=== PATIENT | female | born 1995 | race Caucasian/White ===

== ENCOUNTER 2024-05-08 16:05 | Outpatient (CLI) | payer BC, SELFPAY ==
--- NOTE | ~2024-05-08 | US_ITS ---
CORRECTED REPORT corrected examination description, added w TV [facility] [place] 05/09/24 This report was recreated on 05/09/24. Original report was signed by EXAMINATION: US OB <= 14 weeks fetus w TV INDICATION: threatened miscarriage TECHNIQUE: Sonography of the pelvis was performed by transabdominal and transvaginal techniques. COMPARISON: None. RESULT: Uterus: 8.9 x 4.7 x 4.2 cm. Anteverted. Homogenous myometrium. Intrauterine gestational sac: Single present. Mean Sac Diameter: 1.46 cm, corresponding gestational age 6 week 2 days. Yolk sac: 0.24 cm . Embryo: Single present. [place] rump length: 0.61 cm, corresponding gestational age 6 weeks, 3 days. Gestational heart rate: present 112 bpm. Subgestational hematoma: Absent . Right ovary: 3.7 x 3.1 x 2.4 cm. Vascular flow is present. Corpus luteal cyst. Left ovary: 3.7 x 1.5 x 1.7 cm. Vascular flow is not well demonstrated. No adnexal mass. Pelvis free fluid: Small volume free fluid, within physiologic range. IMPRESSION: Single, live intrauterine gestation. bradycardia. Estimated Gestational Age: 6 weeks, 3 days by crown rump length. BIANCA by ultrasound 12/29/2024. Vascular flow not well demonstrated in the left ovary. This is probably related to technical artifact unless there are accompanying clinical findings of ovarian torsion. Reviewed, dictated and finalized at location [facility]. MTDD IMPRESSION: Single, live intrauterine gestation. bradycardia. Estimated Gestational Age: 6 weeks, 3 days by crown rump length. BIANCA by ultras ound 12/29/2024. Vascular flow not well demonstrated in the left ovary. This is probably related to technical artifact unless there are accompanying clinical findings of ovari an torsion.
== END 2024-05-08 16:06 | disposition home or self-care (01) ==
LOC: ANHIMG 16:11
PROVIDERS: Visit Provider Advanced Practice Midwife
DX: O20.0 Threatened abortion (principal); O36.8390 Maternal care for abnormalities of the fetal heart rate or rhythm, unspecified trimester, not applicable or unspecified; Z3A.00 Weeks of gestation of pregnancy not specified
CPT/HCPCS: 76801; 76817

== ENCOUNTER 2024-08-25 13:20 | Observation (INO) | payer BC, SELFPAY ==
[2024-08-25 12:52] VITALS: BP 144/76; PULSE 87
[2024-08-25 13:00] VITALS: BP 151/71; PULSE 81
[2024-08-25 13:53] VITALS: BMI 35.7
--- NOTE | 2024-08-30 16:10 | PM.OBTRLD ---
OB - Triage/Final Diagnosis Visit Information Date of evaluation: 08/28/24 Reason for evaluation: other (vaginal bleeding) Comments/Additional reasons for admission: I have assessed the risk for this patient, Briseida Stout, and determined that she would benefit from observation care.
--- OUTSIDE RECORDS SUMMARY | 2024-08-31 06:46 | XMS_ITS | Data Portability ---
Author Organization [facility] [place] Address [address] [place] [address] [place] [address] Assessment Encounter Date Assessment Date Assessment LastModified by Organization Details LastModified Time 07/19/2024 07/19/2024 Patient is ___weeks . Discussed plan. Not available 07/19/2024 17:23:17 08/16/2024 08/16/2024 Patient is __21_weeks . Discussed plan. [email or web address] Not available 08/16/2024 16:17:22 Plan of Treatment Reminders Order Date Submit Date Provider Last Modified By Organization Details Last Modified Time Details Appointments OB ROUTINE 2024 03:45P M Mirna Traylor CNM Not available Not available Not available Lab None recorded. Referral None recorded. Procedures None recorded. Surgeries None recorded. Imaging US, obstetric , nuchal transluce ncy 2023 024 [email or web address] [place] [facility] [address], [place], [address], 06/21/2024 22:05:47 US, obstetric , limited 2024 025 [email or web address] [place] [facility] [address], [place], [address], 08/15/2024 21:20:04 Medication Orders None recorded. Patient TargetsNo targets recorded. Patient InstructionsNo instructions recorded. Reason for Referral None Reported. Results Created Date Observation Date Name Description Value Unit Range Abnormal Flag Note LastModifiedBy Organization Detail LastModifiedTime 06/16/20 24 06/16/2024 [UNIT Y] ANEUP LOIDY NIPT fraction 5.3% normal Not Available [facility] [address] , [place], [address], 06/16/2024 02:02:48 06/16/20 24 06/16/2024 [UNIT Y] ANEUP LOIDY NIPT 22Q11.2 microdeletio n LOW RISK <1 in 10,000 normal Not Available [facility] [address], [place], [address], 06/16/2024 02:02:48 06/16/20 24 06/16/2024 [UNIT Y] ANEUP LOIDY NIPT sex chromosome aneuploidy NOT DETECT ED normal Not Available [facility] [address], [place], [address], 06/16/2024 02:02:48 06/16/20 24 06/16/2024 [UNIT Y] ANEUP LOIDY NIPT monosomy X LOW RISK <1 in 10,000 normal Not Available [facility] [address], [place], [address], 06/16/2024 02:02:48 06/16/20 24 06/16/2024 [UNIT Y] ANEUP LOIDY NIPT trisomy 13 LOW RISK <1 in 10,000 normal Not Available [facility] [address] , [place], [address], 06/16/2024 02:02:48 06/16/20 24 06/16/2024 [UNIT Y] ANEUP LOIDY NIPT trisomy 18 LOW RISK <1 in 10,000 normal Not Available [facility] [address], [place], [address], 06/16/2024 02:02:48 06/16/20 24 06/16/2024 [UNIT Y] ANEUP LOIDY NIPT trisomy 21 LOW RISK <1 in 10,000 normal Not Available [facility] [address] , [place], [address], 06/16/2024 02:02:48 06/16/20 24 06/16/2024 [UNIT Y] ANEUP LOIDY NIPT sex MALE normal Not Available [facility] [address], [place], [address], 06/16/2024 02:02:48 06/16/20 24 06/16/2024 [UNIT Y] ANEUP LOIDY NIPT gestation SINGLE TON normal Not Available [facility] [address], [place], [address], 06/16/2024 02:02:48 06/16/20 24 06/16/2024 [UNIT Y] ANEUP LOIDY NIPT for detailed report, see pdf See PDF normal Not Available [facility] [address], [place], [address], 06/16/2024 02:02:48 06/23/20 24 06/23/2024 [UNIT Y] EZEKIEL Ordoñez sickle cell disease/beta -thalassemia /hemoglobino pathies carrier screen NEGATI VE normal Not Available [facility] [address], [place], [address], 06/23/2024 02:36:24 06/23/20 24 06/23/2024 [UNIT Y] EZEKIEL Ordoñez alpha-thalas semia carrier screen NEGATI VE normal Not Available [facility] [address], [place], [address], 06/23/2024 02:36:24 06/23/20 24 06/23/2024 [UNIT Y] EZEKIEL Ordoñez cystic fibrosis carrier screen NEGATI VE normal Not Available [facility] [address], [place], [address], 06/23/2024 02:36:24 06/23/20 24 06/23/2024 [UNIT Y] EZEKIEL Ordoñez spinal muscular atrophy carrier screen NEGATI VE 2 SMN1 copies , SNP not presen t normal Not Available [facility] [address] [facility], [place], [address], 06/23/2024 02:36:24 06/23/20 24 06/23/2024 [UNIT Y] EZEKIEL RADHA ULLOA Smita for detailed report, see pdf See PDF normal Not Available [facility] [address] [facility], [place], [address], 06/23/2024 02:36:24 05/24/20 24 05/24/2024 CT/GC AND TRICH OMONA S VAGIN SUHAIL (RRNA ), URINE chlamydia trachomatis, PCR Negati ve negati ve Not Available [facility] (Lab) [address], [place], [address], 05/25/2024 14:53:59 05/24/20 24 05/24/2024 CT/GC AND TRICH OMONA S VAGIN SUHAIL (RRNA ), URINE neisseria gonorrhoeae, PCR Negati ve negati ve Not Available [facility] (Lab) [address], [place], [address], 05/25/2024 14:53:59 05/24/20 24 05/24/2024 CT/GC AND TRICH OMONA S VAGIN SUHAIL (RRNA ), URINE trichomonas vaginalis ribosomal RNA (rrna) Negati ve negati ve Not Available [facility] (Lab) [address], [place], [address], 05/25/2024 14:53:59 05/24/20 24 05/24/2024 pregn michael test, urine HCG positi ve Not Available [place] [address], [place], [address], 05/24/2024 18:21:26 06/21/2006/21/2024 CULTU RE: URINE result report SEE RESULT S BELOW Test: Cultu re: Urine Speci men Sourc e: Urine - Clean Catch Speci men Type: Urine Speci men Date: 06/21 1747 Resul t Date: 06/227 Resul t Statu s: Final resul t Abnor mal: No Resul ting Lab: [facility] [address] [facility] [facility] [address] Tel: CULTU RE ----- ----- ----- --- No growt h in 1 day (dete ction level of 10,00 0 colon ies / ml.) Not Available [facility] (Lab) [address], [place], [address], 06/22/2024 23:52:26 06/21/20 24 06/21/2024 HIV 1/2 ANTIG EN/AN TIBOD Y, REFLE X CONFI RMATI ON HIV antigen/anti body Nonrea ctive nonrea ctive HIV-1 antig en and HIV-1 /HIV- 2 antib odies were not detec sharif. No labor atory evide nce of HIV infec tion. Not Available [facility] (Lab) [address], [place], [address], 06/23/2024 12:24:16 06/21/20 24 06/21/2024 CBC W/DIF F WBC 12.2 10'3/ uL 3.5-10 .5 high Not Available [facility] (Lab) [address], [place], [address], 06/23/2024 12:24:17 06/21/20 24 06/21/2024 CBC W/DIF F RBC 4.04 10'6/ uL (based on docume nted legal sex) 3.80-5 .20 Not Available [facility] (Lab) [address], [place], [address], 06/23/2024 12:24:17 06/21/20 24 06/21/2024 CBC W/DIF F HGB 12.0 g/dL (based on docume nted legal sex) 11.6-1 5.4 Not Available [facility] (Lab) [address], [place], [address], 06/23/2024 12:24:17 06/21/20 24 06/21/2024 CBC W/DIF F HCT 36.5 % (based on docume nted legal sex) 34.0-4 5.0 Not Available [facility] (Lab) [address], [place], [address], 06/23/2024 12:24:17 06/21/20 24 06/21/2024 CBC W/DIF F MCV 90.3 fL 80.0-9 9.0 Not Available [facility] (Lab) [address], [place], [address], 06/23/2024 12:24:17 06/21/20 24 06/21/2024 CBC W/DIF F MCH 29.7 pg 27.0-3 4.0 Not Available [facility] (Lab) [address], [place], [address], 06/23/2024 12:24:17 06/21/20 24 06/21/2024 CBC W/DIF F MCHC 32.9 g/dL 32.0-3 5.5 Not Available [facility] (Lab) [address], [place], [address], 06/23/2024 12:24:17 06/21/20 24 06/21/2024 CBC W/DIF F RDW 12.7 % 11.0-1 5.0 Not Available [facility] (Lab) [address], [place], [address], 06/23/2024 12:24:17 06/21/20 24 06/21/2024 CBC W/DIF F plt 376 10'3/ uL 150-40 0 Not Available [facility] (Lab) [address], [place], [address], 06/23/2024 12:24:17 06/21/20 24 06/21/2024 CBC W/DIF F MPV 10.2 fL 8.8-12 .1 Not Available [facility] (Lab) [address], [place], [address], 06/23/2024 12:24:17 06/21/20 24 06/21/2024 CBC W/DIF F NRBC's 0.0 % 0.0 Not Available [facility] (Lab) [address], [place], [address], 06/23/2024 12:24:17 06/21/20 24 06/21/2024 CBC W/DIF F absolute NRBCs 0.0 10'3/ uL no refere nce range establ ished Not Available [facility] (Lab) [address], [place], [address], 06/23/2024 12:24:17 06/21/20 24 06/21/2024 CBC W/DIF F neutrophils 67.3 % 34.0-7 3.0 Not Available [facility] (Lab) [address], [place], [address], 06/23/2024 12:24:17 06/21/20 24 06/21/2024 CBC W/DIF F lymphocytes 24.1 % 15.0-5 0.0 Not Available [facility] (Lab) [address], [place], [address], 06/23/2024 12:24:17 06/21/20 24 06/21/2024 CBC W/DIF F monocytes 7.3 % 1.0-15 .0 Not Available [facility] (Lab) [address], [place], [address], 06/23/2024 12:24:17 06/21/20 24 06/21/2024 CBC W/DIF F eosinophils 0.5 % 0.0-8. 0 Not Available [facility] (Lab) [address], [place], [address], 06/23/2024 12:24:17 06/21/20 24 06/21/2024 CBC W/DIF F basophils 0.4 % 0.0-2. 0 Not Available [facility] (Lab) [address], [place], [address], 06/23/2024 12:24:17 06/21/20 24 06/21/2024 CBC W/DIF F immature granulocytes 0.4 % no define d refere nce range Not Available [facility] (Lab) [address], [place], [address], 06/23/2024 12:24:17 06/21/20 24 06/21/2024 CBC W/DIF F absolute neutrophils 8.2 10'3/ uL 1.5-8. 0 high Not Available [facility] (Lab) [address], [place], [address], 06/23/2024 12:24:17 06/21/20 24 06/21/2024 CBC W/DIF F absolute lymphocytes 3.0 10'3/ uL 1.0-4. 0 Not Available [facility] (Lab) [address], [place], [address], 06/23/2024 12:24:17 06/21/20 24 06/21/2024 CBC W/DIF F absolute monocytes 0.9 10'3/ uL 0.2-1. 0 Not Available [facility] (Lab) [address], [place], [address], 06/23/2024 12:24:17 06/21/20 24 06/21/2024 CBC W/DIF F absolute eosinophils 0.1 10'3/ uL 0.0-0. 6 Not Available [facility] (Lab) [address], [place], [address], 06/23/2024 12:24:17 06/21/20 24 06/21/2024 CBC W/DIF F absolute basophils 0.1 10'3/ uL 0.0-0. 3 Not Available [facility] (Lab) [address] [place], [address], 06/23/2024 12:24:17 06/21/20 24 06/21/2024 CBC W/DIF F absolute immature granulocytes 0.1 10'3/ uL 0.00-0 .10 06/22 3:26 AM: P indic ates parti al resul ts on a panel have been relea sed. Addit ional resul ts will follo w. 06/22 3:26 AM: This resul t has been final verif ied. No addit ional or smith ed resul ts are expec sharif. Not Available [facility] (Lab) [address], [place], [address], 06/23/2024 12:24:17 06/21/20 24 06/21/2024 drug scree n, urine Amphetamines : negati ve Not Available [place] [address], [place], [address], 06/21/2024 18:33:18 06/21/20 24 06/21/2024 drug scree n, urine Cannabinoids : negati ve Not Available [place] [address], [place], [address], 06/21/2024 18:33:18 06/21/20 24 06/21/2024 drug scree n, urine Cocaine: negati ve Not Available [place] [address], [place], [address], 06/21/2024 18:33:18 06/21/20 24 06/21/2024 drug scree n, urine Opiates: negati ve Not Available [place] [address], [place], [address], 06/21/2024 18:33:18 06/21/20 24 06/21/2024 drug scree n, urine Phenocyclidi ne: negati ve Not Available [place] [address], [place], [address], 06/21/2024 18:33:18 11/13/06/21/2024 drug scree n, urine Barbiturates : negati ve Not Available [place] [address], [place], [address], 06/21/2024 18:33:18 06/21/20 24 06/21/2024 drug scree n, urine Benzodiazepi mckayla: negati ve Not Available [place] [address], [place], [address], 06/21/2024 18:33:18 06/21/20 24 06/21/2024 drug scree n, urine Ethanol: negati ve Not Available [place] [address], [place], [address], 06/21/2024 18:33:18 06/21/20 24 06/21/2024 drug scree n, urine Hallucinogen s: negati ve Not Available [place] [address], [place], [address], 06/21/2024 18:33:18 06/21/20 24 06/21/2024 drug scree n, urine Inhalants: negati ve Not Available [place] [address], [place], [address], 06/21/2024 18:33:18 06/21/20 24 06/21/2024 drug scree n, urine Anabolic Steroids: negati ve Not Available [place] [address], [place], [address], 06/21/2024 18:33:18 06/21/20 24 06/21/2024 drug scree n, urine Other: negati ve Not Available [place] [address], [place], [address], 06/21/2024 18:33:18 05/24/20 24 05/24/2024 US, obste tric, follo w-up No observ ation record ed. KENIA [address], [place], [address], 05/26/2024 11:26:49 06/21/20 24 06/21/2024 US, obste tric, nucha l trans lucen cy No observ ation record ed. [email or web address] [place] [address], [place], [address], 06/21/2024 18:22:27 06/21/20 24 06/21/2024 US, obste tric, follo w-up No observ ation record ed. [address], [place], [address], 06/22/2024 17:30:11 07/24/20 24 07/24/2024 US, obste tric, trans abdom inal + trans vagin al No observ ation record ed. [email or web address] [facility] [place] [address], [place], [address], 08/18/2024 17:50:21 07/24/20 24 07/24/2024 US, obste tric, trans abdom inal + trans vagin al No observ ation record ed. [email or web address] [facility] [place] [address], [place], [address], 07/25/2024 07:35:37 08/15/19 25 08/15/2024 US, obste tric, limit ed No observ [facility]ion [facility]. [email or web address] [address], [place], [address], 08/15/2024 16:34:43 08/15/19 25 08/15/2024 US, obste tric, limit ed No observ ation record ed. [email or web address] [address], [place], [address], 08/15/2024 21:49:01 08/21/19 25 08/21/2024 US, obste tric, trans abdom inal + trans vagin al No observ ation record ed. [address] [facility] [address], [place], [address], 08/23/2024 13:00:24 08/25/19 25 08/25/2024 US, obste tric, trans abdom inal + trans vagin al No observ ation record ed. [address] [facility] [address], [place], [address], 08/29/2024 07:26:46 08/28/19 25 08/28/2024 US, obste tric, trans abdom inal + trans vagin al No observ ation record ed. [address] [facility] [address], [place], [address], 08/29/2024 07:26:16 08/28/19 25 08/28/2024 US, obste tric, trans abdom inal + trans vagin al No observ ation record ed. [address], [place], [address], 08/29/2024 07:26:40 Result Notes None recorded. Problems Name Problem SNOMED Code Status Onset Date Resolution Date Notes Provider Name and Address Organization Details Recorded Time Anxiety 16742196 Active sees mfm at [facility] Scheduled 08/21 & 08/28 Level II US and consult Yaa zamora [facility] 5 13:00:04 Asthma 467079632 Active 2023 Roya zamora [facility] 4 20:15:22 24822169 Active 2023 Roya zamora [facility] 4 19:30:51 Bicornuat e uterus 84204413 Active Yaa zamora [facility] 4 15:42:51 Bicornuat e uterus 86160466 Active Yaa Almazan sera, [facility] 4 15:42:51 Anxiety 57342731 Active sees mfm at [facility] Scheduled 08/21 & 08/28 Level II US and consult Yaa Almazan sera, [facility] 5 13:00:04 Problem Notes None recorded. Procedures Surgical History Date Name Laterality Status Provider Name and Address Organization Details Recorded Time 4 Date of Last Pap Smear completed Roya Albrecht [facility] 05/24/2024 18:21:00 8 [facility] 20:17:58 Imaging Results Imaging Date Name Status LastModified by Organization Details LastModified Time 05/24/2024 US, obstetric, follow-up completed KENIAJOANIE [address], [place], [address], 05/26/2024 11:26:49 06/21/2024 US, obstetric, nuchal translucency completed [email or web address] [place] [address], [place], [address], 06/21/2024 18:22:27 06/21/2024 US, obstetric, follow-up completed [email or web address] [address], [place], [address], 06/22/2024 17:30:11 07/24/2024 US, obstetric, transabdominal + transvaginal completed [email or web address] [facility] [place] [address], [place], [address], 08/18/2024 17:50:21 07/24/2024 US, obstetric, transabdominal + transvaginal completed [email or web address] [facility] [place] [address], [place], [address], 07/25/2024 07:35:37 08/15/2024 US, obstetric, limited completed [facility] [address], [place], [address], 08/15/2024 16:34:43 08/15/2024 US, obstetric, limited completed [email or web address] [address], [place], [address], 08/15/2024 21:49:01 08/21/2024 US, obstetric, transabdominal + transvaginal completed [address] [facility] [address], [place], [address], 08/23/2024 13:00:24 08/25/2024 US, obstetric, transabdominal + transvaginal active [address] [place], [address], 08/29/2024 07:26:46 08/28/2024 US, obstetric, transabdominal + transvaginal completed [address] [place], [address], 08/29/2024 07:26:16 08/28/2024 US, obstetric, transabdominal + transvaginal completed [address], [address], 08/29/2024 07:26:40 Procedure Notes None recorded. Medical Equipment None Reported. Allergies Allergen ID Allergen Name Allergen Category Reaction Reaction Severity Criticality Documentation Date Start Date Code Code System Note Provider Name and Address Organization Details Recorded Time 21757 ethinyl estradiol / levonorge strel medicatio n headache moderate Not available 05/24/2024 02188 8 RxNorm Roya Albrecht [facility] [place] - [facility] 20:10:59 Medications Name Sig Start Date Stop Date Status Note LastModified by Organization Details LastModified Time azithromyci n 250 mg tablet TAKE 2 TABLETS BY MOUTH FOR 1 DAY THEN TAKE 1 TABLET BY MOUTH DAILY FOR 4 DAYS 06/15 completed Not Available Not Available Not Available fluconazole 150 mg tablet TAKE 1 TABLET BY MOUTH 1 TIME 07/19 completed Not Available Not Available Not Available benzonatate 200 mg capsule 05/24 completed Not Available Not Available Not Available ondansetron HCl 4 mg tablet Take 1 tablet every 4-6 hours by oral route as needed. active Not Available Not Available No t Available prednisone 20 mg tablet 05/24 completed Not Available Not Available Not Available clonazepam 0.5 mg tablet TAKE 1 TABLET BY MOUTH TWICE DAILY NEEDED FOR ANXIETY 05/24 completed Not Available Not Available Not Available spironolact one 100 mg tablet TAKE 1 TABLET BY MOUTH DAILY 05/24 completed Not Available Not Available Not Available amoxicillin 875 mg tablet 06/15 completed Not Available Not Available Not Available albuterol sulfate HFA 90 mcg/actuati on aerosol inhaler INHALE 2 PUFFS BY MOUTH EVERY 6 HOURS NEEDED FOR WHEEZING active Not Available Not Available No t Available metformin ER 500 mg tablet,exte nded release 24 hr TAKE 1 TABLET BY MOUTH TWICE DAILY 05/24 completed Not Available Not Available Not Available amoxicillin 875 mg-potassiu m clavulanate 125 mg tablet TAKE 1 TABLET BY MOUTH TWICE DAILY FOR 7 DAYS 05/24 completed Not Available Not Available Not Available Lessina 0.1 mg-20 mcg tablet TAKE 1 TABLET BY MOUTH EVERY DAY 05/24 completed Not Available Not Available Not Available clonazepam 0.5 mg disintegrat ing tablet 05/24 completed Not Available Not Available Not Available canaglifloz in 150 mg-metformi n 500 mg tablet 05/24 completed Not Available Not Available Not Available albuterol 90 mcg-budeson carolina 80 mcg/actuati on HFA aerosol inhaler 05/24 completed Not Available Not Available Not Available Vitals Date Recorded Body height Body mass index (BMI) Body weight Systolic blood pressure Diastolic blood pressure Provider Name and Address Organization Details Last Updated DateTime 06/21/2024 162.56 cm 34.3 kg/m2 57477.47 g 137 mm[Hg] 66 mm[Hg] Roya Albrecht [facility] 4 18:30:59 Date Recorded Body weight Body mass index (BMI) Body height Systolic blood pressure Diastolic blood pressure Provider Name and Address Organization Details Last Updated DateTime 07/19/2024 11002.25 111 g 34.8 kg/m2 162.56 cm 124 mm[Hg] 81 mm[Hg] Roya Albrecht [facility] 4 17:23:54 Date Recorded Body height Body mass index (BMI) Body weight Systolic blood pressure Diastolic blood pressure Provider Name and Address Organization Details Last Updated DateTime 08/16/2024 162.56 cm 35.7 kg/m2 38709.21 296 g 139 mm[Hg] 83 mm[Hg] Roya Albrecht [facility] 5 15:12:23 Date Recorded Body height Body mass index (BMI) Body weight Systolic blood pressure Diastolic blood pressure Provider Name and Address Organization Details Last Updated DateTime 08/24/2024 162.56 cm 35.9 kg/m2 86582.80 533 g 134 mm[Hg] 66 mm[Hg] Roya Albrecht [facility] 5 09:04:53 Social History Question Answer Notes LastModified by Organizat ion Details LastModified Time Tobacco Smoking Status Never Smoker Roya Albrecht [facility] 05/24/2024 20:17:42 What Is Your Level Of Alcohol Consumption? None [email or web address] Information not available 05/24/2024 If You Are , What Was Your Level Of Alcohol Consumption Prior To ? Occasional [email or web address] Information not available 05/24/2024 How Many Years Have You Consumed Alcohol? 8 [email or web address] Information not available 05/24/2024 Are You Blind Or Do You Have Difficulty Seeing? No [email or web address] Information n ot available 05/24/2024 What Is Your Level Of Caffeine Consumption? Moderate [email or web address] Information not available 05/24/2024 In The 14 Days Before Symptom Onset, Have You Had Close Contact With A Laboratory-confirm ed COVID-19 While That Case Was Ill? No [email or web address] Information n ot available 05/24/2024 In The 14 Days Before Symptom Onset, Have You Had Close Contact With A Person Who Is Under Investigation For COVID-19 While That Person Was Ill? No [email or web address] Information not available 05/24/2024 Have You Been To An Area Known To Be High Risk For COVID-19? No [email or web address] Information not available 05/24/2024 Are You Deaf Or Do You Have Serious Difficulty Hearing? No [email or web address] Information not available 05/24/2024 What Type Of Diet Are You Following? REGULAR [email or web address] Information n ot available 05/24/2024 What Is The Highest Grade Or Level Of School You Have Completed Or The Highest Degree You Have Received? 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 Yes [email or web address] Information not available 05/24/2024 Do You Use Protection During Sex? No [email or web address] Information not available 05/24/2024 Do You Use Your Seat Belt Or Car Seat Routinely? Yes [email or web address] Information not available 05/24/2024 Do You Have Smoke And Carbon Monoxide Detectors In Your Home? Yes [email or web address] Information not available 05/24/2024 How Much Tobacco Do You Smoke? No [email or web address] Information not available 05/24/2024 Do You Feel Stressed (tense, Restless, Nervous, Or Anxious, Or Unable To Sleep At Night)? [id number] [email or web address] Information not available 05/24/2024 Do You Use Any Illicit Or Recreational Drugs? Yes Information not available 05/24/2024 Do You Use Sunscreen Routinely? No [email or web address] Information not available 05/24/2024 Has Tobacco Cessation Counseling Been Provided? Yes [email or web address] Information not available 05/24/2024 On What Date Was Tobacco Cessation Counseling Provided? 08/16/2024 [email or web address] Information not available 08/16/2024 Have You Used IV Drugs? No [email or web address] Information not available 05/24/2024 Do You Or Have You Ever Used Any Other Forms Of Tobacco Or Nicotine? No [email or web address] Information not available 05/24/2024 Sex: Unknown Functional Status Question Answer Note LastModified by Organizat ion Details LastModified Time Do you have difficulty walking or climbing stairs? No [email or web address] Information not available 05/24/2024 Are you able to walk? YESWOREST [email or web address] Information not available 05/24/2024 Are you able to care for yourself? Yes [email or web address] Information not available 05/24/2024 Do you have difficulty dressing or bathing? No [email or web address] Information not available 05/24/2024 What is your exercise level? Occasional [email or web address] Information not available 05/24/2024 Mental Status None recorded. Family History Relationship Description Onset Age of this Age Resolved Age Notes LastModified by Organization Details LastModified Time Father Diabetes mellitus [email or web address] Not available 05/24 18:21:00 Maternal Grandmother Malignant tumor of breast 60 Not available 05/24 20:17:04 Paternal Uncle Malignant tumor of lung [email or web address] Not available 05/24 20:17:14 Medical History Condition Response Allergies (Food, seasonal, environmental ) Y Other N Drug/Latex Allergies/Reactions N Blood Transfusion N Breast Cancer N Dermatologic Disorders N Lung Disease N Defects or Inherited Disease N Breast Problem Y Gestational Diabetes N Hematologic disorders N Anesthesia Complications N History of STI Y Deep Vein Thrombosis N Polycystic ovary syndrome N Anxiety Disorder Y Autoimmune disease N Arthritis N Polyps N Infertility N Acid Reflux (GERD) N History of abnormal pap Y Cancer N Varicosities N Stroke N Neurologic/Epilepsy N Endometriosis N High Cholesterol N Fibromyalgia N Headaches Y Kidney Disease N Heart Problems N Thyroid Problems N Kidney or Bladder Problems N GI Problems N Eating Disorder N Anemia N Art (IVF or FET) N Psychiatric Illness N Ovarian Cancer N Diabetes N Pulmonary (TB, Asthma) N Hepatitis/Liver Disease N No Past Medical History N Eczema N Urinary Tract Infection N Abuse/Domestic Violence N Asthma Y Trauma/Violence N Depression/ depression Y Heart Disease N Pre-Eclampsia N Hypertension N Osteoporosis N Thrombophilias N Gynecological History Statement/Question Response Abnormal Pap Y Date of Last Mammogram Date of LMP 03/18/2024 On BCP's at Conception? N Was last menstrual period normal Y STIs/STDs Y HPV Vaccine Y Duration of Flow (days) 6 Current Control Method Date of Last Colonoscopy Frequency of Cycle (Q days) 28 Sexually Active? Y Date of DEXA bone scan Age of first menstrual cycle 12 Date of Last Pap Smear 02/03/2024 Sexual Problems? N LMP Definite 03/02/2020 Obstetrics History GPAL:G 1 P 0 0 0 0 Type Value Living 0 Total 1 Past Encounters Encounter ID Performer Location Encounter Start Date Encounter Closed Date Diagnosis/Indication Diagnosis SNOMED-CT Code Diagnosis ICD10 Code Diagnosis Note [id number] Lenore Hernandez [place] [address],[place] [address] 05/24/2024 16:32:42 05/24/2024 17:47:12 [id number] Mirna Traylor [place] [address],[place] [address] 05/24/2024 16:33:03 05/25/2024 09:42:07 Amenorrhea 25866847 N91.2 pap not collected, records release signedasth ma-inhaler as neededPNV dailywill talk to dr. herrera about clonazepam , will await her answer, only use as necessary prn usereviewe d office, precaution s and education plan 12 week new ob and first look with nipt Venereal d isease screening 129448903 Z11.3 Anxiety 25041423 F41.9 [id number] [facility] [address],[place] [address] 06/21/2024 17:33:21 06/22/2024 02:59:39 screening 578976793 Z36.82 Z3A.12 [id number] Mirna Traylor [facility] [address] [place] [address] 06/21/2024 17:34:12 06/23/2024 12:41:54 Gestation period, 13 weeks 70369972 Z3A.13 Routine an tenatal care 032021701 Z34.90 [id number] Mirna Traylor [facility] [address] [place] [address] 07/19/2024 17:12:06 07/19/2024 17:48:43 [id number] Lenore Hernandez [place] [address],[place] [address] 08/15/2024 14:26:05 08/15/2024 15:13:27 Abdominal pain in 381488843 O99.891 Z3A.21 [id number] [facility] [address],[place] [address] 08/16/2024 14:58:53 08/16/2024 16:21:44 Gestation period, 21 weeks 70240735 Z3A.21 [id number] [facility] [address],[place] [address] 08/24/2024 08:55:14 08/24/2024 10:27:52 Short cervical length in 982443530 O26.879 discussed and reviewed us, cerclage, progestero ne, f/u mfm and await rec Health Concerns Section Related Observation LastModified by Organization Detai ls LastModified Time None Recorded Concern Status LastModified by Organization Details LastModified Time None Recorded Advance Directives Directive None Recorded Payers Encounter Date Sequence Insurance Name Policy Number Policy Barry Covered Member ID Barry Member ID Guarantor Name 06/21/2024 1 [place] [id number] Radeana Gentzyel [id number] 27 Radeana Gentzyel 07/19/2024 1 [place] [id number] Radeana Gentzyel [id number] 27 Radeana Gentzyel 08/15/2024 1 [place] [id number] Radeana Gentzyel [id number] 27 Radeana Gentzyel 08/16/2024 1 [place] [id number] Radeana Gentzyel [id number] 27 Radeana Gentzyel 08/24/2024 1 [place] [id number] Radeana Gentzyel [id number] 27 Radeana Gentzyel Notes Date Note Type Note Provider Name and Address Organization Details Recorded Time 08/24/2024 text/html had an us at [facility] and wants to review, short cervical length started on vaginal progesterone Mirna Traylor, [facility] [address], [place], [address], [place] [facility] 08/24/2024 09:52:34 OBGyn Episode Ob Episode Information Episode Created Date Number of Fetuses Patient Bloodtype Patient rh Status Prepregnancy Weight lbs Domestic Partner Domestic Partner Phone Father Name Microbial Specialist Status 06/21/20 24 1 O Positive 202 Amarilis Murry l OPEN Fetus Data First Name Last Name Admitted to NICU Weight (g) Sex Living Outcome Pediatric Complications Fetus ID Race Codes Race Delivery Type [id number] Problems Problem Notes Problem Name Start Date End Date Resolution Snomed Code Not e Bicornuate uterus 80190577 Anxiety 26119785 [facility] & 08/28 Level II US and consult Esteban Calculation Initial Esteban Date Initial Exam Date Initial Exam Provider Initial Ultrasound Date Last Menstrual Period Date Ultra Sound Weeks Gestation 12/23/2024 05/24/2024 Mirna Traylor 05/24/2024 03/18/2024 8 Eighteen To Twenty Week Esteban Update Ultra Sound Date Fundal Height At Umbil Quickening Date Ultra Sound Latest Weeks Gestation Final Etseban Confirmed By Final Esteban Confirmed Date Final Esteban Date Ultra Sound Latest Days Gestation 0 [email or web address] 08/22/2024 12/29/19 25 0 Pre- Flowsheet Flowsheet Date 06/21/2024 Fields Score Blood Edema Fundus Height Fundus Units Glucose Ketones Leukocytes Nitrite Labor Signs Protein Cervic Dilation Cervic Effacement Cervic Station neg none none trace Type Weight in lbs Pre/Post Dialysis Refused Weight 200.442757459307 BP Diastolic BP Location Tested BP Systolic BP Type 66 137 Fetus Heart Rate Present Fetus Movement A No Comments Patient is having some pain and discharge. reviewed precaution, education, reviewed us bicornuate uterus, to [facility] to for consult, risk of depression/anxiety in and pp. begin routine care Flowsheet Date 07/19/2024 Fields Score Blood Edema Fundus Height Fundus Units Glucose Ketones Leukocytes Nitrite Labor Signs Protein Cervic Dilation Cervic Effacement Cervic Station none Type Weight in lbs Pre/Post Dialysis Refused 203.93775778203 BP Diastolic BP Location Tested BP Systolic BP Type 81 124 Fetus Heart Rate Present Fetus Movement A Yes Comments Patient is having headache, discharge, nausea and vomiting. ok for excedrin tension if does not resolve call for imitrex rx, ok for otc meds as well, stuffiness and cold sxs, reviewed education and precautions f/u anatomy at 20 weeks Flowsheet Date 08/15/2024 Fields Score Blood Edema Fundus Height Fundus Units Glucose Ketones Leukocytes Nitrite Labor Signs Protein Cervic Dilation Cervic Effacement Cervic Station Type Weight in lbs Pre/Post Dialysis Refused BP Diastolic BP Location Tested BP Systolic BP Type Fetus Heart Rate Present Fetus Movement Comments Flowsheet Date 08/16/2024 Fields Score Blood Edema Fundus Height Fundus Units Glucose Ketones Leukocytes Nitrite Labor Signs Protein Cervic Dilation Cervic Effacement Cervic Station none Type Weight in lbs Pre/Post Dialysis Refused 208.100232308378 BP Diastolic BP Location Tested BP Systolic BP Type 83 139 Fetus Heart Rate Present A 147 Present Fetus Movement A Yes Comments Patient step son bounce off stomach. Patient states that is having pain and cramping. Patient was seen yesterday and was told everything was okay. US wnl, discussed precautions and education, no FM yet, anterior placenta, has visit with [facility] for level 2 next week. discussed plan questions answered Flowsheet Date 08/24/2024 Fields Score Blood Edema Fundus Height Fundus Units Glucose Ketones Leukocytes Nitrite Labor Signs Protein Cervic Dilation Cervic Effacement Cervic Station neg none Type Weight in lbs Pre/Post Dialysis Refused 209.586903243316 BP Diastolic BP Location Tested BP Systolic BP Type 66 134 Fetus Heart Rate Present Fetus Movement A Yes Comments 21wk shortened cervix MFM us per SP 8Am to discuss. Patient states that having some pain. Menstrual History Last Menstrual Date Menses Monthly On Bcp Conception Prior Menses Frequency Hcg Plus Date Menarche Onset Age 0803/18/2024 Delivery Information Delivery Date Delivery Type Labor Anesthesia Weeks Gestation Incision Type Labor Labor Length Hrs Delivered By Post Complications Tubal Sterilization Discharge Date Comments Discharge Information Feeding Method Contraceptive Method Maternal HG B and HCT Levels
--- OUTSIDE RECORDS SUMMARY | 2024-08-31 06:46 | XMS_ITS | Continuity of Care Document ---
Author Organization [facility] [place] Address [address] [place] [address] Assessment No assessment recorded. Plan of Treatment Reminders Order Date Submit Date Provider Last Modified By Organization Details Last Modified Time Details Appointments OB ROUTINE 2024 03:45P M Mirna Traylor CNM Not available Not available Not available Lab None recorded . Referral None recorded . Procedures None recorded . Surgeries None recorded . Imaging None recorded . Medication Orders None recorded . Patient TargetsNo targets recorded. Patient InstructionsNo instructions recorded. Reason for Referral None Reported. Results Created Date Observation Date Name Description Value Unit Range Abnormal Flag Note LastModifiedBy Organization Detail LastModifiedTime 06/21/20 24 06/21/2024 US, obste tric, nucha l trans lucen cy No observ ation record ed. [email or web address] [place] [address], [place], [address], 06/21/2024 18:22:27 06/21/20 24 06/21/2024 US, obste tric, follo w-up No observ ation record ed. [address], [place], [address], 06/22/2024 17:30:11 07/24/20 24 07/24/2024 US, obste tric, trans abdom inal + trans vagin al No observ ation record ed. [email or web address] [facility] [address] [facility] [facility], [place], [address], 08/18/2024 17:50:21 07/24/20 24 07/24/2024 US, obste tric, trans abdom inal + trans vagin al No observ ation record ed. [address] [facility] [place] [address], [place], [address], 07/25/2024 07:35:37 08/15/19 25 08/15/2024 US, obste tric, limit ed No observ ation record ed. [facility] [address], [place], [address], 08/15/2024 16:34:43 08/15/19 25 08/15/2024 US, obste tric, limit ed No observ ation record ed. [email or web address] [address] [facility], [place], [address], 08/15/2024 21:49:01 08/21/19 25 08/21/2024 US, obste tric, trans abdom inal + trans vagin al No observ ation record ed. [address] [facility] [place] [address], [place], [address], 08/23/2024 13:00:24 08/25/19 25 08/25/2024 US, obste tric, trans abdom inal + trans vagin al No observ ation record ed. [address] [facility] [address], [address], 08/29/2024 07:26:46 08/28/19 25 08/28/2024 US, obste tric, trans abdom inal + trans vagin al No observ ation record ed. [address], [address], 08/29/2024 07:26:16 08/28/19 25 08/28/2024 US, obste tric, trans abdom inal + trans vagin al No observ ation record ed. [address], [place], [address], 08/29/2024 07:26:40 Result Notes None recorded. Problems Name Problem SNOMED Code Status Onset Date Resolution Date Notes Provider Name and Address Organization Details Recorded Time Anxiety 52311476 Active sees mfm at [facility] Scheduled 08/21 & 08/28 Level II US and consult Yaa zamora [facility] 5 13:00:04 Asthma 098118313 [facility] 20[facility] 20:15:22 54472755 Active 2023 Roya zamora [facility] 4 19:30:51 Bicornuat e uterus 58584211 Active Yaa Almazan [facility] 4 15:42:51 Bicornuat e uterus 73804235 Active Yaa Almazan [facility] 4 15:42:51 Anxiety 67911888 Active sees mfm at [facility] Scheduled 08/21 & 08/28 Level II US and consult Yaa zamora [facility] 5 13:00:04 Problem Notes None recorded. Procedures Surgical History Date Name Laterality Status Provider Name and Address Organization Details Recorded Time 4 Date of Last Pap Smear completed Roya Albrecht [facility] 05/24/2024 18:21:00 8 Breast Surgery completed Roya Albrecht [facility] 05/24/2024 20:17:58 Imaging Results None recorded. Procedure Notes None recorded. Medical Equipment None Reported. Allergies Allergen ID Allergen Name Allergen Category Reaction Reaction Severity Criticality Documentation Date Start Date Code Code System Note Provider Name and Address Organization Details Recorded Time 18191 ethinyl estradiol / levonorge strel medicatio n headache moderate Not available 05/24/2024 78291 8 RxNorm Roya Albrecht [facility] 20:10:59 Medications Name Sig Start Date [...] Updated DateTime 08/24/2024 162.56 cm 35.9 kg/m2 04476.80 533 g 134 mm[Hg] 66 mm[Hg] Roya Albrecht [facility] 09:04:53 Social History Question Answer Notes LastModified by Organizat ion Details LastModified Time Tobacco Smoking Status Never Smoker Roya Albrecht null, [facility] 05/24/2024 20:17:42 What Is Your Level Of Alcohol Consumption? None [email or web address] Information not available 05/24/2024 If You Are , What Was Your Level Of Alcohol Consumption Prior To ? Occasional [email or web address] Information not available 05/24/2024 How Many Years Have You Consumed Alcohol? 8 [email or web address] Information not available 05/24/2024 Are You Blind Or Do You Have Difficulty Seeing? No [email or web address] Information n ot available 05/24/2024 What Is Your Level Of Caffeine Consumption? Moderate [email or web address] Information not available 05/24/2024 In The 14 Days Before Symptom Onset, Have You Had Close Contact With A Laboratory-confirm ed COVID-19 While That Case Was Ill? No Information n ot available 05/24/2024 In The 14 Days Before Symptom Onset, Have You Had Close Contact With A Person Who Is Under Investigation For COVID-19 While That Person Was Ill? No [email or web address] Information not available 05/24/2024 Have You Been To An Area Known To Be High Risk For COVID-19? No [email or web address] Information not available 05/24/2024 Are You Deaf Or Do You Have Serious Difficulty Hearing? No [email or web address] Information not available 05/24/2024 What Type Of Diet Are You Following? REGULAR [email or web address] Information n ot available 05/24/2024 What Is The Highest Grade Or Level Of School You Have Completed Or The Highest Degree You Have Received? 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 Yes [email or web address] Information not available 05/24/2024 Do You Use Protection During Sex? No [email or web address] Information not available 05/24/2024 Do You Use Your Seat Belt Or Car Seat Routinely? Yes [email or web address] Information not available 05/24/2024 Do You Have Smoke And Carbon Monoxide Detectors In Your Home? Yes Information not available 05/24/2024 How Much Tobacco Do You Smoke? No [email or web address] Information not available 05/24/2024 Do You Feel Stressed (tense, Restless, Nervous, Or Anxious, Or Unable To Sleep At Night)? NW82465-2 [email or web address] Information not available 05/24/2024 Do You Use Any Illicit Or Recreational Drugs? Yes [email or web address] Information not available 05/24/2024 Do You Use Sunscreen Routinely? No [email or web address] Information not available 05/24/2024 Has Tobacco Cessation Counseling Been Provided? Yes [email or web address] Information not available 05/24/2024 On What Date Was Tobacco Cessation Counseling Provided? 08/16/2024 [email or web address] Information not available 08/16/2024 Have You Used IV Drugs? No [email or web address] Information not available 05/24/2024 Do You Or Have You Ever Used Any Other Forms Of Tobacco Or Nicotine? No [email or web address] Information not available 05/24/2024 Sex: Unknown Functional Status Question Answer Note LastModified by Organizat ion Details LastModified Time Do you have difficulty walking or climbing stairs? No [email or web address] Information not available 05/24/2024 Are you able to walk? YESWOREST Information not available 05/24/2024 Are you able to care for yourself? Yes [email or web address] Information not available 05/24/2024 Do you have difficulty dressing or bathing? No [email or web address] Information not available 05/24/2024 What is your exercise level? Occasional [email or web address] Information not available 05/24/2024 Mental Status None recorded. Family History Relationship Description Onset Age of this Age Resolved Age Notes LastModified by Organization Details LastModified Time Father Diabetes mellitus [email or web address] Not available 05/24 18:21:00 Maternal Grandmother Malignant tumor of breast 60 [email or web address] Not available 05/24 20:17:04 Paternal Uncle Malignant tumor of lung [email or web address] Not available 05/24 20:17:14 Medical History Condition [...] SNOMED-CT Code Diagnosis ICD10 Code Diagnosis Note [id number] Lenore David [place] [address] [address] 08/15/2024 14:26:05 08/15/2024 15:13:27 Abdominal pain in 568049762 O99.891 Z3A.21 [id number] Mirna Traylor CNM [place] [address] [address] 08/16/2024 14:58:53 08/16/2024 16:21:44 Gestation period, 21 weeks 87438746 Z3A.21 [id number] Mirna Traylor CNM [place] [address] [address] 08/24/2024 08:55:14 08/24/2024 10:27:52 Short cervical length in 823347536 O26.879 discussed and reviewed us, cerclage, progestero ne, f/u [facility] and await rec Health Concerns Section Related Observation LastModified by Organization Detai ls LastModified Time None Recorded Concern Status LastModified by Organization Details LastModified Time None Recorded Payers Encounter Date Sequence Insurance Name Policy Number Policy Barry Covered Member ID Barry Member ID Guarantor Name 08/24/2024 1 [place] [id number] Radmaximo Stout [id number] Radeatricia Stout Notes Date Note Type Note Provider Name and Address Organization Details Recorded Time 08/24/2024 [email or web address] had an us at [facility] and wants to review, short cervical length started on vaginal progesterone Mirna Traylor CNM [address], [place], [address], [facility] 08/24/2024 09:52:34 OBGyn Episode Ob Episode Information Episode Created Date Number of Fetuses Patient Bloodtype Patient rh Status Prepregnancy Weight lbs Domestic Partner Domestic Partner Phone Father Name Rest Room Maid Status 06/21/20 24 1 O Positive 202 Nathana arian Murry l OPEN Fetus Data First Name Last Name Admitted to NICU Weight (g) Sex Living Outcome Pediatric Complications Fetus ID Race Codes Race Delivery Type [id number] Problems Problem Notes Problem Name Start Date End Date Resolution Snomed Code Not e Bicornuate uterus 15462058 Anxiety 54865513 sees [facility] kristi sebastianySchedstormy 08/21 & 08/28 Level II US and consult Esteban Calculation Initial Esteban Date Initial Exam Date Initial Exam Provider Initial Ultrasound Date Last Menstrual Period Date Ultra Sound Weeks Gestation 12/23/2024 05/24/2024 Mirna Traylor 05/24/2024 03/18/2024 8 Eighteen To Twenty Week Esteban Update Ultra Sound Date Fundal Height At Umbil Quickening Date Ultra Sound Latest Weeks Gestation Final Esteban Confirmed By Final Esteban Confirmed Date Final Esteban Date Ultra Sound Latest Days Gestation 0 [email or web address] 08/22/2024 12/29/19 25 0 Pre-rachid Flowsheet Flowsheet Date 06/21/2024 Fields Score Blood Edema Fundus Height Fundus Units Glucose Ketones Leukocytes Nitrite Labor Signs Protein Cervic Dilation Cervic Effacement Cervic Station neg none none trace Type Weight in lbs Pre/Post Dialysis Refused Weight 200.862300143174 BP Diastolic BP Location Tested BP Systolic BP Type 66 137 Fetus Heart Rate Present Fetus Movement A No Comments Patient is having some pain and discharge. reviewed precaution, education, reviewed us bicornuate uterus, to mfm to for consult, risk of depression/anxiety in and pp. begin routine care Flowsheet Date 07/19/2024 Fields Score Blood Edema Fundus Height Fundus Units Glucose Ketones Leukocytes Nitrite Labor Signs Protein Cervic Dilation Cervic Effacement Cervic Station none Type Weight in lbs Pre/Post Dialysis Refused 203.57993286389 BP Diastolic BP Location Tested BP Systolic [...] Type Weight in lbs Pre/Post Dialysis Refused 208.998445211780 BP Diastolic BP Location Tested BP Systolic BP Type 83 139 Fetus Heart Rate Present A 147 Present Fetus Movement A Yes Comments Patient step son bounce off stomach. Patient states that is having pain and cramping. Patient was seen yesterday and was told everything was okay. US wnl, discussed precautions and education, no FM yet, anterior placenta, has visit with m for level 2 next week. discussed plan questions answered Flowsheet Date 08/24/2024 Fields Score Blood Edema Fundus Height Fundus Units Glucose Ketones Leukocytes Nitrite Labor Signs Protein Cervic Dilation Cervic Effacement Cervic Station neg none Type Weight in lbs Pre/Post Dialysis Refused 209.568183461826 BP Diastolic BP Location Tested BP Systolic [...]
--- OUTSIDE RECORDS SUMMARY | 2024-08-31 11:34 | XMS_ITS | Clinical Summary ---
Author Organization [facility] [place] [address] Address [address] [place] [id number] Care Team Providers Care Door Opener Name Role Phone Yamel Major NP Primary Care Provider Allergies No known active allergies Medications clonazePAM (KlonoPIN) 0.5 mg tablet Take 1 tablet (0.5 mg total) by mouth 2 (two) times a day Active spironolactone (ALDACTONE) 100 mg tablet Take 1 tablet (100 mg total) by mouth daily 2 Active levonorgestreL-e thinyl estrad (LUTERA) 0.1-20 mg-mcg per tablet Take 1 tablet by mouth daily 2 Active metFORMIN XR (GLUCOPHAGE XR) 500 mg 24 hr tablet 3 Active montelukast (SINGULAIR) 10 mg tablet Take 1 tablet (10 mg total) by mouth 2 (two) times a day as needed 2 Active benzonatate (TESSALON) 200 mg capsuleIndicatio ns:Mild intermittent asthma with exacerbation Take 1 capsule (200 mg total) by mouth 3 (three) times a day as needed for cough 30 capsule 3 Active Additional Information Patient not taking.Reported on 05/29/2024 albuterol HFA (ProAir HFA) 90 mcg/actuation inhalerIndicatio ns:Acute lower respiratory infection Inhale 2 puffs every 6 (six) hours as needed for wheezing 1 each 4 Active Active Problems No known active problems Medical History Medical History Date Comments Back pain Back pain; Comme nts: [facility] 06/27/2015 - Family History Medical History Relation Name Comments Hypertension Mother Hypertension; Relation Name Status Comments Mother Social History Tobacco Use Types Packs/Day Years Used Date Smoking Tobacco: Never Smokeless Tobacco: Never Alcohol Use Standard Drinks/Week Comments No 0 (1 standard drink = 0.6 oz pur e alcohol) Personal Safety Answer Date Recorded Getting School Help Needed Not on file 10/08 Comments No Sex and Gender Information Value Date Recorded Sex Assigned at Not on file Legal Sex Female 3:49 AM [employer]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 [employer]ER Gender Identity Not on file Sexual Orientation Not on file Obstetrics History Last Filed Vital Signs Vital Sign Reading Time Taken Comments Blood Pressure 121/81 05/29/2024 9:28 AM CDT Pulse 96 05/29/2024 9:28 AM CDT Temperature 36.6 ??C (97.9 ??F) 05/29/2024 9:28 AM CD T Respiratory Rate 24 05/29/2024 9:28 AM CDT Oxygen Saturation 97% 05/29/2024 9:28 AM CDT Inhaled Oxygen Concentration - - Weight 90.3 kg (199 lb 1.6 oz) 05/29/2024 9:28 A M CDT Height 165.1 cm (5' 5 ) 05/29/2024 9:28 AM CDT Body Mass Index 33.13 05/29/2024 9:28 AM CDT Plan of Treatment Health Maintenance Due Date Last Done Comments Cervical Cancer Screening 1997 Depression Screening 1997 Hepatitis C Screening 1997 Pneumococcal vaccine <65 (1 of 2 - PCV) 2003 DTaP/Tdap/Td Vaccine (1 - Tdap) 2008 Varicella Vaccines (1 of 2 - 13+ 2-dose series) 2010 Hepatitis B Screening 2015 Regular Well Visit/Exam 18-64 2015 Influenza Vaccine (#1) 2024 1, 05/14/2019, 05/14/2019, Additional history exists HPV Vaccines Aged Out No longer eligi ble based on patient's age to complete this topic Insurance [facility] Address: [address] [address] [place] [address] Care Teams Door Opener Relationship Specialty Start Date End Date Yamel Major NP PCP - General 02/21/20
--- OUTSIDE RECORDS SUMMARY | 2024-08-31 11:34 | XMS_ITS | Clinical Summary ---
Author Organization [facility] uis Address [address] [place] [address] Phone Care Team Providers Care Middleware Architect Name Role Phone Unavailable Primary Care Provider Unavailabl e Medications progesterone 200 mg vaginal suppository compound Insert 1 Suppository vaginally daily each evening at bedtime until 36 weeks and 6 days gestation. 30 Suppository 4 08/22/2024 3:44 PM DATA DELIVERABLES MANAGER 08/22/19 25 Active Active Problems Problem Noted Date Diagnosed Date Vaginal spotting 08/25/2024 Estimated Date of Delivery Comme nts Yes 12/29/2024 Based on Other B asis Encounters Date Type Department Care Team Description 08/28/2024 8:10 AM DATA DELIVERABLES MANAGER - 08/28/2024 11:59 PM DATA DELIVERABLES MANAGER Hospital Encounter [facility] Maternal and Ground Floor S Vitaliy Delgadoas [address] [facility] [place] [address] Key Coulter MD Arrived Discharge Disposition: Home or Self Care 08/25/2024 3:15 PM DATA DELIVERABLES MANAGER - 08/25/2024 11:59 PM DATA DELIVERABLES MANAGER Hospital Encounter [facility] Maternal and Ground Floor [place] [address] [facility] [place] [address] Discharge Disposition: Home or Self Care 08/25/2024 3:00 PM DATA DELIVERABLES MANAGER - 08/25/2024 5:00 PM DATA DELIVERABLES MANAGER Hospital Encounter [facility] OB Triage [address] [facility] [place] [address] Dov Adkins MD Vaginal spotting Discharge Disposition: Home or Self Care 08/22/2024 Orders Only [facility] Maternal and Ground Floor [place] [address] [facility] [place] [address] Cosme Traylor NP Short cervix affecting (Primary Dx) 08/22/2024 Orders Only [facility] Maternal and Ground Floor [place] [address] [place] [address] Key Coulter MD 08/21/2024 3:00 PM DATA DELIVERABLES MANAGER - 08/21/2024 11:59 PM DATA DELIVERABLES MANAGER Hospital Encounter [facility] Emma Nichole [address] [place] [phone] Garrett Loja MD Discharge Disposition: Home or Self Care 07/25/2024 External Device Data STL ABSTRACTION Provider, Abstract 07/24/2024 1:56 PM DATA DELIVERABLES MANAGER - 07/24/2024 11:59 PM DATA DELIVERABLES MANAGER Hospital Encounter [facility] Emma Nichole [address] [place] [phone] Cosme Traylor NP Discharge Disposition: Home or Self Care 06/01/2024 Orders Only [facility] Maternal and Ground Floor [place] [address] [facility] [place] [address] Cosme Traylor NP drug exposure (CMS/HCC) (Primary Dx) from Last 3 Months Social History Tobacco Use Types Packs/Day Years Used Date Smoking Tobacco: Never Assessed Feeling Safe Answer Date Recorded Are you in a relationship wi th someone who hurts you emotionally and/or physically? Patient unable to answer 08/25/2024 Estimated Date of Delivery Comme nts Yes 12/29/2024 Based on Other B asis Sex and Gender Information Value Date Recorded Sex Assigned at Not on file Legal Sex Female 2:33 PM CDT Gender Identity Not on file Sexual Orientation Not on file Last Filed Vital Signs Vital Sign Reading Time Taken Comments Blood Pressure 129/62 08/25/2024 3:00 PM DATA DELIVERABLES MANAGER Pulse 81 08/25/2024 3:00 PM DATA DELIVERABLES MANAGER Temperature 36.7 ??C (98.1 ??F) 08/25/2024 3:00 PM CS T Respiratory Rate 18 08/25/2024 3:00 PM DATA DELIVERABLES MANAGER Oxygen Saturation 100% 08/25/2024 3:00 PM DATA DELIVERABLES MANAGER Inhaled Oxygen Concentration - - Weight 95.7 kg (211 lb) 08/25/2024 3:08 PM DATA DELIVERABLES MANAGER Height - - Body Mass Index - - Plan of Treatment Upcoming Encounters Date Type Department Care Team (Late st Contact Info) Description 09/18/2024 3:30 PM DATA DELIVERABLES MANAGER Appointment [facility] Maternal and Health [facility] [address] Emma Nichole 3[address] [place] [address] Key Coulter MD [address] [place] [address] 12/29/2024 Hospital Encounter [facility] OB Triage [address] [place] [address] Dov Adkins MD [address] [facility] [address] [place] [address] Health Maintenance Due Date Last Done Comments DTAP/TDAP/TD VACCINES (1 - Tdap) 2016 HEPATITIS B VACCINES (1 of 3 - 19+ 3-dose series) 2016 CERVICAL CANCER SCREENING 2018 INFLUENZA VACCINE (#1) 2024 Preventative Visit- Commercial 08/09/2024 HPV VACCINES Aged Out No longer eligi ble based on patient's age to complete this topic RSV VACCINE (60+ or ) (No Doses Required) Completed Procedures Procedure Name Priority Date/Time Associated Diagnosis Comments US OB LTD 1 OR MORE FETUS + TV Routine 08/28/2024 8:46 AM DATA DELIVERABLES MANAGER drug exposure (CMS/HCC) Obesity (BMI 30-39.9) Anxiety during Short cervix affecting US OB LTD 1 OR MORE FETUS + TV Routine 08/25/2024 4:25 PM DATA DELIVERABLES MANAGER US OB DETAIL SINGLE GEST Routine 08/21/2024 4:23 PM DATA DELIVERABLES MANAGER drug exposure (CMS/HCC) Obesity (BMI 30-39.9) Anxiety during US OB 14+ WKS SINGLE GEST Routine 07/24/2024 2:40 PM DATA DELIVERABLES MANAGER drug exposure (CMS/HCC) screening for malformation using ultrasonics from Last 3 Months Results * US OB LTD 1 OR MORE FETUS + TV (08/28/2024 8:46 AM DATA DELIVERABLES MANAGER) Only the most recent of2 resultswithin the time period is included. Anatomical Region Laterality Modality Pelvis Ultrasound 08/28/2024 8:23 AM DATA DELIVERABLES MANAGER Narrative 08/28/2024 8:55 AM DATA DELIVERABLES MANAGER STL LIMITED ----- Pat. Name: JORDI STOUT Study Date: 08/28/2024 8:23am Pat. NO: [id number] Referring ??: COSME ??FLORY TRAYLOR Site: [facility] [employer]: Sanna Rodriguez RDMS : 1995 Age: 29 ----- INDICATION ----- Cervical Shortening, Confirmed Exposure to Medications / Drugs, Suspected Damage ?clonazepam to Fetus Asthma Complicating Maternal Obesity (BMI<40) Complicating Anxiety, Maternal CODING ----- Diagnoses ? Z3A.22: Weeks of gestation ?O99.342: Other mental disorders complicating ?O99.212: Obesity complicating ?O99.512: Diseases of the respiratory system complicating ?O35.5XX0: Maternal care for (suspected) damage to fetus by drugs ?O26.872: Cervical shortening Procedures ?38654: Ultrasound, uterus, real time with image documentation, limited one or more fetuses ?54254: Ultrasound, uterus, real time with image documentation HISTORY ----- OB History ? 1. Para 0 MATERNAL ASSESSMENT ----- Physical Exam ? Weight 96 kg. Initial weight 93 kg, 204 lb. BMI 36.22 kg/m??. Initial BMI 35.02 kg/m??. Weight gain 3 kg, 7 ?lb METHOD ----- Transabdominal and transvaginal ultrasound examination ----- Chavez . Number of fetuses: 1 DATING ----- Cycle: regular cycle GA by prior assessment 22 w + 3 d BIANCA by prior assessment: 12/29/2024 Method of dating: Restore dating from previous exam Assigned: based on stated BIANCA, selected on 07/24/2024 Assigned GA 22 w + 3 d Assigned BIANCA: 12/29/2024 GENERAL EVALUATION ----- Cardiac activity present. FHR 138 bpm. movements: present. Presentation: cephalic Placenta: Placental site: anterior Umbilical cord: Cord vessels: 3 vessel cord. Insertion site: placental insertion: normal Amniotic fluid: Amount of AF: normal amount. MVP 5.2 cm ANATOMY ----- The following structures appear normal: Heart / Thorax ?Cardiac rhythm. Abdomen ? Stomach. Bladder. sex: male. MATERNAL STRUCTURES ----- Cervix ?Normal ?Approach - Transvaginal: Cervical length 19.6 mm GROWTH OVERVIEW ----- Exam date ? GA ?BPD (mm) ? HC (mm) ?AC (mm) ? FL (mm) ?HL (mm) ?EFW (g) 07/24/2024 ?17w 3d ?40.0 ?80% ?142.4 ? 45% ?127.2 ?77% ?23.1 ?26% ?24.0 ?60% ?204 ? 57% 08/21/2024 ?21w 3d ?50.1 ?38% ?191.3 ? 38% ?175.9 ?77% ?35.7 ?36% ?33.0 ?36% ?457 ? 67% COMMENT ----- Patient's name and date of were verified by the supervisor garage prior to the exam. Cha Mariscal was present for the transvaginal ultrasound and served as a paving plant operator. IMPRESSION ----- 1. Single living fetus with a gestational age of 22w 3d based on the reported clinical dates. 2. Limited anatomy appears grossly unremarkable. 3. Cervical length is 19.6mm, which is normal for gestational age. No dynamic changes or funneling noted. 4. Amniotic fluid volume is normal for gestational age. Comments: I had the pleasure of seeing your patient in follow-up for the above mentioned indications. We reviewed the overall sonographic findings and the limitations associated with ultrasound evaluations Recommendations: - Continue vaginal progesterone at this time. - No further TVU-CL. - PTL precautions reviewed. Thank you for allowing us to participate in the care of this patient. Procedure Note Keara Casillas MD - 08/28/2024 STL LIMITED ----- Pat. Name:Chantale STOUT Date:08/28/2024 8:23am Pat. NO: [id number] MD:GEETHA SMITH [facility] RDMS :1995Age:29 ----- INDICATION ----- Cervical Shortening, Confirmed Exposure to Medications / Drugs, Suspected Damage clonazepam to Fetus Asthma Complicating Maternal Obesity (BMI<40) Complicating Anxiety, Maternal CODING ----- Diagnoses Z3A.22: Weeks of gestation O99.342: Other mental disorders complicatingpregnancy O99.212: Obesity complicating O99.512: Diseases of the respiratory systemcomplicating O35.5XX0: Maternal care for (suspected) damage tofetus by drugs O26.872: Cervical shortening Procedures 40772: Ultrasound, uterus, real time withimage documentation, limited one or more fetuses 03124: Ultrasound, uterus, real time withimage documentation HISTORY ----- OB History 1. Para 0 MATERNAL ASSESSMENT ----- Physical Exam Weight 96 kg. Initial weight 93 kg, 204 lb. BMI36.22 kg/m??. Initial BMI 35.02 kg/m??. Weight gain 3 kg, 7 lb METHOD ----- Transabdominal and transvaginal ultrasound examination ----- Chavez . Number of fetuses: 1 DATING ----- Cycle:regular cycle GA by prior subpkncirp50 w + 3 d BIANCA by prior assessment:12/29/2024 Method of dating:Restore dating from previous exam Assigned:based on stated BIANCA, selected on 07/24/2024 Assigned GA22 w + 3 d Assigned BIANCA:12/29/2024 GENERAL EVALUATION ----- Cardiac activity present. FHR 138 bpm. movements: present.Presentation: cephalic Placenta: Placental site: anterior Umbilical cord: Cord vessels: 3 vessel cord. Insertion site: placentalinsertion: normal Amniotic fluid: Amount of AF: normal amount. MVP 5.2 cm ANATOMY ----- The following structures appear normal: Heart / Thorax Cardiac rhythm. Abdomen Stomach. Bladder. sex: male. MATERNAL STRUCTURES ----- Cervix Normal Approach - Transvaginal: Cervical length 19.6 mm GROWTH OVERVIEW ----- Exam date GA BPD (mm) HC (mm) AC (mm) FL(mm) HL (mm) EFW (g) 07/24/2024 17w 3d 40.0 80% 142.4 45% 127.2 77%23.1 26% 24.0 60% 204 57% 08/21/2024 21w 3d 50.1 38% 191.3 38% 175.9 77%35.7 36% 33.0 36% 457 67% COMMENT ----- Patient's name and date of were verified by the supervisor garage prior tothe exam. Cha Mariscal was present for the transvaginal ultrasound and served as a paving plant operator. IMPRESSION ----- 1. Single living fetus with a gestational age of 22w 3d based on thereported clinical dates. 2. Limited anatomy appears grossly unremarkable. 3. Cervical length is 19.6mm, which is normal for gestational age. Nodynamic changes or funneling noted. 4. Amniotic fluid volume is normal for gestational age. Comments: I had the pleasure of seeing your patient in follow-up for theabove mentioned indications. We reviewed the overall sonographic findings and the limitations associated with ultrasoundevaluations Recommendations: - Continue vaginal progesterone at this time. - No further TVU-CL. - PTL precautions reviewed. Thank you for allowing us to participate in the care of this patient. us Key Coulter MD US ORDERABLES Final Result * US OB DETAIL SINGLE GEST (08/21/2024 4:23 PM DATA DELIVERABLES MANAGER) Anatomical Region Laterality Modality Pelvis Ultrasound 08/21/2024 3:38 PM DATA DELIVERABLES MANAGER Narrative 08/21/2024 4:49 PM DATA DELIVERABLES MANAGER STL COMP ----- Pat. Name: JORDI STOUT Study Date: 08/21/2024 3:38pm Pat. NO: [id number] Referring ??: COSME ??FLORY TRAYLOR Site: [place] [employer]: Madhavi Rodriguez RDMS : 1995 Age: 29 ----- INDICATION ----- Anatomy Survey Exposure to Medications / Drugs, Suspected Damage to Fetus Maternal Obesity (BMI<40) Complicating Anxiety Disorder in Condition Classified Elsewhere Asthma Complicating CODING ----- Diagnoses ? Z3A.21: Weeks of gestation ?O99.512: Diseases of the respiratory system complicating ?O26.892: Other specified related conditions ?O99.212: Obesity complicating ?O35.5XX0: Maternal care for (suspected) damage to fetus by drugs ?Z36.3: Encounter for screening for malformations Procedures ?75026: Ultrasound, uterus, real time with image documentation, and maternal evaluation ?plus detailed anatomic examination, transabdominal approach ?65297: Ultrasound, uterus, real time with image documentation HISTORY ----- OB History ? 1. Para 0 METHOD ----- Transabdominal and transvaginal ultrasound examination ----- Chavez . Number of fetuses: 1 DATING ----- Cycle: regular cycle GA by prior assessment 21 w + 3 d BIANCA by prior assessment: 12/29/2024 Ultrasound examination on: 08/21/2024 GA by U/S based upon: AC, BPD, EFW, Femur, HC GA by U/S 21 w + 4 d BIANCA by U/S: 12/28/2024 Method of dating: Restore dating from previous exam Assigned: based on stated BIANCA, selected on 07/24/2024 Assigned GA 21 w + 3 d Assigned BIANCA: 12/29/2024 BIOMETRY ----- BPD ?50.1 ? mm ? 21w 1d ? 38% ?Hadlock OFD ?69.2 ? mm ? 23w 0d ? 94% ?Liset HC ? 191.3 ?mm ? 21w 3d ? 38% ?Hadlock Cerebellum tr ?24.3 ? mm ? 23w 2d ? 94% ?Medeiros Nuchal fold ?5.5 ?mm AC ? 175.9 ?mm ? 22w 3d ? 77% ?Hadlock Femur ?35.7 ? mm ? 21w 2d ? 36% ?Hadlock Humerus ?33.0 ? mm ? 21w 1d ? 36% ?Liset HC / AC ?1.09 ?13% ? Nicolaides Weight Calculation: EFW ?457 ? g ?21w 5d ?67% ?Hadlock EFW (lb,oz) ?1 lb 0 ?oz EFW by ?Hadlock ([id number]) Head / Face / Neck Biometry: Well Drill Operator ? 4.0 ? mm CM ? 2.6 ? mm ? <1% ?Nicolaides Extremities / Bony Struc Biometry: FL / BPD ?0.71 FL / HC ? 0.19 FL / AC ? 0.20 Tibia ? 31.8 ?mm ? 21w 5d ?64% ?Liset GENERAL EVALUATION ----- Cardiac activity present. FHR 134 bpm. movements: present. Presentation: cephalic Placenta: Placental site: anterior Umbilical cord: Cord vessels: 3 vessel cord. Insertion site: placental insertion: normal Amniotic fluid: Amount of AF: normal amount. MVP 5.1 cm ANATOMY ----- The following structures appear normal: Head / Neck ? Cranium. Lateral ventricles. Choroid plexus. Midline falx. Cavum septi pellucidi. Cerebellum. Cisterna ?magna. ?Nuchal fold. Heart / Thorax ?3-vessel view. 7-kkobqq-pjlkekt view. Situs. Aortic arch view. Ductal arch view. Superior vena cava. ?Inferior vena cava. High short axis view. Cardiac rhythm. ?Diaphragm. Abdomen ? Cord insertion. Stomach. Kidneys. Bladder. Genitals. Spine ? Cervical spine. Thoracic spine. Lumbar spine. Sacral spine. Extremities / ? Arms. Left hand. Legs. Left foot. Skeleton The following structures could not be adequately visualized: Face ?Lips. Profile. Nose. Palate. Orbits. Heart / Thorax ?4-chamber view. RVOT view. LVOT view. Extremities / ? Right hand. Right foot. Skeleton sex: male. MATERNAL STRUCTURES ----- Cervix ?Visualized ?Approach - Transvaginal: Cervical length 15.3 mm Right Ovary ? Normal ?Size 24 mm x 25 mm x 17 mm. Vol 5.2 cm?? Left Ovary ?Normal ?Size 28 mm x 29 mm x 11 mm. Vol 4.6 cm?? GROWTH OVERVIEW ----- Exam date ? GA ?BPD (mm) ? HC (mm) ?AC (mm) ? FL (mm) ?HL (mm) ?EFW (g) 07/24/2024 ?17w 3d ?40.0 ?80% ?142.4 ? 45% ?127.2 ?77% ?23.1 ?26% ?24.0 ?60% ?204 ? 57% 08/21/2024 ?21w 3d ?50.1 ?38% ?191.3 ? 38% ?175.9 ?77% ?35.7 ?36% ?33.0 ?36% ?457 ? 67% COMMENT ----- Patient's name and date of were verified by the supervisor garage before the exam. Anita was present for the transvaginal ultrasound and served as a paving plant operator. IMPRESSION ----- Chavez @ 21w 3d referred for anatomical survey. - The biometry is consistent with dates. - Amniotic fluid indices are within normal limits. - The placenta is anterior with a central cord insertion and no evidence of previa or low-lying placenta. - Visualized anatomy is unremarkable. However some views were limited due to persistent poor position. - Transvaginal ultrasound was performed to evaluate the cervical length. The cervix is short measuring 15.3mm. We discussed the implications of a shortened cervix that was noted on ultrasound, and how it can affect the management of her chavez . We noted that the shortened cervix significantly increases her risk of . We reviewed the medical, and mechanical interventions that have been shown to reduce the risk of including ultrasound-indicated cerclage. We discussed the risks of cerclage including but not limited to: pain, bleeding, infection, damage to adjacent structures such as bladder, risk of rupture of membranes, risk of AROM during the procedure as well as the increased risk of SROM following the procedure, and loss of the . The patient voiced understanding of these precautions and she wishes to proceed with vaginal progesterone at this time. A repeat ultrasound is scheduled in 1 week to evaluate the cervical length. A follow up ultrasound is scheduled in 4 weeks to check growth and to complete the anatomy. Thank you for allowing us to participate in the care of your patient. Procedure Note Key Coulter MD - 08/21/2024 STL COMP ----- Pat. Name:Chantale STOUT Date:08/21/2024 3:38pm Pat. NO: [id number] MD:COSME TRAYLOR CNM Site:[place]ographer:Madhavi Rodriguez RDMS :1995Age:29 ----- INDICATION ----- Anatomy Survey Exposure to Medications / Drugs, Suspected Damage to Fetus Maternal Obesity (BMI<40) Complicating Anxiety Disorder in Condition Classified Elsewhere Asthma Complicating CODING ----- Diagnoses Z3A.21: Weeks of gestation O99.512: Diseases of the respiratory systemcomplicating O26.892: Other specified relatedconditions O99.212: Obesity complicating O35.5XX0: Maternal care for (suspected) damage tofetus by drugs Z36.3: Encounter for screening formalformations Procedures 65138: Ultrasound, uterus, real time withimage documentation, and maternal evaluation plus detailed anatomic examination,transabdominal approach 11340: Ultrasound, uterus, real time withimage documentation HISTORY ----- OB History 1. Para 0 METHOD ----- Transabdominal and transvaginal ultrasound examination ----- Chavez . Number of fetuses: 1 DATING ----- Cycle:regular cycle GA by prior w + 3 d BIANCA by prior assessment:12/29/2024 Ultrasound examination on:08/21/2024 GA by U/S based upon:AC, BPD, EFW, Femur, HC GA by U/S21 w + 4 d BIANCA by U/S:12/28/2024 Method of dating:Restore dating from previous exam Assigned:based on stated BIANCA, selected on 07/24/2024 Assigned GA21 w + 3 d Assigned BIANCA:12/29/2024 BIOMETRY ----- BPD 50.1 mm 21w 1d38% Hadlock OFD 69.2 mm 23w 0d94% Liset HC 191.3 mm 21w 3d38% Hadlock Cerebellum tr 24.3 mm 23w 2d94% Medeiros Nuchal fold 5.5 mm AC 175.9 mm 22w 3d77% Hadlock Femur 35.7 mm 21w 2d36% Hadlock Humerus 33.0 mm 21w 1d36% Liset HC / AC 1.09 13%Nicolaides Weight Calculation: EFW 457 g 21w 5d 67%Hadlock EFW (lb,oz) 1 lb 0 oz EFW by Hadlock ([id number]) Head / Face / Neck Biometry: Well Drill Operator 4.0 mm CM 2.6 mm <1%Nicolaides Extremities / Bony Struc Biometry: FL / BPD 0.71 FL / HC 0.19 FL / AC 0.20 Tibia 31.8 mm 21w 5d 64%Liset GENERAL EVALUATION ----- Cardiac activity present. FHR 134 bpm. movements: present.Presentation: cephalic Placenta: Placental site: anterior Umbilical cord: Cord vessels: 3 vessel cord. Insertion site: placentalinsertion: normal Amniotic fluid: Amount of AF: normal amount. MVP 5.1 cm ANATOMY ----- The following structures appear normal: Head / Neck Cranium. Lateral ventricles. Choroid plexus.Midline falx. Cavum septi pellucidi. Cerebellum. Cisterna magna. Nuchal fold. Heart / Thorax 3-vessel view. 9-mfzngj-wsvawwe view. Situs.Aortic arch view. Ductal arch view. Superior vena cava. Inferior vena cava. High short axis view. Cardiacrhythm. Diaphragm. Abdomen Cord insertion. Stomach. Kidneys. Bladder.Genitals. Spine Cervical spine. Thoracic spine. Lumbar spine.Sacral spine. Extremities / Arms. Left hand. Legs. Left foot. Skeleton The following structures could not be adequately visualized: Face Lips. Profile. Nose. Palate. Orbits. Heart / Thorax 4-chamber view. RVOT view. LVOT view. Extremities / Right hand. Right foot. Skeleton sex: male. MATERNAL STRUCTURES ----- Cervix Visualized Approach - Transvaginal: Cervical length 15.3 mm Right Ovary Normal Size 24 mm x 25 mm x 17 mm. Vol 5.2 cm?? Left Ovary Normal Size 28 mm x 29 mm x 11 mm. Vol 4.6 cm?? GROWTH OVERVIEW ----- Exam date GA BPD (mm) HC (mm) AC (mm) FL(mm) HL (mm) EFW (g) 07/24/2024 17w 3d 40.0 80% 142.4 45% 127.2 77%23.1 26% 24.0 60% 204 57% 08/21/2024 21w 3d 50.1 38% 191.3 38% 175.9 77%35.7 36% 33.0 36% 457 67% COMMENT ----- Patient's name and date of were verified by the supervisor garage beforethe exam. Anita was present for the transvaginal ultrasound and served as achaperone. IMPRESSION ----- Chavez @ 21w 3d referred for anatomical survey. - The biometry is consistent with dates. - Amniotic fluid indices are within normal limits. - The placenta is anterior with a central cord insertion and no evidenceof previa or low-lying placenta. - Visualized anatomy is unremarkable. However some views werelimited due to persistent poor position. - Transvaginal ultrasound was performed to evaluate the cervical length.The cervix is short measuring 15.3mm. We discussed the implications of a shortened cervix that was noted onultrasound, and how it can affect the management of her chavez . We noted that the shortened cervix significantlyincreases her risk of . We reviewed the medical, and mechanical interventions that have been shown to reduce therisk of including ultrasound-indicated cerclage. We discussed the risks of cerclage including but not limited to:pain, bleeding, infection, damage to adjacent structures such as bladder, risk of rupture of membranes, risk of AROMduring the procedure as well as the increased risk of SROM following the procedure, and loss of the . The patient voicedunderstanding of these precautions and she wishes to proceed with vaginal progesterone at this time. A repeat ultrasound is scheduled in 1 week to evaluate the cervicallength. A follow up ultrasound is scheduled in 4 weeks to check growth andto complete the anatomy. Thank you for allowing us to participate in the care of your patient. us Garrett Loja MD US ORDERABLES Final Re sult * US OB 14+ WKS SINGLE GEST (07/24/2024 2:40 PM DATA DELIVERABLES MANAGER) Anatomical Region Laterality Modality Pelvis Ultrasound 07/24/2024 2:05 PM DATA DELIVERABLES MANAGER Narrative 07/24/2024 2:50 PM DATA DELIVERABLES MANAGER STL BASIC ----- Pat. Name: JORDI STOUT Study Date: 07/24/2024 2:05pm Pat. NO: [id number] Referring ??: COSME ??FLORY TRAYLOR Site: [place] [employer]: Beatris Sanders RDMS : 1995 Age: 29 ----- INDICATION ----- Anatomy Survey ? LR nipt Exposure to Medications / Drugs, Suspected Damage ?clonazepam to Fetus Maternal Obesity (BMI<40) Complicating Anxiety Disorder in Condition Classified Elsewhere Asthma Complicating CODING ----- Diagnoses ? Z3A.17: Weeks of gestation ?O99.512: Diseases of the respiratory system complicating ?O26.892: Other specified related conditions ?O99.212: Obesity complicating ?O35.5XX0: Maternal care for (suspected) damage to fetus by drugs ?Z36.3: Encounter for screening for malformations Procedures ?17605: Ultrasound, uterus, real time with image documentation, and maternal evaluation, ?after first trimester (> or = 14 weeks 0 days), transabdominal approach; single or first gestation HISTORY ----- OB History ? 1. Para 0 MATERNAL ASSESSMENT ----- Physical Exam ? Weight 92 kg. BMI 34.85 kg/m?? METHOD ----- Transabdominal ultrasound examination ----- Chavez . Number of fetuses: 1 DATING ----- Cycle: regular cycle Method of dating: based on stated BIANCA GA by prior assessment 17 w + 3 d BIANCA by prior assessment: 12/29/2024 Ultrasound examination on: 07/24/2024 GA by U/S based upon: AC, BPD, EFW, Femur, HC GA by U/S 17 w + 5 d BIANCA by U/S: 12/27/2024 Assigned: based on stated BIANCA, selected on 07/24/2024 Assigned GA 17 w + 3 d Assigned BIANCA: 12/29/2024 BIOMETRY ----- BPD ?40.0 ? mm ? 18w 1d ? 80% ?Hadlock OFD ?48.1 ? mm ? 18w 0d ? 71% ?Liset HC ? 142.4 ?mm ? 17w 4d ? 45% ?Hadlock Cerebellum tr ?18.4 ? mm ? 18w 5d ? 89% ?Medeiros Nuchal fold ?3.6 ?mm AC ? 127.2 ?mm ? 18w 2d ? 77% ?Hadlock Femur ?23.1 ? mm ? 17w 0d ? 26% ?Hadlock Humerus ?24.0 ? mm ? 17w 3d ? 60% ?Liset HC / AC ?1.12 ?10% ? Nicolaides Weight Calculation: EFW ?204 ? g ?17w 4d ?57% ?Hadlock EFW (lb,oz) ?0 lb 7 ?oz EFW by ?Hadlock ([id number]) Head / Face / Neck Biometry: CM ? 2.7 ?mm ? 6% ?Nicolaides Extremities / Bony Struc Biometry: FL / BPD ? 0.58 ?5% ?Hadlock FL / HC ?0.16 ?12% ?Hadlock FL / AC ?0.18 ?4% ?Hadlock GENERAL EVALUATION ----- Cardiac activity present. FHR 145 bpm. movements: visualized. Presentation: transverse Placenta: Placental site: anterior Umbilical cord: Cord vessels: 3 vessel cord. Insertion site: placental insertion: normal Amniotic fluid: Amount of AF: normal amount. MVP 4.0 cm ANATOMY ----- The following structures appear normal: Head / Neck ? Cranium. Choroid plexus. Midline falx. Cerebellum. Cisterna magna. ?Nuchal fold. Face ?Profile. Heart / Thorax ?4-chamber view. RVOT view. LVOT view. 3-vessel view. 9-lqigrx-lmdajfn view. Situs. Aortic arch view. ?Ductal arch view. Superior vena cava. Inferior vena cava. High short axis view. Cardiac rhythm. Abdomen ? Abdominal wall. Stomach. Kidneys. Bladder. Spine ? Lumbar spine. Sacral spine. Extremities / ? Arms. Right hand. Left hand. Legs. Right foot. Left foot. Skeleton The following structures could not be adequately visualized: Head / Neck ? Right lateral ventricle. Left lateral ventricle. Cavum septi pellucidi. Face ?Lips. Nose. Palate. Orbits. Heart / Thorax ?Diaphragm. Spine ? Cervical spine. Thoracic spine. MATERNAL STRUCTURES ----- Cervix ?Visualized ?Approach - Transabdominal: Cervical length 36.0 mm Right Ovary ? Normal ?Size 32 mm x 32 mm x 23 mm. Vol 12.5 cm?? Left Ovary ?Normal ?Size 27 mm x 21 mm x 11 mm. Vol 3.2 cm?? GROWTH OVERVIEW ----- Exam date ? GA ?BPD (mm) ? HC (mm) ?AC (mm) ? FL (mm) ?HL (mm) ?EFW (g) 07/24/2024 ?17w 3d ?40.0 ?80% ?142.4 ? 45% ?127.2 ?77% ?23.1 ?26% ?24.0 ?60% ?204 ? 57% COMMENT ----- Patient's name and date of were confirmed by the supervisor garage prior to the exam IMPRESSION ----- Viable at 17 weeks gestation. An early basic ultrasound was ordered due to exposure to clonazepam during . Patient had low risk NIPT The biometry is consistent with the established gestational age No major structural malformations were clearly identified Some images of the face suggest the possibility of a small cleft lip; this is not replicated in all images suggesting the possibility of technical artifact Anatomic survey could not be completed due to early gestational age Amniotic fluid volume is normal Anterior placenta with normal placental cord insertion appreciated; placenta is not low-lying Normal cervical length based upon transabdominal ultrasound assessment Ultrasound cannot identify all structural malformations A follow-up ultrasound was scheduled in 4 weeks to complete anatomic survey Procedure Note Garrett Loja MD - 07/24/2024 STL BASIC ----- Pat. Name:Chantale STOUT Date:07/24/2024 2:05pm Pat. NO: [id number] MD:COSME TRAYLOR CNM [facility]Beatris Sanders RDMS :1995Age:29 ----- INDICATION ----- Anatomy Survey LR nipt Exposure to Medications / Drugs, Suspected Damage clonazepam to Fetus Maternal Obesity (BMI<40) Complicating Anxiety Disorder in Condition Classified Elsewhere Asthma Complicating CODING ----- Diagnoses Z3A.17: Weeks of gestation O99.512: Diseases of the respiratory systemcomplicating O26.892: Other specified relatedconditions O99.212: Obesity complicating O35.5XX0: Maternal care for (suspected) damage tofetus by drugs Z36.3: Encounter for screening formalformations Procedures 62621: Ultrasound, uterus, real time withimage documentation, and maternal evaluation, after first trimester (> or = 14 weeks 0 days),transabdominal approach; single or first gestation HISTORY ----- OB History 1. Para 0 MATERNAL ASSESSMENT ----- Physical Exam Weight 92 kg. BMI 34.85 kg/m?? METHOD ----- Transabdominal ultrasound examination ----- Chavez . Number of fetuses: 1 DATING ----- Cycle:regular cycle Method of dating:based on stated BIANCA GA by prior [id number] w + 3 d BIANCA by prior assessment:12/29/2024 Ultrasound examination on:07/24/2024 GA by U/S based upon:AC, BPD, EFW, Femur, HC GA by U/S17 w + 5 d BIANCA by U/S:12/27/2024 Assigned:based on stated BIANCA, selected on 07/24/2024 Assigned GA17 w + 3 d Assigned BIANCA:12/29/2024 BIOMETRY ----- BPD 40.0 mm 18w 1d80% Hadlock OFD 48.1 mm 18w 0d71% Liset HC 142.4 mm 17w 4d45% Hadlock Cerebellum tr 18.4 mm 18w 5d89% Medeiros Nuchal fold 3.6 mm AC 127.2 mm 18w 2d77% Hadlock Femur 23.1 mm 17w 0d26% Hadlock Humerus 24.0 mm 17w 3d60% Liset HC / AC 1.12 10%Nicolaides Weight Calculation: EFW 204 g 17w 4d 57%Hadlock EFW (lb,oz) 0 lb 7 oz EFW by Hadlock ([id number]) Head / Face / Neck Biometry: CM 2.7 mm 6%Nicolaides Extremities / Bony Struc Biometry: FL / BPD 0.58 5%Hadlock FL / HC 0.16 12%Hadlock FL / AC 0.18 4%Hadlock GENERAL EVALUATION ----- Cardiac activity present. FHR 145 bpm. movements: visualized.Presentation: transverse Placenta: Placental site: anterior Umbilical cord: Cord vessels: 3 vessel cord. Insertion site: placentalinsertion: normal Amniotic fluid: Amount of AF: normal amount. MVP 4.0 cm ANATOMY ----- The following structures appear normal: Head / Neck Cranium. Choroid plexus. Midline falx. Cerebellum.Cisterna magna. Nuchal fold. Face Profile. Heart / Thorax 4-chamber view. RVOT view. LVOT view. 3-vesselview. 7-judjdk-jximhuo view. Situs. Aortic arch view. Ductal arch view. Superior vena cava. Inferiorvena cava. High short axis view. Cardiac rhythm. Abdomen Abdominal wall. Stomach. Kidneys. Bladder. Spine Lumbar spine. Sacral spine. Extremities / Arms. Right hand. Left hand. Legs. Right foot.Left foot. Skeleton The following structures could not be adequately visualized: Head / Neck Right lateral ventricle. Left lateral ventricle.Cavum septi pellucidi. Face Lips. Nose. Palate. Orbits. Heart / Thorax Diaphragm. Spine Cervical spine. Thoracic spine. MATERNAL STRUCTURES ----- Cervix Visualized Approach - Transabdominal: Cervical length 36.0mm Right Ovary Normal Size 32 mm x 32 mm x 23 mm. Vol 12.5 cm?? Left Ovary Normal Size 27 mm x 21 mm x 11 mm. Vol 3.2 cm?? GROWTH OVERVIEW ----- Exam date GA BPD (mm) HC (mm) AC (mm) FL(mm) HL (mm) EFW (g) 07/24/2024 17w 3d 40.0 80% 142.4 45% 127.2 77%23.1 26% 24.0 60% 204 57% COMMENT ----- Patient's name and date of were confirmed by the supervisor garage priorto the exam IMPRESSION ----- Viable at 17 weeks gestation. An early basic ultrasound wasordered due to exposure to clonazepam during . Patient had low risk NIPT The biometry is consistent with the established gestational age No major structural malformations were clearly identified Some images of the face suggest the possibility of a small cleft lip; thisis not replicated in all images suggesting the possibility of technical artifact Anatomic survey could not be completed due to early gestational age Amniotic fluid volume is normal Anterior placenta with normal placental cord insertion appreciated;placenta is not low-lying Normal cervical length based upon transabdominal ultrasound assessment Ultrasound cannot identify all structural malformations A follow-up ultrasound was scheduled in 4 weeks to complete anatomicsurvey us Cosme Traylor NP US ORDERABLES Final Result from Last 3 Months Insurance [facility] BLUE ACCESS/TRUE BLUE PPO RX [employer] Commercial Advance Directives For more information, please contact: [phone] * Full Code (Latest Code Status on File) Date Activated Date Inactivated Comments 08/25/2024 3:08 PM 08/25/2024 7:38 PM
--- OUTSIDE RECORDS SUMMARY | 2024-08-31 11:34 | XMS_ITS | Referral Summary ---
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 Gender Identity Not on file Sexual Orientation [...] 05/29/2024 9:28 AM CDT Plan of Treatment Not on file Insurance [facility] CHOICE PLUS Member Subscriber Plan / Payer (Ef fective 2019-Present) Name:Briseida Stout Relation to Subscriber:Child Name:ELANA SALAZAR Date of :1962 (Home) Address: [address] [place] [address], [address] [address] Payer ID:[id number] (NAIC) Type:[facility] HMO/PPO Address: [facility] [address] [place] [address] [facility] Care Teams Sales Agent Business Services Relationship Specialty Start Date End Date Yamel Major NP PCP - General 02/21/20
== END 2024-08-25 13:28 | disposition short-term general hospital (02) ==
PROVIDERS: Admitting Provider Obstetrics & Gynecology; Referring Provider Advanced Practice Midwife; Visit Provider Obstetrics & Gynecology
DX: O46.92 Antepartum hemorrhage, unspecified, second trimester (principal); Z3A.22 22 weeks gestation of pregnancy
CPT/HCPCS: 99199

== ENCOUNTER 2024-11-21 15:00 | Outpatient (RCR) | payer BC, SELFPAY | END 2025-01-29 13:53 | disposition home or self-care (01) | LOC: ANHDMC 15:00 | PROVIDERS: Visit Provider Obstetrics & Gynecology | DX: O24.410 Gestational diabetes mellitus in pregnancy, diet controlled (principal); Z71.3 Dietary counseling and surveillance; Z3A.00 Weeks of gestation of pregnancy not specified | CPT/HCPCS: 97802; 97803 ==

== ENCOUNTER 2024-11-23 07:30 | Observation (INO) | payer BC, SELFPAY ==
--- NOTE | ~2024-11-23 | US_ITS ---
EXAMINATION: US OB BPP wo non-stress DATE: 11/23/2024 9:26 CDT INDICATION: Vaginal bleeding, placental check TECHNIQUE: Real-time transabdominal obstetric ultrasound. FINDINGS: There is a single intrauterine gestation in vertex presentation. The placenta is anterior without pl acenta previa. Amniotic fluid index measures 13.6 cm. cardiac activity and movement is noted with a heart rate of 131 beats per minute. Biophysical profile: breathin of 2 movement: 2 of 2 tone: 2 of 2 Amniotic fluid pocket: 2 of 2 Total score: 8 of 8 IMPRESSION: 1. Single intrauterine gestation in vertex presentation. 2: Total biophysical profile score of 8 out of 8. Reviewed, dictated and finalized at location A.
--- NOTE | 2024-11-23 07:30 | OBADM ---
This patient, Briseida Stout, admitted to the OB room Labor/Delivery/Recovery 105 for observation. Patient/family oriented to hospital policies and general routines including ID bracelet, bed and alarms, visiting hours, pain management, procedures, bathroom and other care routines, personal items, smoking policy, room service/diet, and visiting hours. Patient/Family are encouraged to report perceived risks to care and to ask questions if they do not understand what they are told or what they should do.
--- OUTSIDE RECORDS SUMMARY | 2024-11-23 07:37 | XMS_ITS | Clinical Summary ---
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 Gender Identity Not on file Sexual Orientation Not on file Obstetrics History Last Filed Vital Signs Vital Sign Reading Time Taken Comments Blood Pressure 121/81 05/29/2024 9:28 AM CDT Pulse 96 05/29/2024 9:28 AM CDT Temperature 36.6 C (97.9 F) 05/29/2024 9:28 AM CDT Respiratory Rate 24 05/29/2024 9:28 AM CDT [...] Depression Screening 1997 Hepatitis C Screening 1997 DTaP/Tdap/Td Vaccine (1 - Tdap) 2008 Varicella Vaccines (1 of 2 - 13+ 2-dose series) 2010 Hepatitis B Screening 2015 Regular Well Visit/Exam 18-64 2015 Pneumococcal vaccine <65 (1 of 2 - PCV) 2016 Influenza Vaccine (#1) 2024 , 05/14/2019, 05/14/2019, Additional history exists HPV Vaccines Aged Out No longer eligi ble based on patient's age to complete this topic Insurance [facility] CHOICE PLUS Care Teams Toggler Relationship Specialty Start Date End Date Yamel Major NP PCP - General 02/21/20
--- OUTSIDE RECORDS SUMMARY | 2024-11-23 07:37 | XMS_ITS | Clinical Summary ---
Author Organization [facility] Address [address] [place] [address] Phone Care Team Providers Care Sonography Technologist Name Role Phone Unavailable Primary Care Provider Unavailabl e Medications progesterone 200 mg vaginal suppository compound Insert 1 Suppository vaginally daily each evening at bedtime until 36 weeks and 6 days gestation. 30 Suppository 4 11/20/2024 2:00 PM CDT 08/22/19 25 Active prescription delivery fee delivery fee 1 Units 11/20/2024 2:00 PM CDT 11/21/19 25 Active Active Problems Problem Noted Date Diagnosed Date Vaginal spotting 08/25/2024 Estimated Date of Delivery Comme nts Yes 12/29/2024 Based on Other B asis Encounters Date Type Department Care Team Description 11/07/2024 External Device Data STL ABSTRACTION Provider, Abstract 10/14/2024 External Device Data STL ABSTRACTION Provider, Abstract 10/14/2024 External Device Data STL ABSTRACTION Provider, Abstract 10/11/2024 External Device Data STL ABSTRACTION Provider, Abstract 09/27/2024 External Device Data STL ABSTRACTION Provider, Abstract 09/22/2024 Telephone [facility] Maternal and Medicine - Medical [place] [address] [place] [id number] Keanu Pyle MD Needs Appointment 09/18/2024 3:30 PM [facility] - 09/18/2024 11:59 PM [facility] Hospital Encounter [facility] [place] [address] [place] [address] Key Coulter MD Discharge Disposition: Home or Self Care 09/06/2024 External Device Data STL ABSTRACTION Provider, Abstract 08/31/2024 External Device Data STL ABSTRACTION Provider, Abstract 08/28/2024 8:10 AM [facility] - 08/28/2024 11:59 PM [facility] Hospital Encounter [facility] Maternal and Ground Floor [address] [place] [address] Key Coulter MD Discharge Disposition: Home or Self Care 08/25/2024 3:15 PM [facility] - 08/25/2024 11:59 PM [facility] Hospital Encounter [facility] Maternal and Ground Floor [address] [place] [address] Discharge Disposition: Home or Self Care 08/25/2024 3:00 PM [facility] - 08/25/2024 5:00 PM [facility] Hospital Encounter [facility] OB Triage [address] [facility] [place] [address] Dov Adkins MD Vaginal spotting Discharge Disposition: Home or Self Care from Last 3 Months Social History Tobacco [...] Comments Blood Pressure 129/62 08/25/2024 3:00 PM [facility] Pulse 81 08/25/2024 3:00 PM [facility] Temperature 36.7 C (98.1 F) 08/25/2024 3:00 PM [facility] Respiratory Rate 18 08/25/2024 3:00 PM [facility] Oxygen Saturation 100% 08/25/2024 3:00 PM [facility] Inhaled Oxygen Concentration - - Weight 95.7 kg (211 lb) 08/25/2024 3:08 PM [facility] Height - - Body Mass Index - - Plan of Treatment Upcoming Encounters Date Type Department Care Team (Late st Contact Info) Description 12/29/2024 Hospital Encounter [facility] OB Triage [address] [place] [address] Dov Adkins MD [address] [address] Health Maintenance Due Date Last Done Comments DTAP/TDAP/TD VACCINES (1 - Tdap) 2016 HEPATITIS B VACCINES (1 of 3 - 19+ 3-dose series) 2016 CERVICAL CANCER SCREENING 2018 HPV/Cotest (21-29) 2018 PAP SMEAR 2018 INFLUENZA VACCINE (#1) 2024 Preventative Visit- Commercial 08/09/2024 HPV VACCINES Aged Out No longer eligi ble based on patient's age to complete this topic RSV VACCINE (60+ or ) (No Doses Required) Completed Procedures Procedure Name Priority Date/Time Associated Diagnosis Comments US OB FOLLOW UP PER FETUS Routine 09/18/2024 4:16 PM [facility] drug exposure (CMS/HCC) Obesity (BMI 30-39.9) Anxiety during Short cervix affecting US OB LTD 1 OR MORE FETUS + TV Routine 08/28/2024 8:46 AM [facility] drug exposure (CMS/HCC) Obesity (BMI 30-39.9) Anxiety during Short cervix affecting US OB LTD 1 OR MORE FETUS + TV Routine 08/25/2024 4:25 PM [facility] from Last 3 Months Results * US OB FOLLOW UP PER FETUS (09/18/2024 4:16 PM [facility]) Anatomical Region Laterality Modality Pelvis Ultrasound 09/18/2024 3:39 PM [facility] Narrative 09/18/2024 4:15 PM [facility] STL FOLLOW UP ----- Pat. Name: JORDI STOUT Study Date: 09/18/2024 3:39pm Pat. NO: [id number] Referring MD: COSME CASTANEDA CNM Site: [facility] Lab Technician: Stacy Vargas RDMS : 1995 Age: 29 ----- INDICATION ----- Cervical Shortening, Confirmed Exposure to Medications / Drugs, Suspected Damage to Fetus Asthma Complicating Maternal Obesity (BMI<40) Complicating Anxiety, Maternal CODING ----- Diagnoses Z3A.25: Weeks of gestation O99.342: Other mental disorders complicating O99.212: Obesity complicating O99.512: Diseases of the respiratory system complicating O35.5XX0: Maternal care for (suspected) damage to fetus by drugs O26.872: Cervical shortening Procedures 79686: Ultrasound, uterus, real time with image documentation, follow up, transabdominal approach per fetus HISTORY ----- OB History 1. Para 0 MATERNAL ASSESSMENT ----- Physical Exam Initial weight 93 kg, 204 lb. Initial BMI 35.02 kg/m METHOD ----- Transabdominal ultrasound examination ----- Barboza . Number of fetuses: 1 DATING ----- Cycle: regular cycle GA by prior assessment 25 w + 3 d BIANCA by prior assessment: 12/29/2024 Ultrasound examination on: 09/18/2024 GA by U/S based upon: AC, BPD, EFW, Femur, HC GA by U/S 26 w + 0 d BIANCA by U/S: 12/25/2024 Method of dating: Restore dating from previous exam Assigned: based on stated BIANCA, selected on 07/24/2024 Assigned GA 25 w + 3 d Assigned BIANCA: 12/29/2024 BIOMETRY ----- BPD 64.0 mm 25w 6d 58% Hadlock OFD 85.2 mm 27w 4d 96% Liset HC 241.2 mm 26w 1d 55% Hadlock AC 228.7 mm 27w 2d 90% Hadlock Femur 44.7 mm 24w 5d 18% Hadlock HC / AC 1.05 12% Nicolaides Weight Calculation: EFW 904 g 26w 0d 72% Hadlock EFW (lb,oz) 2 lb 0 oz EFW by Hadlock ([id number]) Head / Face / Neck Biometry: Associate Art Director 5.2 mm Outer IOD 38.7 mm 24w 4d 9% Liset Extremities / Bony Struc Biometry: FL / BPD 0.70 FL / HC 0.19 FL / AC 0.20 GENERAL EVALUATION ----- Cardiac activity present. FHR 128 bpm. movements: present. Presentation: transverse HMR Placenta: Placental site: anterior Umbilical cord: Cord vessels: 3 vessel cord. Insertion site: placental insertion: normal Amniotic fluid: Amount of AF: normal amount. MVP 6.3 cm. TANIA 18.3 cm. Q1 4.2 cm, Q2 6.3 cm, Q3 3.6 cm, Q4 4.3 cm ANATOMY ----- The following structures appear normal: Head / Neck Cranium. Lateral ventricles. Choroid plexus. Midline falx. Cavum septi pellucidi. Cerebellum. Cisterna magna. Heart / Thorax 4-chamber view. RVOT view. LVOT view. Diaphragm. Abdomen Stomach. Kidneys. Bladder. Extremities / Hands. Skeleton The following structures could not be adequately visualized: Face Profile. sex: male. GROWTH OVERVIEW ----- Exam date GA BPD (mm) HC (mm) AC (mm) FL (mm) HL (mm) EFW (g) 07/24/2024 17w 3d 40.0 80% 142.4 45% 127.2 77% 23.1 26% 24.0 60% 204 57% 08/21/2024 21w 3d 50.1 38% 191.3 38% 175.9 77% 35.7 36% 33.0 36% 457 67% 09/18/2024 25w 3d 64.0 58% 241.2 55% 228.7 90% 44.7 18% 904 72% COMMENT ----- Patient's name and date of were verified by the casual shoe inspector prior to the exam IMPRESSION ----- 1. Single living fetus with a gestational age of 25w 3d, based on the reported clinical dates. 2. Current growth parameters are consistent with the stated EDC. The size is appropriate for gestational age at 72% percentile (904 g). 3. Unremarkable limited anatomy noted. A detailed anatomy cannot be performed secondary to advanced gestational age. However, there are no gross structural abnormalities noted. The anatomic survey was completed today. 4. The amniotic fluid is normal for gestational age (MVP:6.3 cm , TANIA:18.3 cm ). 5. anterior placenta. No previa/not low-lying. 6. transverse HMR presentation. Recommendations: 1. Interval growth and anatomy at 32-36 weeks Procedure Note Keanu Pyle MD - 09/18/2024 STL FOLLOW UP ----- Pat. Name:Chantale STOUT Date:09/18/2024 3:39pm Pat. NO: [id number] MD:COSME CASTANEDA CNM [facility]:Stacy Vargas RDMS :1995Age:29 ----- INDICATION ----- Cervical Shortening, Confirmed Exposure to Medications / Drugs, Suspected Damage to Fetus Asthma Complicating Maternal Obesity (BMI<40) Complicating Anxiety, Maternal CODING ----- Diagnoses Z3A.25: Weeks of gestation O99.342: Other mental disorders complicatingpregnancy O99.212: Obesity complicating O99.512: Diseases of the respiratory systemcomplicating O35.5XX0: Maternal care for (suspected) damage tofetus by drugs O26.872: Cervical shortening Procedures 13863: Ultrasound, uterus, real time withimage documentation, follow up, transabdominal approach per fetus HISTORY ----- OB History 1. Para 0 MATERNAL ASSESSMENT ----- Physical Exam Initial weight 93 kg, 204 lb. Initial BMI 35.02kg/m METHOD ----- Transabdominal ultrasound examination ----- Barboza . Number of fetuses: 1 DATING ----- Cycle:regular cycle GA by prior [id number] w + 3 d BIANCA by prior assessment:12/29/2024 Ultrasound examination on:09/18/2024 GA by U/S based upon:AC, BPD, EFW, Femur, HC GA by U/S26 w + 0 d BIANCA by U/S:12/25/2024 Method of dating:Restore dating from previous exam Assigned:based on stated BIANCA, selected on 07/24/2024 Assigned GA25 w + 3 d Assigned BIANCA:12/29/2024 BIOMETRY ----- BPD 64.0 mm 25w 6d 58%Hadlock OFD 85.2 mm 27w 4d 96%Liset HC 241.2 mm 26w 1d 55%Hadlock AC 228.7 mm 27w 2d 90%Hadlock Femur 44.7 mm 24w 5d 18%Hadlock HC / AC 1.05 12%Nicolaides Weight Calculation: EFW 904 g 26w 0d 72%Hadlock EFW (lb,oz) 2 lb 0 oz EFW by Hadlock ([id number]) Head / Face / Neck Biometry: Associate Art Director 5.2mm Outer IOD 38.7 mm 24w 4d 9%Liset Extremities / Bony Struc Biometry: FL / BPD 0.70 FL / HC 0.19 FL / AC 0.20 GENERAL EVALUATION ----- Cardiac activity present. FHR 128 bpm. movements: present.Presentation: transverse HMR Placenta: Placental site: anterior Umbilical cord: Cord vessels: 3 vessel cord. Insertion site: placentalinsertion: normal Amniotic fluid: Amount of AF: normal amount. MVP 6.3 cm. TANIA 18.3 cm. Q14.2 cm, Q2 6.3 cm, Q3 3.6 cm, Q4 4.3 cm ANATOMY ----- The following structures appear normal: Head / Neck Cranium. Lateral ventricles. Choroid plexus.Midline falx. Cavum septi pellucidi. Cerebellum. Cisterna magna. Heart / Thorax 4-chamber view. RVOT view. LVOT view. Diaphragm. Abdomen Stomach. Kidneys. Bladder. Extremities / Hands. Skeleton The following structures could not be adequately visualized: Face Profile. sex: male. GROWTH OVERVIEW ----- Exam date GA BPD (mm) HC (mm) AC (mm) FL(mm) HL (mm) EFW (g) 07/24/2024 17w 3d 40.0 80% 142.4 45% 127.2 77%23.1 26% 24.0 60% 204 57% 08/21/2024 21w 3d 50.1 38% 191.3 38% 175.9 77%35.7 36% 33.0 36% 457 67% 09/18/2024 25w 3d 64.0 58% 241.2 55% 228.7 90%44.7 18% 904 72% COMMENT ----- Patient's name and date of were verified by the casual shoe inspector prior tothe exam IMPRESSION ----- 1. Single living fetus with a gestational age of 25w 3d, based on thereported clinical dates. 2. Current growth parameters are consistent with the stated EDC. The fetalsize is appropriate for gestational age at 72% percentile (904 g). 3. Unremarkable limited anatomy noted. A detailed anatomycannot be performed secondary to advanced gestational age. However, there are no gross structural abnormalities noted. Theanatomic survey was completed today. 4. The amniotic fluid is normal for gestational age (MVP:6.3 cm , TANIA:18.3cm ). 5. anterior placenta. No previa/not low-lying. 6. transverse HMR presentation. Recommendations: 1. Interval growth and anatomy at 32-36 weeks us Key Coulter MD US ORDERABLES Final Result * US OB LTD 1 OR MORE FETUS + TV (08/28/2024 8:46 AM [facility]) Only the most recent of2 resultswithin the time period is included. Anatomical Region Laterality Modality Pelvis Ultrasound 08/28/2024 8:23 AM [facility] Narrative 08/28/2024 8:55 AM [facility] CLAM DRED[facility] STL LIMITED ----- Pat. Name: JORDI STOUT Study Date: 08/28/2024 8:23am Pat. NO: [id number] Referring MD: COSME CASTANEDA CNM Site: [facility] Lab Technician: Sanna Rodriguez RDMS : 1995 Age: 29 ----- INDICATION ----- Cervical Shortening, Confirmed Exposure to Medications / Drugs, Suspected Damage clonazepam to Fetus Asthma Complicating Maternal Obesity (BMI<40) Complicating Anxiety, Maternal CODING ----- Diagnoses Z3A.22: Weeks of gestation O99.342: Other mental disorders complicating O99.212: Obesity complicating O99.512: Diseases of the respiratory system complicating O35.5XX0: Maternal care for (suspected) damage to fetus by drugs O26.872: Cervical shortening Procedures 50896: Ultrasound, uterus, real time with image documentation, limited one or more fetuses 74532: Ultrasound, uterus, real time with image documentation HISTORY ----- OB History 1. Para 0 MATERNAL ASSESSMENT ----- Physical Exam Weight 96 kg. Initial weight 93 kg, 204 lb. BMI 36.22 kg/m . Initial BMI 35.02 kg/m . Weight gain 3 kg, 7 lb METHOD ----- Transabdominal and transvaginal ultrasound examination ----- Barboza . Number of fetuses: 1 DATING ----- [...] GA BPD (mm) HC (mm) AC (mm) FL (mm) HL (mm) EFW (g) 07/24/2024 17w 3d 40.0 80% 142.4 45% 127.2 77% 23.1 26% 24.0 60% 204 57% 08/21/2024 21w 3d 50.1 38% 191.3 38% 175.9 77% 35.7 36% 33.0 36% 457 67% COMMENT ----- Patient's name and date of were verified by the casual shoe inspector prior to the exam. Cha Mariscal was present for the transvaginal ultrasound and served as a waitangi tribunal member. IMPRESSION ----- 1. Single living fetus with [...] Pat. Name:Chantale STOUT Date:08/28/2024 8:23am Pat. NO: [id number] MD:COSME CASTANEDA [facility]M [facility] RDMS :1995Age:29 ----- INDICATION ----- Cervical Shortening, Confirmed Exposure to Medications / Drugs, Suspected Damage clonazepam to Fetus Asthma Complicating Maternal Obesity (BMI<40) Complicating Anxiety, Maternal CODING ----- Diagnoses Z3A.22: Weeks of gestation O99.342: Other mental disorders complicatingpregnancy O99.212: Obesity complicating O99.512: Diseases of the respiratory systemcomplicating O35.5XX0: Maternal care for (suspected) damage tofetus by drugs O26.872: Cervical shortening Procedures 89204: Ultrasound, uterus, real time withimage documentation, limited one or more fetuses 82914: Ultrasound, uterus, real time withimage documentation HISTORY ----- OB History 1. Para 0 MATERNAL ASSESSMENT ----- Physical Exam Weight 96 kg. Initial weight 93 kg, 204 lb. BMI36.22 kg/m . Initial BMI 35.02 kg/m . Weight gain 3 kg, 7 lb METHOD ----- Transabdominal and transvaginal ultrasound examination ----- Barboza . Number of fetuses: 1 DATING ----- Cycle:regular cycle GA by prior [id number] w + 3 d BIANCA by prior [...] and date of were verified by the casual shoe inspector prior tothe exam. Cha Mariscal was present for the transvaginal ultrasound and served as a wait[place] tribunal member. IMPRESSION ----- 1. Single living fetus with [...] Key Coulter MD US ORDERABLES Final Result from Last 3 Months Insurance [place] BLUE ACCESS/TRUE BLUE PPO RX [employer] Commercial Advance Directives For more information, please contact: [phone] * Full Code (Latest Code Status on File) Date Activated Date Inactivated Comments 08/25/2024 3:08 PM 08/25/2024 7:38 PM
--- OUTSIDE RECORDS SUMMARY | 2024-11-23 07:37 | XMS_ITS | Referral Summary ---
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
--- OUTSIDE RECORDS SUMMARY | 2024-11-23 07:37 | XMS_ITS | Continuity of Care Document ---
Author Organization [facility] Address [address] [place] [address] Assessment Encounter Date Assessment Date Assessment LastModified by Organization Details LastModified Time 11/22/2024 11/22/2024 Patient is ___weeks . Discussed plan. [email or web address] Not available 11/22/2024 17:10:52 Plan of Treatment Reminders Order Date Submit Date Provider Last Modified By Organization Details Last Modified Time Details Appointments OB ROUTINE 2024 04:15P Coleman Bradley GEETHA TraylorM Not available Not available Not available OB ROUTINE 2024 09:00A Coleman Lopezsandra CNM Not available Not available Not available OB ROUTINE 2024 09:00A Coleman Bradley FLORY Traylor Not available Not available Not available OB ROUTINE 2024 09:00A Coleman Lopezsandra CNColeman Not available Not available Not available Lab [...] cy No observ ation record ed. [email or web address] [place] [address], [place], [address], 06/21/2024 18:22:27 06/21/20 24 06/21/2024 US, obste tric, follo w-up No observ ation record ed. [email or web address] [address], [place], [address], 06/22/2024 17:30:11 07/24/20 24 07/24/2024 US, obste tric, trans abdom inal + trans vagin al No observ ation record ed. [email or web address] [facility] [address] , [place], [address], 08/18/2024 17:50:21 07/24/20 24 07/24/2024 US, obste tric, trans abdom inal + trans vagin al No observ ation record ed. [email or web address] [facility] [address], [place], [address], 07/25/2024 07:35:37 08/15/19 25 08/15/2024 US, obste tric, limit ed No observ ation record ed. [email or web address] [facility] [address], [place], [address], 08/15/2024 16:34:43 08/15/19 25 08/15/2024 US, obste tric, limit ed No observ ation record ed. [email or web address] [address] [address], [place], [address], 08/15/2024 21:49:01 08/21/19 25 08/21/2024 US, obste tric, trans abdom inal + trans vagin al No observ ation record ed. [email or web address] [facility] [address], [place], [address], 08/23/2024 13:00:24 08/25/19 25 08/25/2024 US, obste tric, trans abdom inal + trans vagin al No observ ation record ed. [email or web address] [facility] [address] , [place], [address], 09/13/2024 09:46:05 08/28/19 25 08/28/2024 US, obste tric, trans abdom inal + trans vagin al No observ ation record ed. [email or web address] [facility] [address] [facility] [address], [place], [address], 08/29/2024 07:26:16 08/28/19 25 08/28/2024 US, obste tric, trans abdom inal + trans vagin al No observ ation record ed. [email or web address], [place], [address], 08/29/2024 07:26:40 09/18/19 25 09/18/2024 US, obste tric, trans abdom inal + trans vagin al No observ ation record ed. [email or web address] [facility] [address], [place], [address], 09/20/2024 17:02:42 09/18/19 25 09/18/2024 US, obste tric, trans abdom inal + trans vagin al No observ ation record ed. [email or web address] [address] [facility] [address], [place], [address], 09/19/2024 22:42:50 10/26/19 25 10/25/2024 US, obste tric, follo w-up No observ ation record ed. [email or web address] [place] [address], [place], [address], 10/25/2024 12:55:16 10/26/19 25 10/25/2024 US, obste tric, follo w-up No observ ation record ed. [email or web address] [address], [place], [address], 10/27/2024 13:40:59 11/10/19 25 11/08/2024 non-s tress test No observ ation record ed. [email or web address] [place] [address], [place], [address], 11/09/2024 09:30:19 11/10/19 25 11/08/2024 non-s tress test No observ ation record ed. [email or web address] [place] [address], [place], [address], 11/09/2024 10:15:59 11/23/19 25 11/22/2024 US, obste tric, follo w-up No observ ation record ed. [email or web address] [place] [address], [place], [address], 11/22/2024 17:08:53 11/23/19 25 11/22/2024 US, obste tric, bioph ysica l profi le + non-s tress test No observ ation record ed. [email or web address] [place] [address], [place], [address], 11/22/2024 17:09:03 11/23/19 25 11/22/2024 US, obste tric, follo w-up No observ ation record ed. [email or web address] [address], [place], [address], 11/22/2024 16:38:00 Result Notes None recorded. Problems Name Problem SNOMED Code Status Onset Date Resolution Date Notes Provider Name and Address Organization Details Recorded Time Anxiety 04008850 Active sees mfm at [facility] Scheduled 08/21 & 08/28 Level II [facility] and consult 09[facility] 5 09:46:38 Asthma 555636934 Active 2023 Roay zamora [facility] 4 20:15:22 30490099 Active 2023 Roya zamora [facility] 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 4 15:42:51 Bicornuat e uterus 74363593 Active Yaa Almazan [facility] 4 15:42:51 Anxiety 58587826 Active sees mfm at [facility] Scheduled 08/21 & 08/28 Level II US and consult 09/18 [facility] 5 09:46:38 Gestation al diabetes mellitus 39003049 Active Checking bs QID and serial growth Insulin 10u @ bedtime on 11/22 antental testing Yaa Almazan [facility] 5 22:23:57 Gestation al diabetes mellitus 53818415 Active Checking bs QID and serial growth Insulin 10u @ bedtime on 11/22 antental testing Yaa Almazan [facility] 5 22:23:57 Problem Notes None recorded. Procedures Surgical History Date Name Laterality Status Provider Name and Address Organization Details Recorded Time 4 Date of Last Pap Smear completed Roya Albrecht [facility] 05/24/2024 18:21:00 8 Breast Surgery completed Roya Albrecht [facility] 05/24/2024 20:17:58 Imaging Results None recorded. Procedure Notes None recorded. Medical Equipment None Reported. Allergies Allergen ID Allergen Name Allergen Category Reaction Reaction Severity Criticality Documentation Date Start Date Code Code System Note Provider Name and Address Organization Details Recorded Time 04187 ethinyl estradiol / levonorge strel medicatio n headache moderate Not available 05/24/2024 27645 8 [facility] 20:[facility]59 Medications Name Sig Start Date Stop [...] completed Not Available Not Available Not Available EatWithToEquiendo Ultra Test strips USE TO TEST BLOOD SUGAR FOUR TIMES DAILY FASTING AND 1 HOUR AFTER MEALS 11/22 completed Not Available Not Available Not Available Crinone 8 % vaginal gel Insert 1 applicato rful every day by vaginal route. 11/22 completed Not Available Not Available Not Available [...] completed Not Available Not Available Not Available Lantus Solostar U-100 Insulin 100 unit/mL (3 mL) subcutaneou s pen INJECT 5 UNITS UNDER THE SKIN EVERY NIGHT AT BEDTIME active Not Available Not Available No t Available canaglifloz in 150 mg-metformi n 500 mg tablet 05/24 completed Not Available Not Available Not Available OneTouch Ultra2 Meter USE TO TEST BLOOD SUGAR FOUR TIMES DAILY active Not Available Not Available No t Available OneTouch Delica Plus Lancet 33 gauge USE TO TEST BLOOD SUGAR FOUR TIMES DAILY FASTING AND 1 HOUR AFTER MEALS 11/22 completed Not Available Not Available Not Available albuterol 90 mcg-budeson carolina 80 mcg/actuati on HFA aerosol inhaler 05/24 completed Not Available Not Available Not Available Vitals Date Recorded Body weight Systolic blood pressure Diastolic blood pressure Provider Name and Address Organization Details Last Updated DateTime 11/22/2024 88010.7290 3 g 140 mm[Hg] 80 mm[Hg] Zoë Abebe [facility] 11/22/2024 17:12:11 Social History Question Answer Notes LastModified by Organizat ion Details LastModified Time Tobacco Smoking Status Never Smoker Roya zamora, [facility] 05/24/2024 20:17:42 What Is Your Level Of Alcohol Consumption? None [email or web address] Information not available 05/24/2024 If You Are , What Was Your Level Of Alcohol Consumption Prior To ? Occasional Information not available 05/24/2024 How Many Years Have You Consumed Alcohol? 8 [email or web address] Information not available 05/24/2024 Are You Blind Or Do You Have Difficulty Seeing? No [email or web address] Information n ot available 05/24/2024 What Is Your Level Of Caffeine Consumption? Moderate [email or web address] Information not available 05/24/2024 In The 14 Days Before Symptom Onset, Have You Had Close Contact With A Laboratory-confirm ed COVID-19 While That Case Was Ill? No [email or web address] Information n ot available 05/24/2024 In The 14 Days Before Symptom Onset, Have You Had Close Contact With A Person Who Is Under Investigation For COVID-19 While That Person Was Ill? No [email or web address] Information not available 05/24/2024 Have You Been To An Area Known To Be High Risk For COVID-19? No [email or web address] Information not available 05/24/2024 Are You Currently Employed? Yes [email or web address] Information not available 10/25/2024 Are You Deaf Or Do You Have Serious Difficulty Hearing? No Information not available 05/24/2024 What Type Of Diet Are You Following? REGULAR [email or web address] Information n ot available 05/24/2024 What Is The Highest Grade Or Level Of School You Have Completed Or The Highest Degree You Have Received? 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 Yes [email or web address] Information not available 05/24/2024 Do You Use Protection During Sex? No [email or web address] Information not available 05/24/2024 Do You Use Your Seat Belt Or Car Seat Routinely? Yes [email or web address] Information not available 05/24/2024 Are You Sexually Active? Yes [email or web address] Information not available 10/25/2024 Do You Have Smoke And Carbon Monoxide Detectors In Your Home? Yes [email or web address] Information not available 05/24/2024 How Much Tobacco Do You Smoke? No [email or web address] Information not available 05/24/2024 Do You Feel Stressed (tense, Restless, Nervous, Or Anxious, Or Unable To Sleep At Night)? [id number] [email or web address] Information not available 05/24/2024 Do You Use Any Illicit Or Recreational Drugs? Yes [email or web address] Information not available 05/24/2024 Do You Use Sunscreen Routinely? No [email or web address] Information not available 05/24/2024 Has Tobacco Cessation Counseling Been Provided? Yes [email or web address] Information not available 05/24/2024 On What Date Was Tobacco Cessation Counseling Provided? 09/13/2024 [email or web address] Information not available 09/13/2024 Have You Used IV Drugs? No [email or web address] Information not available 05/24/2024 Do You Or Have You Ever Used Any Other Forms Of Tobacco Or Nicotine? No [email or web address] Information not available 05/24/2024 Sex: Unknown Functional Status Question Answer Note LastModified by Organizat ion Details LastModified Time Do you have difficulty walking or climbing stairs? No [email or web address] Information not available 05/24/2024 Are you able to walk? YESWOREST [email or web address] Information not available 05/24/2024 Are you able to care for yourself? Yes [email or web address] Information not available 05/24/2024 Do you have difficulty dressing or bathing? No [email or web address] Information not available 05/24/2024 What is your exercise level? Occasional [email or web address] Information not available 05/24/2024 Mental Status None recorded. Family History Relationship Description Onset Age of this Age Resolved Age Notes LastModified by Organization Details LastModified Time Father Diabetes mellitus [email or web address] Not available 05/24 18:21:00 Maternal Grandmother Malignant tumor of breast 60 [email or web address] Not available 05/24 20:17:04 Paternal Uncle Malignant tumor of lung [email or web address] Not available 05/24 20:17:14 Medical History Condition Response Allergies (Food, seasonal, environmental ) Y Other N Breast Cancer N Drug/Latex Allergies/Reactions N Blood Transfusion N Dermatologic Disorders N Lung Disease N Defects or Inherited Disease N Breast Problem Y Gestational Diabetes Y Hematologic disorders N Anesthesia Complications N History of STI Y Deep Vein Thrombosis N Polycystic ovary syndrome N Anxiety Disorder Y Autoimmune disease N Arthritis N Infertility N Polyps N Acid Reflux (GERD) N History of abnormal pap Y Cancer N Stroke N Varicosities N Neurologic/Epilepsy N Endometriosis N High Cholesterol N Headaches Y Fibromyalgia N Kidney Disease N Heart Problems N Kidney or Bladder Problems N Thyroid Problems N GI Problems N Eating Disorder N Anemia N Art (IVF or FET) N Psychiatric Illness N Ovarian Cancer N Diabetes Y Pulmonary (TB, Asthma) N Hepatitis/Liver Disease N No Past Medical History N Eczema N Urinary Tract Infection N Abuse/Domestic Violence N Asthma Y Trauma/Violence N Depression/ depression Y Heart Disease N Pre-Eclampsia N Hypertension N Osteoporosis N Thrombophilias N Gynecological History Statement/Question Response Abnormal Pap Y Flow Moderate Date of Last Mammogram Date of LMP [...] SNOMED-CT Code Diagnosis ICD10 Code Diagnosis Note [id number] Bree Staton [place] [address],[place] [address] 10/25/2024 09:05:30 10/25/2024 10:51:00 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.03 Z3A.30 [id number] JAIR TURNER MD [place] [address],[place] [address] 10/25/2024 09:05:58 10/25/2024 12:13:25 Routine care 533760088 Z34.03 [id number] Mirna Traylor CNM [place] [address],[place] [address] 11/08/2024 17:13:06 11/08/2024 18:10:37 Gestation period, 32 weeks 5927591 Z3A.32 [id number] Roya Albrecht [place] [address],[place] [address] 11/09/2024 09:01:13 11/09/2024 10:00:50 Gestational diabetes mellitus 31328554 O24.419 [id number] Lenore Hernandez [place] [address],[place] [address] 11/22/2024 15:56:03 11/22/2024 16:36:44 Gestational diabetes mellitus 68133209 O24.414 Z3A.34 [id number] Geoffrey Nguyen MD [place] [address],[place] [address] 11/22/2024 16:24:33 11/23/2024 08:12:21 Routine care 887832990 Z34.83 Health Concerns Section Related Observation LastModified by Organization Detai ls LastModified Time None Recorded Concern Status LastModified by Organization Details LastModified Time None Recorded Payers Encounter Date Sequence Insurance Name Policy Number Policy Barry Covered Member ID Barry Member ID Guarantor Name 11/22/2024 1 [place] [id number] Radmaximo Stout [id number] Briseida Stout OBGyn Episode Ob Episode Information Episode Created Date Number of Fetuses Patient Bloodtype Patient rh Status Prepregnancy Weight lbs Domestic Partner Domestic Partner Phone Father Name Waiter/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 Economy Class Status 06/21/20 24 1 O Positive 202 Amarilis price OPEN Fetus Data First Name Last Name Admitted to NICU Weight (g) Sex Living Outcome Pediatric Complications Fetus ID Race Codes Race Delivery Type [id number] Problems Problem Notes Problem Name Start Date End Date Resolution Snomed Code Not e Bicornuate uterus 03199003 Anxiety 38626551 [facility] 08[facility]28 Level II US and consult 09/18 Level II US [facility] Gestational diabetes mellitus 72348466 Checking bs QID and serial growthInsulin 10u @ bedtime on 11/22 antental testing Esteban Calculation Initial Esteban Date Initial Exam [...] Weight in lbs Pre/Post Dialysis Refused Weight 200.453383982590 BP Diastolic BP Location Tested BP Systolic [...] Type Weight in lbs Pre/Post Dialysis Refused 203.66317991653 BP Diastolic BP Location Tested BP Systolic [...] Type Weight in lbs Pre/Post Dialysis Refused 208.011140430734 BP Diastolic BP Location Tested BP Systolic BP Type 83 139 Fetus Heart Rate Present A 147 Present Fetus Movement A Yes Comments Patient step son bounce off stomach. Patient states that is having pain and cramping. Patient was seen yesterday and was told everything was okay. US wnl, discussed precautions and education, no FM yet, anterior placenta, has visit with [facility] for level 2 next week. discussed plan questions answered Flowsheet Date 08/24/2024 Fields Score Blood Edema Fundus Height Fundus Units Glucose Ketones Leukocytes Nitrite Labor Signs Protein Cervic Dilation Cervic Effacement Cervic Station neg none Type Weight in lbs Pre/Post Dialysis Refused 209.314215525347 BP Diastolic BP Location Tested BP Systolic BP Type 66 134 Fetus Heart Rate Present Fetus Movement A Yes Comments 21wk shortened cervix MFM us per SP 8Am to discuss. Patient states that having some pain. Flowsheet Date 09/13/2024 Fields Score Blood Edema Fundus Height Fundus Units Glucose Ketones Leukocytes Nitrite Labor Signs Protein Cervic Dilation Cervic Effacement Cervic Station neg trace Type Weight in lbs Pre/Post Dialysis Refused 216.094324558854 BP Diastolic BP Location Tested BP Systolic BP Type 77 122 Fetus Heart Rate Present A 144 Present Fetus Movement A Yes Comments Patient is having some swell ing. precautions and education, +FM, has f/u at [facility], continue pelvic rest, f/u 4 weeks with gct Flowsheet Date 10/11/2024 Fields Score Blood Edema Fundus Height Fundus Units Glucose Ketones Leukocytes Nitrite Labor Signs Protein Cervic Dilation Cervic Effacement Cervic Station neg trace Type Weight in lbs Pre/Post Dialysis Refused 221.810960556622 BP Diastolic BP Location Tested BP Systolic BP Type 82 132 Fetus Heart Rate Present Fetus Movement A Yes Comments patient had rash on thigh an d is having some swelling. reviewed precautions and education +FM, GCT today plan growth, does not have f/u at [facility] scheduled Flowsheet Date 10/25/2024 Fields Score Blood Edema Fundus Height Fundus Units Glucose Ketones Leukocytes Nitrite Labor Signs Protein Cervic Dilation Cervic Effacement Cervic Station Type Weight in lbs Pre/Post Dialysis Refused BP Diastolic BP Location Tested BP Systolic BP Type Fetus Heart Rate Present Fetus Movement Comments Flowsheet Date 10/25/2024 Fields Score Blood Edema Fundus Height Fundus Units Glucose Ketones Leukocytes Nitrite Labor Signs Protein Cervic Dilation Cervic Effacement Cervic Station neg trace Type Weight in lbs Pre/Post Dialysis Refused Weight 218.265644182924 BP Diastolic BP Location Tested BP Systolic BP Type 85 L arm 132 sitting Fetus Heart Rate Present A Present Fetus Movement A Yes Comments Patient c/o Luther Larson. C ontinues on progesterone supplementation. EFW 46%, normal fluid. 3h GTT today. Tdap discussed, declined RSV. Mood stable, anxiety improved. RTC 2 weeks. Flowsheet Date 11/08/2024 Fields Score Blood Edema Fundus Height Fundus Units Glucose Ketones Leukocytes Nitrite Labor Signs Protein Cervic Dilation Cervic Effacement Cervic Station Type Weight in lbs Pre/Post Dialysis Refused Weight 220.972722213665 BP Diastolic BP Location Tested BP Systolic BP Type 83 133 Fetus Heart Rate Present Fetus Movement Comments Flowsheet Date 11/08/2024 Fields Score Blood Edema Fundus Height Fundus Units Glucose Ketones Leukocytes Nitrite Labor Signs Protein Cervic Dilation Cervic Effacement Cervic Station neg none Type Weight in lbs Pre/Post Dialysis Refused Weight 220.103999285076 BP Diastolic BP Location Tested BP Systolic BP Type 83 133 Fetus Heart Rate Present Fetus Movement A Yes Comments Patient states that having s ome pain, cramping, discharge, nausea and vomiting. reviewed blood sugars, fastings slightly elevated, discussed insulin, try to increase protein add snack before hs, call for preadmit, +FM precautions and education f/u 2 weeks Flowsheet Date 11/22/2024 Fields Score Blood Edema Fundus Height Fundus Units Glucose Ketones Leukocytes Nitrite Labor Signs Protein Cervic Dilation Cervic Effacement Cervic Station Type Weight in lbs Pre/Post Dialysis Refused BP Diastolic BP Location Tested BP Systolic BP Type Fetus Heart Rate Present Fetus Movement Comments Flowsheet Date 11/22/2024 Fields Score Blood Edema Fundus Height Fundus Units Glucose Ketones Leukocytes Nitrite Labor Signs Protein Cervic Dilation Cervic Effacement Cervic Station Type Weight in lbs Pre/Post Dialysis Refused 219.080641144445 BP Diastolic BP Location Tested BP Systolic BP Type 80 L arm 140 sitting Fetus Heart Rate Present Fetus Movement A Yes Comments Discussed blood sugars, agre ed to increase nighttime insulin to 10 units. Discussed testing, discussed obstetric history with worrisome cervix. Flowsheet Date 11/22/2024 Fields Score Blood Edema Fundus Height Fundus Units Glucose Ketones Leukocytes Nitrite Labor Signs Protein Cervic Dilation Cervic Effacement Cervic Station Type Weight in lbs Pre/Post Dialysis Refused BP Diastolic BP Location Tested BP Systolic BP Type Fetus Heart Rate Present Fetus Movement Comments Menstrual History Last Menstrual Date Menses Monthly [...]
--- OUTSIDE RECORDS SUMMARY | 2024-11-23 07:38 | XMS_ITS | Data Portability ---
Author Organization [facility] [place] Address [address] [place] [address] [place] [address] Assessment Encounter Date Assessment Date Assessment LastModified by Organization Details LastModified Time 11/08/2024 11/08/2024 Patient is __32_weeks . Discussed plan. [email or web address] Not available 11/08/2024 18:05:24 11/22/2024 11/22/2024 Patient is ___weeks . Discussed plan. [email or web address] Not available 11/22/2024 17:10:52 Plan of Treatment Reminders Order Date Submit Date Provider Last Modified By Organization Details Last Modified Time Details Appointments OB ROUTINE 2024 04:15P Coleman Mirna Traylor CNM Not available Not available Not available OB ROUTINE 2024 09:00A Coleman Bradley Kymberly CNM Not available Not available Not available OB ROUTINE 2024 09:00A Coleman Bradley Kymberly CNM Not available Not available Not available OB ROUTINE 2024 09:00A Coleman Bradley GEETHA TraylorM Not available Not available Not available Lab None recorded. Referral None recorded. Procedures None recorded. Surgeries None recorded. Imaging US, obstetric , follow-up 2024 025 [email or web address] [address], [address], [place], [address], 11/22/2024 17:09:39 US, obstetric , biophysic al profile + non-stres s test 2024 025 [email or web address] [address], [address], [place], [address], 11/22/2024 17:09:20 non-stres s test 2024 025 [address], [address], [place], [address], 11/09/2024 10:00:50 Medication Orders None recorded. Patient TargetsNo targets recorded. Patient InstructionsNo instructions recorded. Reason for Referral None Reported. Results Created Date Observation Date Name Description Value Unit Range Abnormal Flag Note LastModifiedBy Organization Detail LastModifiedTime 10/12/1910/11/2024 HEMAT OCRIT (HCT) HCT 33.3 % (based on docume nted legal sex) 34.0-4 5.0 low Not Available [facility] (Lab) [address], [place], [address], 10/12/2024 13:43:28 10/12/19 25 10/11/2024 HEMOG LOBIN (HGB) HGB 11.1 g/dL (based on docume nted legal sex) 11.6-1 5.4 low Not Available [facility] (Lab) [address], [place], [address], 10/12/2024 13:43:28 10/12/19 25 10/11/2024 HIV 1/2 ANTIG EN/AN TIBOD Y, REFLE X CONFI RMATI ON HIV antigen/anti body Nonrea ctive nonrea ctive HIV-1 antig en and HIV-1 /HIV- 2 antib odies were not detec sharif. No labor atory evide nce of HIV infec tion. Not Available [facility] (Lab) [address], [place], [address], 10/12/2024 13:43:29 10/12/19 25 10/11/2024 GTT - GESTA JESUS L SCREE N, ACOG OB glucose, 1 hour screen 196 mg/dL 70-135 high Not Available [facility] (Lab) [address], [place], [address], 10/12/2024 13:43:29 10/12/19 25 10/11/2024 RPR SCREE N, REFLE X TITER /CONF IRMAT ION RPR qualitative Nonrea ctive nonrea ctive Not Available [facility] (Lab) [address], [place], [address], 10/12/2024 13:43:29 10/26/19 25 10/25/2024 GTT - GESTA JESUS L, 3 HOUR, ACOG glucose, fasting acog 96 mg/dL 70-94 high Not Available [facility] (Lab) [address], [place], [address], 10/26/2024 03:40:15 10/26/19 25 10/25/2024 GTT - GESTA JESUS L, 3 HOUR, ACOG glucose, 1 hour acog 181 mg/dL 70-179 high Not Available [facility] (Lab) [address], [place], [address], 10/26/2024 03:40:15 10/26/19 25 10/25/2024 GTT - GESTA JESUS L, 3 HOUR, ACOG glucose, 2 hour acog 155 mg/dL 70-154 high Not Available [facility] (Lab) [address], [place], [address], 10/26/2024 03:40:15 10/26/19 25 10/25/2024 GTT - GESTA JESUS L, 3 HOUR, ACOG glucose, 3 hour acog 138 mg/dL 70-139 Not Available [facility] (Lab) [address], [place], [address], 10/26/2024 03:40:15 10/26/19 25 10/25/2024 US, obste tric, follo w-up No observ ation record ed. [email or web address] [place] [address], [place], [address], 10/25/2024 12:55:16 10/26/19 25 10/25/2024 US, obste tric, follo w-up No observ ation record ed. [address], [place], [address], 10/27/2024 13:40:59 11/10/19 25 11/08/2024 non-s tress test No observ ation record ed. [place] [address], [place], [address], 11/09/2024 09:30:19 11/10/19 25 11/08/2024 non-s tress test No observ ation record ed. [email or web address] [place] [address], [place], [address], 11/09/2024 10:15:59 11/23/19 25 11/22/2024 US, obste tric, follo w-up No observ ation record ed. [email or web address] [place] [address], [place], [address], 11/22/2024 17:08:53 11/23/19 25 11/22/2024 US, obste tric, bioph ysica l profi le + non-s tress test No observ ation record ed. [email or web address] [place] [address], [place], [address], 11/22/2024 17:09:03 11/23/19 25 11/22/2024 US, obste tric, follo w-up No observ ation record ed. [email or web address] [address], [place], [address], 11/22/2024 16:38:00 Result Notes None recorded. Problems Name Problem SNOMED Code Status Onset Date Resolution Date Notes Provider Name and Address Organization Details Recorded Time Anxiety 25776703 Active sees mfm at [facility] Scheduled 08/21 & 08/28 Level II US and consult 09/18 Level II [facility] Yaa zamora [facility] 5 09:46:38 Asthma 680341944 Active 2023 Roya Albrecht sera [facility] 4 20:15:22 41233797 Active 2023 Roya Albrecht sera [facility] 4 19:30:51 Bicornuat e uterus 74027099 Active Yaa Almazan [facility] 4 15:42:51 Bicornuat e uterus 13188324 Active Yaa Almazan [facility] 4 15:42:51 Anxiety 39681878 Active sees mfm at [facility] Scheduled 08/21 & 08/28 Level II US and consult 09/18 Level II [facility] Yaa zamora [facility] 5 09:46:38 Gestation al diabetes mellitus 03246793 Active Checking bs QID and serial growth Insulin 10u @ bedtime on 11/22 antental testing Yaa Almazan [facility] 5 22:23:57 Gestation al diabetes mellitus 09408075 Active Checking bs QID and serial growth Insulin 10u @ bedtime on 11/22 antental testing Yaa Almazan [facility] 5 22:23:57 Problem Notes None recorded. Procedures Surgical History Date Name Laterality Status Provider Name and Address Organization Details Recorded Time 4 Date of Last Pap Smear completed Roya Albrecht [facility] 05/24/2024 18:21:00 8 Breast Surgery completed Roya Albrecht [facility] 05/24/2024 20:17:58 Imaging Results Imaging Date Name Status [facility] Details LastModified Time 10/25/2024 US, obstetric, follow-up completed [email or web address] [address], [place], [address], 10/25/2024 12:55:16 10/25/2024 US, obstetric, follow-up completed [email or web address] [address], [place], [address], 10/27/2024 13:40:59 11/08/2024 non-stress test completed [email or web address] [address], [place], [address], 11/09/2024 09:30:19 11/08/2024 non-stress test completed [email or web address] [address], [place], [address], 11/09/2024 10:15:59 11/22/2024 US, obstetric, follow-up completed [email or web address] [address], [place], [address], 11/22/2024 17:08:53 11/22/2024 US, obstetric, biophysical profile + non-stress test completed [email or web address] [address], [place], [address], 11/22/2024 17:09:03 11/22/2024 US, obstetric, follow-up active [email or web address], [place], [address], 11/22/2024 16:38:00 Procedure Notes None recorded. Medical Equipment None Reported. Allergies Allergen ID Allergen Name Allergen Category Reaction Reaction Severity Criticality Documentation Date Start Date Code Code System Note Provider Name and Address Organization Details Recorded Time 76104 ethinyl estradiol / levonorge strel medicatio n headache moderate Not available 05/24/2024 10900 8 RxNorm Roya Albrecht [facility], [place] - [facility] 20:10:59 Medications Name Sig Start Date [...] completed Not Available Not Available Not Available [employer] Ultra Test strips USE TO TEST BLOOD [...] height Body mass index (BMI) Body weight Body height Body mass index (BMI) Body weight Systolic blood pressure Diastolic blood pressure Systolic blood pressure Diastolic blood pressure Provider Name and Address Organization Details Last Updated DateTime 5 162.56 cm 37.8 kg/m2 39331.3 2 g 162.56 cm 37.8 kg/m2 31179.3 2 g 133 mm[Hg] 83 mm[Hg] 133 mm[Hg] 83 mm[Hg] Roya Albrecht [facility] 5 09:26:22 Date Recorded Body weight Systolic blood pressure Diastolic blood pressure Provider Name and Address Organization Details Last Updated DateTime 11/22/2024 43717.7290 3 g 140 mm[Hg] 80 mm[Hg] Zoë Andrae [facility] 11/22/2024 17:12:11 Social History Question Answer Notes LastModified by Organizat ion Details LastModified Time Tobacco Smoking Status Never Smoker Roya Albrecht [facility], [facility] 05/24/2024 20:17:42 What Is Your Level Of Alcohol Consumption? None Information not available 05/24/2024 If You Are , What Was Your Level Of Alcohol Consumption Prior To ? Occasional [email or web address] Information not available 05/24/2024 How Many Years Have You Consumed Alcohol? 8 [email or web address] Information not available 05/24/2024 Are You Blind Or Do You Have Difficulty Seeing? No [email or web address] Information n ot available 05/24/2024 What Is Your Level Of Caffeine Consumption? Moderate Information not available 05/24/2024 In The 14 Days Before Symptom Onset, Have You Had Close Contact With A Laboratory-confirm ed COVID-19 While That Case Was Ill? No [email or web address] Information n ot available 05/24/2024 In The 14 Days Before Symptom Onset, Have You Had Close Contact With A Person Who Is Under Investigation For COVID-19 While That Person Was Ill? No [email or web address] Information not available 05/24/2024 Have You Been To An Area Known To Be High Risk For COVID-19? No [email or web address] Information not available 05/24/2024 Are You Currently Employed? Yes Information not available 10/25/2024 Are You Deaf Or Do You Have Serious Difficulty Hearing? No [email or web address] Information not available 05/24/2024 What Type Of Diet Are You Following? REGULAR [email or web address] Information n ot available 05/24/2024 What Is The Highest Grade Or Level Of School You Have Completed Or The Highest Degree You Have Received? 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 Yes [email or web address] Information not available 05/24/2024 Do You Use Protection During Sex? No [email or web address] Information not available 05/24/2024 Do You Use Your Seat Belt Or Car Seat Routinely? Yes [email or web address] Information not available 05/24/2024 Are You Sexually Active? Yes [email or web address] Information not available 10/25/2024 Do You Have Smoke And Carbon Monoxide Detectors In Your Home? Yes [email or web address] Information not available 05/24/2024 How Much Tobacco Do You Smoke? No [email or web address] Information not available 05/24/2024 Do You Feel Stressed (tense, Restless, Nervous, Or Anxious, Or Unable To Sleep At Night)? [id number] Information not available 05/24/2024 Do You Use Any Illicit Or Recreational Drugs? Yes [email or web address] Information not available 05/24/2024 Do You Use Sunscreen Routinely? No [email or web address] Information not available 05/24/2024 Has Tobacco Cessation Counseling Been Provided? Yes [email or web address] Information not available 05/24/2024 On What Date Was Tobacco Cessation Counseling Provided? 09/13/2024 [email or web address] Information not available 09/13/2024 Have You Used IV Drugs? No Information not available 05/24/2024 Do You Or Have You Ever Used Any Other Forms Of Tobacco Or Nicotine? No [email or web address] Information not available 05/24/2024 Sex: Unknown Functional Status Question Answer Note LastModified by Organizat ion Details LastModified Time Do you have difficulty walking or climbing stairs? No [email or web address] Information not available 05/24/2024 Are you able to walk? YESWOREST [email or web address] Information not available 05/24/2024 Are you able to care for yourself? Yes [email or web address] Information not available 05/24/2024 Do you have difficulty dressing or bathing? No [email or web address] Information not available 05/24/2024 What is your exercise level? Occasional [email or web address] Information not available 05/24/2024 Mental Status None recorded. Family History Relationship Description Onset Age of this Age Resolved Age Notes LastModified by Organization Details LastModified Time Father Diabetes mellitus [email or web address] Not available 05/24 18:21:00 Maternal Grandmother Malignant tumor of breast 60 Not available 05/24 20:17:04 Paternal Uncle Malignant tumor of lung [email or web address] Not available 05/24 20:17:14 Medical History Condition [...] SNOMED-CT Code Diagnosis ICD10 Code Diagnosis Note [id number] Lenore David [place] [address] [address] 05/24/2024 16:32:42 05/24/2024 17:47:12 [id number] Mirna Traylor [place] [address],[place] [address] 05/24/2024 16:33:03 05/25/2024 09:42:07 Amenorrhea 90598779 N91.2 pap not collected, records release signedasth ma-inhaler as neededPNV dailywill talk to dr. turner about clonazepam , will await her answer, only use as necessary prn usereviewe d office, precaution s and education plan 12 week new ob and first look with nipt Venereal d isease screening 122011528 Z11.3 Anxiety 81740626 F41.9 [id number] Bree Staton [place] [address],[place] [address] 06/21/2024 17:33:21 06/22/2024 02:59:39 screening 950457678 Z36.82 Z3A.12 [id number] Mirna Traylor [facility] [address],[place] [address] 06/21/2024 17:34:12 06/23/2024 12:41:54 Gestation period, 13 weeks 44257037 Z3A.13 Routine an tenatal care 877821338 Z34.90 [id number] Mirna Traylor [facility] [address],[place] [address] 07/19/2024 17:12:06 07/19/2024 17:48:43 [id number] Lenore [facility] [address],[place] [address] 08/15/2024 14:26:05 08/15/2024 15:13:27 Abdominal pain in 838647196 O99.891 Z3A.21 [id number] Mirna Traylor [facility] [address],[place] [address] 08/16/2024 14:58:53 08/16/2024 16:21:44 Gestation period, 21 weeks 85381071 Z3A.21 [id number] Mrina Traylor [facility] [address],[place] [address] 08/24/2024 08:55:14 08/24/2024 10:27:52 Short cervical length in 742658264 O26.879 discussed and reviewed us, cerclage, progestero ne, f/u mfm and await rec [id number] Mirna Traylor [facility] [address],[place] [address] 09/13/2024 16:44:22 09/13/2024 17:26:56 Gestation period, 24 weeks 904744319 Z3A.24 [id number] Mirna Traylor [facility] [address],[place] [address] 10/11/2024 16:47:58 10/11/2024 17:43:19 Gestation period, 28 weeks 70501295 Z3A.28 [id number] Bree Staton [place] [address],[place] [address] 10/25/2024 09:05:30 10/25/2024 10:51:00 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 Z3A.30 [id number] JAIR TURNER MD [place] [address],[place] [address] 10/25/2024 09:05:58 10/25/2024 12:13:25 Routine care 776597785 Z34.03 [id number] [facility] [address],[place] [address] 11/08/2024 17:13:06 11/08/2024 18:10:37 Gestation period, 32 weeks 5485325 Z3A.32 [id number] Roya Albrecht [place] [address],[place] [address] 11/09/2024 09:01:13 11/09/2024 10:00:50 Gestational diabetes mellitus 86876589 O24.419 [id number] Lenore Hernandez [place] [address],[place] [address] 11/22/2024 15:56:03 11/22/2024 16:36:44 Gestational diabetes mellitus 23256700 O24.414 Z3A.34 [id number] Geoffrey Nguyen MD [place] [address],[place] [address] 11/22/2024 16:24:33 11/23/2024 08:12:21 Routine care 491509063 Z34.83 Health Concerns Section Related Observation LastModified by Organization Detai ls LastModified Time None Recorded Concern Status LastModified by Organization Details LastModified Time None Recorded Advance Directives Directive None Recorded Payers Encounter Date Sequence Insurance Name Policy Number Policy Barry Covered Member ID Barry Member ID Guarantor Name 11/08/2024 1 [id number] Radeana Gentzyel [id number] Radeana Gentzyel 11/08/2024 1 [place] [id number] Radeana Gentzyel [id number] Radeana Gentzyel 11/22/2024 1 [place] [id number] Radeana Gentzyel [id number] Radeana Gentzyel 11/22/2024 1 [place] [id number] Radmaximo Gentzyel [id number] 27 Radeatricia Smithyel OBGyn Episode Ob Episode Information Episode Created Date Number of Fetuses Patient Bloodtype Patient rh Status Prepregnancy Weight lbs Domestic Partner Domestic Partner Phone Father Name Net Software Engineer Status 06/21/20 24 1 O Positive 202 Amarilis Murry l OPEN Fetus Data First Name Last Name Admitted to NICU Weight (g) Sex Living Outcome Pediatric Complications Fetus ID Race Codes Race Delivery Type [id number] Problems Problem Notes Problem Name Start Date End Date Resolution Snomed Code Not e Bicornuate uterus 30543256 Anxiety 14708367 sees mfm kristi wyman mercyScheduled 08/21 & 08/28 Level II US and consult 09/18 Level II [facility] Gestational diabetes mellitus 00216992 Checking bs QID and serial growthInsulin 10u @ bedtime on 11/22 antental testing Esteban Calculation Initial Esteban Date Initial Exam Date Initial Exam Provider Initial Ultrasound Date Last Menstrual Period Date Ultra Sound Weeks Gestation 12/23/2024 05/24/2024 Mirna Kymberly 05/24/2024 03/18/2024 8 Eighteen To Twenty Week [...] Weight in lbs Pre/Post Dialysis Refused Weight 200.537469558144 BP Diastolic BP Location Tested BP Systolic [...] Type Weight in lbs Pre/Post Dialysis Refused 203.35253194423 BP Diastolic BP Location Tested BP Systolic [...] Type Weight in lbs Pre/Post Dialysis Refused 208.571388719287 BP Diastolic BP Location Tested BP Systolic BP Type 83 139 Fetus Heart Rate Present A 147 Present Fetus Movement A Yes Comments Patient step son bounce off stomach. Patient states that is having pain and cramping. Patient was seen yesterday and was told everything was okay. US wnl, discussed precautions and education, no FM yet, anterior placenta, has visit with [facility] for level 2 next week. discussed plan questions answered Flowsheet Date 08/24/2024 Fields Score Blood Edema Fundus Height Fundus Units Glucose Ketones Leukocytes Nitrite Labor Signs Protein Cervic Dilation Cervic Effacement Cervic Station neg none Type Weight in lbs Pre/Post Dialysis Refused 209.689187956457 BP Diastolic BP Location Tested BP Systolic [...] Type Weight in lbs Pre/Post Dialysis Refused 216.550616946934 BP Diastolic BP Location Tested BP Systolic BP Type 77 122 Fetus Heart Rate Present A 144 Present Fetus Movement A Yes Comments Patient is having some swell ing. precautions and education, +FM, has f/u at [facility], continue pelvic rest, f/u 4 weeks with gct Flowsheet Date 10/11/2024 Fields Score Blood Edema Fundus Height Fundus Units Glucose Ketones Leukocytes Nitrite Labor Signs Protein Cervic Dilation Cervic Effacement Cervic Station neg trace Type Weight in lbs Pre/Post Dialysis Refused 221.429823647660 BP Diastolic BP Location Tested BP Systolic BP Type 82 132 Fetus Heart Rate Present Fetus Movement A Yes Comments patient had rash on thigh an d is having some swelling. reviewed precautions and education +FM, GCT today plan growth, does not have f/u at [facility] scheduled Flowsheet Date 10/25/2024 Fields Score [...] Weight in lbs Pre/Post Dialysis Refused Weight 218.224665873030 BP Diastolic BP Location Tested BP Systolic [...] Weight in lbs Pre/Post Dialysis Refused Weight 220.493151248497 BP Diastolic BP Location Tested BP Systolic BP Type 83 133 Fetus Heart Rate Present Fetus Movement Comments Flowsheet Date 11/08/2024 Fields Score Blood Edema Fundus Height Fundus Units Glucose Ketones Leukocytes Nitrite Labor Signs Protein Cervic Dilation Cervic Effacement Cervic Station neg none Type Weight in lbs Pre/Post Dialysis Refused Weight 220.696513059684 BP Diastolic BP Location Tested BP Systolic [...] Type Weight in lbs Pre/Post Dialysis Refused 219.557922554200 BP Diastolic BP Location Tested BP Systolic [...]
[2024-11-23 07:45] VITALS: BMI 36.5
[2024-11-23 07:48] VITALS: BP 134/75; PULSE 73
[2024-11-23 07:50] VITALS: TEMP 36.1
[2024-11-23 08:00] VITALS: BP 141/84; PULSE 64
--- NOTE | 2024-11-23 08:06 | PM.IMHP ---
H&P: [facility] History of Present Illness Date/Time: 11/23/24 08:06 Chief Complaint: Vaginal bleeding Narrative: This patient is a 29-year-old multiparous female at 35 weeks gestation who presents for vaginal bleeding. She had intercourse twice after discontinuation of the pelvic rest. The bleeding following that. She recently discontinued her vaginal progesterone for her were worrisome cervix. She was examined here. There is a small amount of blood. Her cervix is 1 cm. No active bleeding. Should we will perform ultrasound to evaluate placenta. She denies any nausea, vomiting fever, chills. She denies any contractions. She denies any loss of fluid. She denies any chest pain shortness of breath. To discharge if evaluation reason normal. Review of Systems Review of Systems: All systems reviewed & are unremarkable except as noted in HPI and below Constitutional: Constitutional: Denies chills, Denies fatigue, Denies fever(s) and Denies weakness Eyes: Eyes: Denies blurry vision, Denies change in vision, Denies loss of peripheral vision, Denies loss of vision, Denies other visual disturbances and Denies eye pain ENT: Denies vertigo, Denies dizziness, Denies hearing loss, Denies mouth pain, Denies nasal obstruction, Denies neck mass and Denies neck pain Cardiovascular: Cardiovascular: Denies chest pain, Denies diaphoresis, Denies syncope, Denies leg edema and Denies dyspnea Respiratory: Respiratory: Denies chest congestion, Denies cough, Denies hemoptysis, Denies dyspnea and Denies wheezing Gastrointestinal: Gastrointestinal: Denies abdominal pain, Denies constipation, Denies diarrhea, Denies nausea and Denies vomiting Genitourinary: Genitourinary: Denies hematuria, Denies change in libido, Denies nocturia, Denies genital lesions, Denies flank pain and Denies urinary urgency Musculoskeletal: Musculoskeletal: Denies abnormal gait, Denies back pain, Denies myalgias, Denies arthralgias, Denies joint swelling, Denies muscle weakness and Denies neck pain Integumentary/Breasts: Skin/Breast: Denies swelling, Denies breast pain, Denies breast mass, Denies dry skin, Denies nipple discharge, Denies unusual bruising and Denies jaundice Neurologic: Denies Neuro-related abnormal movements, Denies Abnormal speech present, Denies abnormal gait, Denies behavioral changes, Denies confusion, Denies vertigo, Denies dizziness, Denies syncope, Denies loss of vision, Denies memory loss, Denies convulsions and Denies weakness Psychiatric: Psychiatric: Denies abnormal sleep pattern, Denies behavioral changes, Denies change in libido, Denies confusion, Denies depression, Denies anhedonia and Denies memory loss Endocrine: Endocrine: Reports no additional endocrine complaints, Denies change in libido and Denies fatigue Hematologic/Lymphatic: Hematologic/Lymphatic: Reports no additional hematologic/lymphatic complaints Allergic/Immunologic: Allergic/Immunologic: Reports no additional allergic/immunologic complaints and Denies wheezing [facility] Social History Social History Spiritual care concerns: No Meds Vital Signs Vital Signs - 24 hr 11/23/24 07:48 11/23/24 08:00 Pulse Rate 73 64 Blood Pressure 134/75 141/84 H Exam Const: General: cooperative, healthy appearing, comfortable and no acute distress Orientation/consciousness: oriented to person, oriented to place and oriented to time HENMT: Head: normal to inspection Ears: external ears normal Face/Nose/Sinus: Normal external nose present and normal facial exam Face and sinus: normal facial exam Eyes: General: appearance normal, both eyes and all related structures Neck: Neck: normal visual inspection, trachea midline and supple Resp: Auscultation: clear to auscultation bilaterally, no crackles, no rales, no rhonchi and no wheezes Cardio: Rate: regular rate Rhythm: regular rhythm Heart sounds: no click, no murmurs and no rubs GI: GI Palp: No abdominal tenderness, No Soft to palpation, No Tenderness to palpation present (GI) and No Palpable mass present Auscultation: normal bowel sounds Skin: General skin exam: normal color and no rashes or lesions noted Neuro: General: oriented to person, oriented to place and oriented to time Extrem: General: normal to inspection, no joint enlargement, no clubbing, cyanosis or edema, no pedal edema and no calf tenderness Psych: Appearance: grossly normal Mental Status: mental status grossly normal Speech and movement: Normal speech and movement present Assessment and Plan Assessment and plan (1) Third trimester bleeding: Code(s): O46.93 - Antepartum hemorrhage, unspecified, third trimester Status: Acute Plan This patient is a 29-year-old multiparous female at 35 weeks gestation who presents for vaginal bleeding. She had intercourse twice after discontinuation of the pelvic rest. The bleeding following that. She recently discontinued her vaginal progesterone for her were worrisome cervix. She was examined here. There is a small amount of blood. Her cervix is 1 cm. No active bleeding. Should we will perform ultrasound to evaluate placenta. She denies any nausea, vomiting fever, chills. She denies any contractions. She denies any loss of fluid. She denies any chest pain shortness of breath. To discharge if evaluation reason normal.
[2024-11-23 08:15] VITALS: BP 130/77; PULSE 68
[2024-11-23 08:30] VITALS: BP 124/76; PULSE 67
== END 2024-11-23 12:00 | disposition home or self-care (01) ==
PROVIDERS: Admitting Provider Obstetrics & Gynecology; Referring Provider Advanced Practice Midwife; Visit Provider Obstetrics & Gynecology
DX: O46.93 Antepartum hemorrhage, unspecified, third trimester (principal); Z3A.35 35 weeks gestation of pregnancy
CPT/HCPCS: 76819; G0378; G0379

== ENCOUNTER 2024-11-29 17:09 | Outpatient (CLI) | payer BC, SELFPAY ==
[2024-11-29 17:20] VITALS: PULSE 66; BMI 37.0
--- OUTSIDE RECORDS SUMMARY | 2024-11-29 17:48 | XMS_ITS | Clinical Summary ---
Author Organization [facility] [address] [place] Address [address] [place] [id number] Care Team Providers Care Java Front End Web Developer Name Role Phone Yamel Major NP Primary Care Provider [phone] Allergies No known active allergies Medications clonazePAM [...] Comments Back pain Back pain; Comme nts: [facility] 06/27/2015 - Family History Medical History [...] on file Legal Sex Female 3:49 AM [employer] Gender Identity Not on file Sexual Orientation [...] patient's age to complete this topic Insurance [facility] CHOICE [employer]US [facility] HMO/PPO Address: [address] [address] [place] [address] Care Teams Java Front End Web Developer Relationship Specialty Start Date End Date Yamel Major NP PCP - General 02/21/20
--- OUTSIDE RECORDS SUMMARY | 2024-11-29 17:48 | XMS_ITS | Continuity of Care Document ---
Author Organization [facility] [place] [place] Address [address] [place] [address] Assessment Encounter Date Assessment Date Assessment LastModified by Organization Details LastModified Time 11/29/2024 11/29/2024 Patient is _35__weeks . Discussed plan. Not available 11/29/2024 18:24:11 Plan of Treatment Reminders Order Date Submit Date Provider Last Modified By Organization Details Last Modified Time Details Appointments U/S OB BPP 2024 03:30P M ULTRASOUND Not available Not available Not available NST 2024 04:00P M NST SCHEDULE Not available Not available Not available POST 2024 04:15P M Mirna Traylor CNM Not available Not available Not available NST 2024 04:00P M NST SCHEDULE Not available Not available Not available U/S OB BPP 2024 04:30P M ULTRASOUND Not available Not available Not available OB ROUTINE 2024 05:00P M Mirna Traylor CNM Not available Not available Not available NST 2024 10:30A M NST SCHEDULE Not available Not available Not available U/S OB BPP 2024 11:00A M ULTRASOUND Not available Not available Not available OB ROUTINE 2024 11:30A M Mirna Traylor CNM Not available Not available Not available U/S OB BPP 2024 08:30A M ULTRASOUND Not available Not available Not available NST 2024 09:00A M NST SCHEDULE Not available Not available Not available OB ROUTINE 2024 09:45A M Mirna Lopezgle, CNM Not available Not available Not available U/S OB BPP 2024 08:30A M ULTRASOUND Not available Not available Not available NST 2024 09:00A M NST SCHEDULE Not available Not available Not available OB ROUTINE 2024 09:30A M Mirna Traylor CNM Not available Not available Not available Lab None recorde d. Referral None recorde d. Procedures None recorde d. Surgeries None recorde d. Imaging None recorde d. Medication Orders None recorde d. Patient TargetsNo targets recorded. Patient InstructionsNo instructions recorded. Reason for Referral None Reported. Results Created Date Observation Date Name Description Value Unit Range Abnormal Flag Note LastModifiedBy Organization Detail LastModifiedTime 06/21/20 24 06/21/2024 US, obste tric, nucha l trans lucen cy No observ ation record ed. [email or web address] [place], [place], [address], 06/21/2024 18:22:27 06/21/20 24 06/21/2024 US, obste tric, follo w-up No observ ation record ed. [email or web address] [address], [place], [address], 06/22/2024 17:30:11 07/24/20 24 07/24/2024 US, obste tric, trans abdom inal + trans vagin al No observ ation record ed. [email or web address] [facility] [place] [address] , [place], [address], 08/18/2024 17:50:21 07/24/20 24 07/24/2024 US, obste tric, trans abdom inal + trans vagin al No observ ation record ed. [email or web address] [facility] [place] [address], [place], [address], 07/25/2024 07:35:37 08/15/19 25 08/15/2024 US, obste tric, limit ed No observ ation record ed. [facility] [address], [place], [address], 08/15/2024 16:34:43 08/15/19 25 08/15/2024 US, obste tric, limit ed No observ ation record ed. [email or web address] [address], [place], [address], 08/15/2024 21:49:01 08/21/19 25 08/21/2024 US, obste tric, trans abdom inal + trans vagin al No observ ation record ed. [address] [facility] [place] [address], [place], [address], 08/23/2024 13:00:24 08/25/19 25 08/25/2024 US, obste tric, trans abdom inal + trans vagin al No observ ation record ed. [address] [facility] [address], [address], 09/13/2024 09:46:05 08/28/19 25 08/28/2024 US, obste tric, trans abdom inal + trans vagin al No observ ation record ed. [address], [address], 08/29/2024 07:26:16 08/28/19 25 08/28/2024 US, obste tric, trans abdom inal + trans vagin al No observ ation record ed. [address], [place], [address], 08/29/2024 07:26:40 09/18/19 25 09/18/2024 US, obste tric, trans abdom inal + trans vagin al No observ ation record ed. [email or web address] [facility] [address], [address], 09/20/2024 17:02:42 09/18/19 25 09/18/2024 US, obste tric, trans abdom inal + trans vagin al No observ ation record ed. [email or web address] [facility] [address], [place], [address], 09/19/2024 22:42:50 10/26/19 25 10/25/2024 US, obste tric, follo w-up No observ ation record ed. [email or web address] [place] [address], [place], [address], 10/25/2024 12:55:16 10/26/19 25 10/25/2024 US, obste tric, follo w-up No observ ation record ed. [address], [place], [address], 10/27/2024 13:40:59 11/10/19 25 11/08/2024 non-s tress test No observ ation record ed. [email or web address] [place] [address], [place], [address], 11/09/2024 09:30:19 11/10/19 25 11/08/2024 non-s tress test No observ ation record ed. [email or web address] [place] [address], [place], [address], 11/09/2024 10:15:59 11/23/19 25 11/22/2024 US, obste tric, follo w-up No observ ation record ed. [email or web address] [place] [address], [place], [address], 11/22/2024 17:08:53 11/23/19 25 11/22/2024 US, obste tric, bioph ysica l profi le + non-s tress test No observ ation record ed. [email or web address] [place] [address], [place], [address], 11/22/2024 17:09:03 11/23/19 25 11/22/2024 US, obste tric, follo w-up No observ ation record ed. [email or web address] [address], [place], [address], 11/23/2024 09:32:24 11/24/19 25 11/23/2024 US, obste tric, trans abdom inal + trans vagin al No observ ation record ed. [email or web address], [place], [address], 11/23/2024 22:08:57 11/28/19 25 11/27/2024 non-s tress test No observ ation record ed. [email or web address] [place] [address], [place], [address], 11/27/2024 22:07:07 11/29/19 US, obste tric, bioph ysica l profi le + non-s tress test No observ ation record ed. [email or web address] [place] [address], [place], [address], 11/28/2024 09:34:08 11/29/19 25 11/28/2024 non-s tress test No observ ation record ed. [email or web address] [place] [id number] [facility] [address], [place], [address], 11/29/2024 12:04:35 11/30/19 25 11/29/2024 US, obste tric, bioph ysica l profi le + non-s tress test No observ ation record ed. [email or web address] [place] [address], [place], [address], 11/29/2024 17:53:07 11/30/19 25 11/29/2024 US, obste tric, bioph ysica l profi le + non-s tress test No observ ation record ed. [email or web address] [address], [place], [address], 11/29/2024 16:58:37 Result Notes None recorded. Problems Name Problem SNOMED Code Status Onset Date Resolution Date Notes Provider Name and Address Organization Details Recorded Time Anxiety 49618662 Active sees mf at [facility] Scheduled 08/21 & 08/28 Level II US and consult 09/18 Level II [facility] 09:46:38 Asthma 778632654 Active 2023 Roya Albrecht [facility] 4 20:15:22 10481341 Active 2023 Roya Albrecht [facility], [facility] 4 19:30:51 Bicornuat e uterus 91061849 Active Yaa Tha [facility] 4 15:42:51 Bicornuat e uterus 45445005 Active Yaa Almazan [facility] 4 15:42:51 Anxiety 85795356 Active sees mfm at [facility] Scheduled 08/21 & 08/28 Level II US and consult 09/18 Level II [facility] Yaa zamora, [facility] 5 09:46:38 Gestation al diabetes mellitus 96788746 Active Checking bs QID and serial growth Insulin 10u @ bedtime on 11/22 antental testing Yaa Almazan sera [facility] 5 22:23:57 Gestation al diabetes mellitus 04364960 Active Checking bs QID and serial growth Insulin 10u @ bedtime on 11/22 antental testing Yaakris Almazan sera [facility] 5 22:23:57 Problem Notes None recorded. Procedures Surgical History Date Name Laterality Status Provider Name and Address Organization Details Recorded Time 4 Date of Last Pap Smear completed Roya Albrecht [facility] 05/24/2024 18:21:00 8 Breast Surgery completed Roya Albrecht [facility] 05/24/2024 20:17:58 Imaging Results None recorded. Procedure Notes None recorded. Medical Equipment None Reported. Allergies Allergen ID Allergen Name Allergen Category Reaction Reaction Severity Criticality Documentation Date Start Date Code Code System Note Provider Name and Address Organization Details Recorded Time 01444 ethinyl estradiol / levonorge strel medicatio n headache moderate Not available 05/24/2024 24863 8 RxNorm Roya Albrecht [facility] 4 20:10:59 Medications Name Sig Start [...] Not Available Not Available Not Available OneTouch Ultra Test strips USE TO TEST BLOOD SUGAR FOUR TIMES DAILY FASTING AND 1 HOUR AFTER MEALS active Not Available Not Available No t Available Crinone 8 % vaginal gel Insert [...] DAILY FASTING AND 1 HOUR AFTER MEALS active Not Available Not Available No t Available albuterol 90 mcg-budeson carolina 80 mcg/actuati on HFA aerosol inhaler 05/24 completed Not Available Not Available Not Available Vitals Date Recorded Body weight Body mass index (BMI) Body height Systolic blood pressure Diastolic blood pressure Provider Name and Address Organization Details Last Updated DateTime 11/29/2024 747113.5 0614 g 38.1 kg/m2 162.56 cm 158 mm[Hg] 89 mm[Hg] Roya Albrecht [facility] 17:37:48 Social History Question Answer Notes LastModified by Organizat ion Details LastModified Time Tobacco Smoking Status Never Smoker Roya Albrecht [facility], [facility] 05/24/2024 20:17:42 What Is Your Level Of Alcohol Consumption? None [email or web address] Information not available 05/24/2024 If You Are , What Was Your Level Of Alcohol Consumption Prior To ? Occasional [email or web address] Information not available 05/24/2024 How Many Years Have You Consumed Alcohol? 8 [email or web address] Information not available 05/24/2024 Are You Blind Or Do You Have Difficulty Seeing? No [email or web address] Information n ot available 05/24/2024 What Is Your Level Of Caffeine Consumption? Moderate [email or web address] Information not available 05/24/2024 In The 14 Days Before Symptom Onset, Have You Had Close Contact With A Laboratory-confirm ed COVID-19 While That Case Was Ill? No [email or web address] Information n ot available 05/24/2024 In The 14 Days Before Symptom Onset, Have You Had Close Contact With A Person Who Is Under Investigation For COVID-19 While That Person Was Ill? No [email or web address] Information not available 05/24/2024 Have You Been To An Area Known To Be High Risk For COVID-19? No [email or web address] Information not available 05/24/2024 Are You Currently Employed? Yes [email or web address] Information not available 10/25/2024 Are You Deaf Or Do You Have Serious Difficulty Hearing? No [email or web address] Information not available 05/24/2024 What Type Of Diet Are You Following? REGULAR Information n ot available 05/24/2024 What Is The Highest Grade Or Level Of School You Have Completed Or The Highest Degree You Have Received? 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 Yes [email or web address] Information not available 05/24/2024 Do You Use Protection During Sex? No [email or web address] Information not available 05/24/2024 Do You Use Your Seat Belt Or Car Seat Routinely? Yes [email or web address] Information not available 05/24/2024 Are You Sexually Active? Yes [email or web address] Information not available 10/25/2024 Do You Have Smoke And Carbon Monoxide Detectors In Your Home? Yes [email or web address] Information not available 05/24/2024 How Much Tobacco Do You Smoke? No [email or web address] Information not available 05/24/2024 Do You Feel Stressed (tense, Restless, Nervous, Or Anxious, Or Unable To Sleep At Night)? [id number] [email or web address] Information not available 05/24/2024 Do You Use Any Illicit Or Recreational Drugs? Yes [email or web address] Information not available 05/24/2024 Do You Use Sunscreen Routinely? No Information not available 05/24/2024 Has Tobacco Cessation Counseling Been Provided? Yes [email or web address] Information not available 05/24/2024 On What Date Was Tobacco Cessation Counseling Provided? 11/29/2024 [email or web address] Information not available 11/29/2024 Have You Used IV Drugs? No [email or web address] Information not available 05/24/2024 Do You Or Have You Ever Used Any Other Forms Of Tobacco Or Nicotine? No Information not available 05/24/2024 Sex: Unknown Functional Status Question Answer Note LastModified by Organizat ion Details LastModified Time Do you have difficulty walking or climbing stairs? No [email or web address] Information not available 05/24/2024 Are you able to walk? YESWOREST [email or web address] Information not available 05/24/2024 Are you able to care for yourself? Yes [email or web address] Information not available 05/24/2024 Do you have difficulty dressing or bathing? No [email or web address] Information not available 05/24/2024 What is your exercise level? Occasional [email or web address] Information not available 05/24/2024 Mental Status None recorded. Family History Relationship Description Onset Age of this Age Resolved Age Notes LastModified by Organization Details LastModified Time Father Diabetes mellitus [email or web address] Not available 05/24 18:21:00 Maternal Grandmother Malignant tumor of breast 60 [email or web address] Not available 05/24 20:17:04 Paternal Uncle Malignant tumor of lung [email or web address] Not available 05/24 20:17:14 Medical History Condition [...] SNOMED-CT Code Diagnosis ICD10 Code Diagnosis Note [id number] Mirna Traylor CNM [place] [address] [address] 11/08/2024 17:13:06 11/08/2024 18:10:37 Gestation period, 32 weeks 5132448 Z3A.32 [id number] Roya Albrecht [place] [address],[place] [address] 11/09/2024 09:01:13 11/09/2024 10:00:50 Gestational diabetes mellitus 74107568 O24.419 [id number] Lenore Hernandez [place] [address] [place] [address] 11/22/2024 15:56:03 11/22/2024 16:36:44 Gestational diabetes mellitus 78607173 O24.414 Z3A.34 [id number] Geoffrey Nguyen MD [place] [address],[place] [address] 11/22/2024 16:24:33 11/23/2024 08:12:21 Routine care 569555678 Z34.83 [id number] Zoë Abebe [place] [address],[place] [address] 11/22/2024 17:14:32 11/28/2024 03:52:01 Gestational diabetes mellitus 80042800 O24.414 Z3A.34 [id number] Lenore Hernandez [place] [address],[place] [address] 11/29/2024 16:30:16 11/29/2024 16:58:05 Gestational diabetes mellitus 47564815 O24.410 Z3A.35 [id number] [facility] [address],[place] [address] 11/29/2024 16:31:05 11/29/2024 18:24:43 Gestation period, 35 weeks 34318828 Z3A.35 Increased blood pressure 74600931 R03.0 Health Concerns Section Related Observation LastModified by Organization Detai ls LastModified Time None Recorded Concern Status LastModified by Organization Details LastModified Time None Recorded Payers Encounter Date Sequence Insurance Name Policy Number Policy Barry Covered Member ID Barry Member ID Guarantor Name 11/29/2024 1 [place] [id number] Briseida Stout [id number] 27 Briseida Stout OBGyn Episode Ob Episode Information Episode Created Date Number of Fetuses Patient Bloodtype Patient rh Status Prepregnancy Weight lbs Domestic Partner Domestic Partner Phone Father Name Founder And Chief Executive Officer Status 06/21/20 24 1 O Positive 202 Nathana el Lovely l OPEN Fetus Data First Name Last Name Admitted to NICU Weight (g) Sex Living Outcome Pediatric Complications Fetus ID Race Codes Race Delivery Type [id number] Problems Problem Notes Problem Name Start Date End Date Resolution Snomed Code Not e Bicornuate uterus 74199882 Anxiety 27750288 sees mfm kristi wyman mercyScheduled 08/21 & 08/28 Level II US and consult 09/18 Level II US [facility] Gestational diabetes mellitus 77413035 Checking bs QID and serial growthInsulin 10u [...] Weight in lbs Pre/Post Dialysis Refused Weight 200.548826440978 BP Diastolic BP Location Tested BP Systolic BP Type 66 137 Fetus Heart Rate Present Fetus Movement A No Comments Patient is having some pain and discharge. reviewed precaution, education, reviewed us bicornuate uterus, to m to for consult, risk of depression/anxiety in and pp. begin routine care Flowsheet Date 07/19/2024 Fields Score Blood Edema Fundus Height Fundus Units Glucose Ketones Leukocytes Nitrite Labor Signs Protein Cervic Dilation Cervic Effacement Cervic Station none Type Weight in lbs Pre/Post Dialysis Refused 203.92444232573 BP Diastolic BP Location Tested BP Systolic [...] Type Weight in lbs Pre/Post Dialysis Refused 208.678904247218 BP Diastolic BP Location Tested BP Systolic BP Type 83 139 Fetus Heart Rate Present A 147 Present Fetus Movement A Yes Comments Patient step son bounce off stomach. Patient states that is having pain and cramping. Patient was seen yesterday and was told everything was okay. US wnl, discussed precautions and education, no FM yet, anterior placenta, has visit with mfm for level 2 next week. discussed plan questions answered Flowsheet Date 08/24/2024 Fields Score Blood Edema Fundus Height Fundus Units Glucose Ketones Leukocytes Nitrite Labor Signs Protein Cervic Dilation Cervic Effacement Cervic Station neg none Type Weight in lbs Pre/Post Dialysis Refused 209.703598998984 BP Diastolic BP Location Tested BP Systolic [...] Type Weight in lbs Pre/Post Dialysis Refused 216.963371407882 BP Diastolic BP Location Tested BP Systolic BP Type 77 122 Fetus Heart Rate Present A 144 Present Fetus Movement A Yes Comments Patient is having some swell ing. precautions and education, +FM, has f/u at [facility], continue pelvic rest, f/u 4 weeks with gct Flowsheet Date 10/11/2024 Fields Score Blood Edema Fundus Height Fundus Units Glucose Ketones Leukocytes Nitrite Labor Signs Protein Cervic Dilation Cervic Effacement Cervic Station neg trace Type Weight in lbs Pre/Post Dialysis Refused 221.968402800949 BP Diastolic BP Location Tested BP Systolic BP Type 82 132 Fetus Heart Rate Present Fetus Movement A Yes Comments patient had rash on thigh an d is having some swelling. reviewed precautions and education +FM, GCT today plan growth, does not have f/u at [facility] scheduled Flowsheet Date 10/25/2024 Fields Score [...] Weight in lbs Pre/Post Dialysis Refused Weight 218.645136455371 BP Diastolic BP Location Tested BP Systolic BP Type 85 L arm 132 sitting Fetus Heart Rate Present A Present Fetus Movement A Yes Comments Patient c/o [facility]. C ontinues on progesterone supplementation. EFW 46%, normal fluid. 3h GTT today. Tdap discussed, declined RSV. Mood stable, anxiety improved. RTC 2 weeks. Flowsheet Date 11/08/2024 Fields Score Blood Edema Fundus Height Fundus Units Glucose Ketones Leukocytes Nitrite Labor Signs Protein Cervic Dilation Cervic Effacement Cervic Station Type Weight in lbs Pre/Post Dialysis Refused Weight 220.392176181685 BP Diastolic BP Location Tested BP Systolic BP Type 83 133 Fetus Heart Rate Present Fetus Movement Comments Flowsheet Date 11/08/2024 Fields Score Blood Edema Fundus Height Fundus Units Glucose Ketones Leukocytes Nitrite Labor Signs Protein Cervic Dilation Cervic Effacement Cervic Station neg none Type Weight in lbs Pre/Post Dialysis Refused Weight 220.639737795520 BP Diastolic BP Location Tested BP Systolic [...] Type Weight in lbs Pre/Post Dialysis Refused 219.798489256145 BP Diastolic BP Location Tested BP Systolic [...] Type Weight in lbs Pre/Post Dialysis Refused 219.447056139810 BP Diastolic BP Location Tested BP Systolic BP Type 80 140 Fetus Heart Rate Present Fetus Movement A Yes Comments Flowsheet Date 11/29/2024 Fields Score Blood Edema Fundus Height Fundus Units Glucose Ketones Leukocytes Nitrite Labor Signs Protein Cervic Dilation Cervic Effacement Cervic Station Type Weight in lbs Pre/Post Dialysis Refused BP Diastolic BP Location Tested BP Systolic BP Type Fetus Heart Rate Present Fetus Movement Comments Flowsheet Date 11/29/2024 Fields Score Blood Edema Fundus Height Fundus Units Glucose Ketones Leukocytes Nitrite Labor Signs Protein Cervic Dilation Cervic Effacement Cervic Station Type Weight in lbs Pre/Post Dialysis Refused BP Diastolic BP Location Tested BP Systolic BP Type Fetus Heart Rate Present Fetus Movement Comments Flowsheet Date 11/29/2024 Fields Score Blood Edema Fundus Height Fundus Units Glucose Ketones Leukocytes Nitrite Labor Signs Protein Cervic Dilation Cervic Effacement Cervic Station neg none Type Weight in lbs Pre/Post Dialysis Refused 222.44152560219 BP Diastolic BP Location Tested BP Systolic BP Type 89 158 Fetus Heart Rate Present Fetus Movement A Yes Comments Patient is having some, cram ping, contractions and had some bleeding on . continue 10 u insulin at hs, bp elevated rpt similar denies headache, visual changes, epigastric pain, to ld for evaluation, +FM Menstrual History Last Menstrual Date Menses Monthly [...]
--- OUTSIDE RECORDS SUMMARY | 2024-11-29 17:49 | XMS_ITS | Clinical Summary ---
Author Organization [facility] Address [address] [place] [address] Phone Care Team Providers Care Fitter Hand Name Role Phone Unavailable Primary Care Provider [...] Data STL ABSTRACTION Provider, Abstract 09/22/2024 Telephone [facility] and [facility] - Medical [place] B [address] [place] [id number] Keanu Pyle MD Needs Appointment 09/18/2024 3:30 PM CRM DYNAMICS DEVELOPER - 09/18/2024 11:59 PM CRM DYNAMICS DEVELOPER Hospital Encounter [facility] [place] [address] [place] [address] Key Coulter MD Discharge Disposition: Home or Self Care 09/06/2024 External Device Data STL ABSTRACTION Provider, Abstract 08/31/2024 External Device Data STL ABSTRACTION Provider, Abstract from Last 3 Months Social History Tobacco [...] Comments Blood Pressure 129/62 08/25/2024 3:00 PM CRM DYNAMICS DEVELOPER Pulse 81 08/25/2024 3:00 PM CRM DYNAMICS DEVELOPER Temperature 36.7 C (98.1 F) 08/25/2024 3:00 PM CRM DYNAMICS DEVELOPER Respiratory Rate 18 08/25/2024 3:00 PM CRM DYNAMICS DEVELOPER Oxygen Saturation 100% 08/25/2024 3:00 PM CRM DYNAMICS DEVELOPER Inhaled Oxygen Concentration - - Weight 95.7 kg (211 lb) 08/25/2024 3:08 PM CRM DYNAMICS DEVELOPER Height - - Body Mass Index - - Plan of Treatment Upcoming Encounters Date Type Department Care Team (Late st Contact Info) Description 12/29/2024 Hospital Encounter [facility] OB Triage [address] [place] [address] Dov Adkins MD [address] [place] [address] Health Maintenance Due Date Last [...] UP PER FETUS Routine 09/18/2024 4:16 PM CRM DYNAMICS DEVELOPER drug exposure (CMS/HCC) Obesity (BMI 30-39.9) Anxiety during Short cervix affecting from Last 3 Months Results * US OB FOLLOW UP PER FETUS (09/18/2024 4:16 PM CRM DYNAMICS DEVELOPER) Anatomical Region Laterality Modality Pelvis Ultrasound 09/18/2024 3:39 PM CRM DYNAMICS DEVELOPER Narrative 09/18/2024 4:15 PM CRM DYNAMICS DEVELOPER STL FOLLOW UP ----- Pat. Name: JORDI STOUT Study Date: 09/18/2024 3:39pm Pat. NO: [id number] Referring MD: COSME CASTANEDA CNM Site: [place] [employer] Maker: Stacy Vargas RDMS : 1995 Age: 29 [...] fetus by drugs O26.872: Cervical shortening Procedures 70301: Ultrasound, uterus, real time with image documentation, [...] 2 lb 0 oz EFW by Hadlock ([id number]) Head / Face / Neck Biometry: Senior Water/Wastewater Engineer 5.2 mm Outer IOD 38.7 mm 24w [...] and date of were verified by the bomb loader prior to the exam IMPRESSION ----- 1. [...] Pat. Name:Chantale STOUT Date:09/18/2024 3:39pm Pat. NO: [id number] MD:COSME CASTANEDA CNM [facility] RDMS :1995Age:29 ----- INDICATION ----- Cervical Shortening, Confirmed Exposure to Medications / Drugs, Suspected Damage to Fetus Asthma Complicating Maternal Obesity (BMI<40) Complicating Anxiety, Maternal CODING ----- Diagnoses Z3A.25: Weeks of gestation O99.342: Other mental disorders complicatingpregnancy O99.212: Obesity complicating O99.512: Diseases of the respiratory systemcomplicating O35.5XX0: Maternal care for (suspected) damage tofetus by drugs O26.872: Cervical shortening Procedures 74274: Ultrasound, uterus, real time withimage documentation, follow up, transabdominal approach per fetus HISTORY ----- OB History 1. Para 0 MATERNAL ASSESSMENT ----- Physical Exam Initial weight 93 kg, 204 lb. Initial BMI 35.02kg/m METHOD ----- Transabdominal ultrasound examination ----- Barboza . Number of fetuses: 1 DATING ----- Cycle:regular cycle GA by prior [id number] w + 3 d BIANCA by prior [...] 2 lb 0 oz EFW by Hadlock ([id number]) Head / Face / Neck Biometry: Senior Water/Wastewater Engineer 5.2mm Outer IOD 38.7 mm 24w 4d [...] and date of were verified by the bomb loader prior tothe exam IMPRESSION ----- 1. Single [...] at 32-36 weeks us Key Coulter MD ORDERABLES Final Result from Last 3 Months Insurance BLUE ACCESS/TRUE BLUE PPO RX [employer] Commercial Advance Directives For more information, please contact: [phone] * Full Code (Latest Code Status on File) Date Activated Date Inactivated Comments 08/25/2024 3:08 PM 08/25/2024 7:38 PM
--- OUTSIDE RECORDS SUMMARY | 2024-11-29 17:49 | XMS_ITS | Continuity of Care Document ---
Author Organization [facility] [place] Address [address] [place] [address] Assessment No assessment recorded. Plan of Treatment Reminders Order Date Submit Date Provider Last Modified By Organization Details Last Modified Time Details Appointments U/S OB BPP 2024 03:30P M ULTRASOUND Not available Not available Not available NST 2024 04:00P M NST SCHEDULE Not available Not available Not available POST 2024 04:15P M GEETHA RomanoM Not available Not available Not available NST [...] Not available OB ROUTINE 2024 09:45A M GEETHA RomanoM Not available Not available Not available U/S OB BPP 2024 08:30A M ULTRASOUND Not available Not available Not available NST 2024 09:00A M NST SCHEDULE Not available Not available Not available OB ROUTINE 2024 09:30A M Mirna Traylor, CNM Not available Not available Not available Lab None recorde d. Referral None recorde d. Procedures None recorde d. Surgeries None recorde d. Imaging US, obstetr ic, biophys ical profile + non-str ess test 2024 025 KENIA [place], [address], [place], [address], 11/29/2024 16:58:37 Medication Orders None recorde d. Patient TargetsNo targets recorded. Patient InstructionsNo instructions recorded. Reason for Referral None Reported. Results Created Date Observation Date Name Description Value Unit Range Abnormal Flag Note LastModifiedBy Organization Detail LastModifiedTime 06/21/20 24 06/21/2024 US, obste tric, nucha l trans lucen cy No observ ation record ed. [email or web address] [place], [place], [address], 06/21/2024 18:22:27 06/21/20 24 06/21/2024 US, obste tric, follo w-up No observ ation record ed. [place] [address], [place], [address], 06/22/2024 17:30:11 07/24/20 24 07/24/2024 US, obste tric, trans abdom inal + trans vagin al No observ ation record ed. [email or web address] [facility] [place] [address], [place], [address], 08/18/2024 17:50:21 07/24/20 24 07/24/2024 US, obste tric, trans abdom inal + trans vagin al No observ ation record ed. [email or web address] [facility] [address], [place], [address], 07/25/2024 07:35:37 08/15/19 25 08/15/2024 US, obste tric, limit ed No observ ation record ed. [facility] [address], [place], [address], 08/15/2024 16:34:43 08/15/19 25 08/15/2024 US, obste tric, limit ed No observ ation record ed. [email or web address] [address] [address], [place], [address], 08/15/2024 21:49:01 08/21/19 25 08/21/2024 US, obste tric, trans abdom inal + trans vagin al No observ ation record ed. [address] [facility] [place] [address], [place], [address], 08/23/2024 13:00:24 08/25/19 25 08/25/2024 US, obste tric, trans abdom inal + trans vagin al No observ ation record ed. [address] [facility] [address], [address], 09/13/2024 09:46:05 08/28/19 25 08/28/2024 US, obste tric, trans abdom inal + trans vagin al No observ ation record ed. [address], [address], 08/29/2024 07:26:16 08/28/19 25 08/28/2024 US, obste tric, trans abdom inal + trans vagin al No observ ation record ed. [address], [address], 08/29/2024 07:26:40 09/18/19 25 09/18/2024 US, obste tric, trans abdom inal + trans vagin al No observ ation record ed. [email or web address] [facility] [address], [place], [address], 09/20/2024 17:02:42 09/18/19 25 09/18/2024 US, obste tric, trans abdom inal + trans vagin al No observ ation record ed. [email or web address] [facility] [address], [place], [address], 09/19/2024 22:42:50 10/26/19 25 10/25/2024 US, obste tric, follo w-up No observ ation record ed. [email or web address] [place] [address], [place], [address], 10/25/2024 12:55:16 10/26/19 25 10/25/2024 US, obste tric, follo w-up No observ ation record ed. [address] [address], [place], [address], 10/27/2024 13:40:59 11/10/19 25 11/08/2024 non-s tress test No observ ation record ed. [email or web address] [place] [address], [place], [address], 11/09/2024 09:30:19 11/10/19 25 11/08/2024 non-s tress test No observ ation record ed. [email or web address] [place] [address], [place], [address], 11/09/2024 10:15:59 11/23/19 25 11/22/2024 US, obste tric, follo w-up No observ ation record ed. [email or web address] [place] [address], [place], [address], 11/22/2024 17:08:53 11/23/19 25 11/22/2024 US, obste tric, bioph ysica l profi le + non-s tress test No observ ation record ed. [email or web address] [place] [address], [place], [address], 11/22/2024 17:09:03 11/23/19 25 11/22/2024 US, obste tric, follo w-up No observ ation record ed. [facility] [address], [place], [address], 11/23/2024 09:32:24 11/24/19 25 11/23/2024 US, sonya tric, trans abdom inal + trans vagin al No observ ation record ed. [address], [place], [address], 11/23/2024 22:08:57 11/28/19 25 11/27/2024 non-s tress test No observ ation record ed. [email or web address] [place] [address], [place], [address], 11/27/2024 22:07:07 11/29/19 US, sonya tric, bioph ysica l profi le + non-s tress test No observ ation record ed. [email or web address] [place] [address], [place], [address], 11/28/2024 09:34:08 11/29/19 25 11/28/2024 non-s tress test No observ ation record ed. [email or web address] [address], [place], [address], 11/29/2024 12:04:35 11/30/19 25 11/29/2024 US, obstgio tric, bioph ysica l profi le + non-s tress test No observ ation record ed. [email or web address] [place] [address], [place], [address], 11/29/2024 17:53:07 11/30/19 25 11/29/2024 US, obste tric, bioph ysica l profi le + non-s tress test No observ ation record ed. [email or web address] [address], [place], [address], 11/29/2024 16:58:37 Result Notes None recorded. Problems Name Problem SNOMED Code Status Onset Date Resolution Date Notes Provider Name and Address Organization Details Recorded Time Anxiety 89032825 Active sees mfm at [facility] Scheduled 08/21 & 08/28 Level II US and consult 09/18 Level II [facility] 09:46:38 Asthma 455155703 Active 2023 Roya Albrecht [facility] 4 20:15:22 70139887 Active 2023 Roya zamora, [facility] 4 19:30:51 Bicornuat e uterus 11656056 Active Yaa Almazan [facility] 4 15:42:51 Bicornuat e uterus 84453448 Active Yaa Almazan [facility] 4 15:42:51 Anxiety 16156034 Active sees mfm at [facility] Scheduled 08/21 & 08/28 Level II US and consult 09/18 Level II [facility] Yaakris Almazan sera [facility] 5 09:46:38 Gestation al diabetes mellitus 19063550 Active Checking bs QID and serial growth Insulin 10u @ bedtime on 11/22 antental testing Yaa Tha zamora [facility] 5 22:23:57 Gestation al diabetes mellitus 61946455 Active Checking bs QID and serial growth Insulin 10u @ bedtime on 11/22 antental testing Yaa Almazan [facility] 5 22:23:57 Problem Notes None recorded. Procedures Surgical History Date Name Laterality Status Provider Name and Address Organization Details Recorded Time 4 Date of Last Pap Smear completed Roya Maystz [facility] 05/24/2024 18:21:00 8 Breast Surgery completed Roya Albrecht [facility] 05/24/2024 20:17:58 Imaging Results Imaging Date Name Status LastModified by Organiz ation Details LastModified Time 11/29/2024 US, obstetric, biophysical profile + non-stress test completed [email or web address] [place] [address], [place], [address], 11/29/2024 17:53:07 Procedure Notes None recorded. Medical Equipment None Reported. Allergies Allergen ID Allergen Name Allergen Category Reaction Reaction Severity Criticality Documentation Date Start Date Code Code System Note Provider Name and Address Organization Details Recorded Time 36081 ethinyl estradiol / levonorge strel medicatio n headache moderate Not available 05/24/2024 32509 8 RxNorm [facility] 20:10:59 Medications Name Sig Start [...] Address Organization Details Last Updated DateTime 11/29/2024 191198.5 0614 g 38.1 kg/m2 162.56 cm 158 mm[Hg] 89 mm[Hg] Roya Albrecht [facility] 17:37:48 Social History Question Answer Notes LastModified by Organizat ion Details LastModified Time Tobacco Smoking Status Never Smoker Roya Albrecht [facility] 05/24/2024 20:17:42 What Is Your Level Of Alcohol Consumption? None [email or web address] Information not available 05/24/2024 If You Are , What Was Your Level Of Alcohol Consumption Prior To ? Occasional [email or web address] Information not available 05/24/2024 How Many Years Have You Consumed Alcohol? 8 [email or web address] Information not available 05/24/2024 Are You Blind Or Do You Have Difficulty Seeing? No [email or web address] Information n ot available 05/24/2024 What Is Your Level Of Caffeine Consumption? Moderate [email or web address] Information not available 05/24/2024 In The 14 Days Before Symptom Onset, Have You Had Close Contact With A Laboratory-confirm ed COVID-19 While That Case Was Ill? No Information n ot available 05/24/2024 In The 14 Days Before Symptom Onset, Have You Had Close Contact With A Person Who Is Under Investigation For COVID-19 While That Person Was Ill? No [email or web address] Information not available 05/24/2024 Have You Been To An Area Known To Be High Risk For COVID-19? No [email or web address] Information not available 05/24/2024 Are You Currently Employed? Yes [email or web address] Information not available 10/25/2024 Are You Deaf Or Do You Have Serious Difficulty Hearing? No [email or web address] Information not available 05/24/2024 What Type Of Diet Are You Following? REGULAR Information n ot available 05/24/2024 What Is The Highest Grade Or Level Of School You Have Completed Or The Highest Degree You Have Received? 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 Yes Information not available 05/24/2024 Do You Use Protection During Sex? No [email or web address] Information not available 05/24/2024 Do You Use Your Seat Belt Or Car Seat Routinely? Yes [email or web address] Information not available 05/24/2024 Are You Sexually Active? Yes Information not available 10/25/2024 Do You Have Smoke And Carbon Monoxide Detectors In Your Home? Yes Information not available 05/24/2024 How Much Tobacco Do You Smoke? No [email or web address] Information not available 05/24/2024 Do You Feel Stressed (tense, Restless, Nervous, Or Anxious, Or Unable To Sleep At Night)? [id number] Information not available 05/24/2024 Do You Use Any Illicit Or Recreational Drugs? Yes [email or web address] Information not available 05/24/2024 Do You Use Sunscreen Routinely? No [email or web address] Information not available 05/24/2024 Has Tobacco Cessation Counseling Been Provided? Yes [email or web address] Information not available 05/24/2024 On What Date Was Tobacco Cessation Counseling Provided? 11/29/2024 [email or web address] Information not available 11/29/2024 Have You Used IV Drugs? No [email or web address] Information not available 05/24/2024 Do You Or Have You Ever Used Any Other Forms Of Tobacco Or Nicotine? No Information not available 05/24/2024 Sex: Unknown Functional Status Question Answer Note LastModified by Organizat ion Details LastModified Time Do you have difficulty walking or climbing stairs? No [email or web address] Information not available 05/24/2024 Are you able to walk? YESWOREST [email or web address] Information not available 05/24/2024 Are you able to care for yourself? Yes [email or web address] Information not available 05/24/2024 Do you have difficulty dressing or bathing? No [email or web address] Information not available 05/24/2024 What is your exercise level? Occasional Information not available 05/24/2024 Mental Status None recorded. Family History Relationship Description Onset Age of this Age Resolved Age Notes LastModified by Organization Details LastModified Time Father Diabetes mellitus [email or web address] Not available 05/24 18:21:00 Maternal Grandmother Malignant tumor of breast 60 [email or web address] Not available 05/24 20:17:04 Paternal Uncle Malignant tumor of lung [email or web address] Not available 05/24 20:17:14 Medical History Condition Response Other N Blood Transfusion N Dermatologic Disorders N Gestational Diabetes Y Anxiety Disorder Y Autoimmune disease N Arthritis N Polyps N Infertility N Acid Reflux (GERD) N Cancer N Varicosities N Stroke N Neurologic/Epilepsy N Fibromyalgia N Headaches Y Kidney Disease N Heart Problems N Kidney or Bladder Problems N Eating Disorder N Art (IVF or FET) N Hepatitis/Liver Disease N No Past Medical History N Urinary Tract Infection N Asthma Y Trauma/Violence N Thrombophilias N Allergies (Food, seasonal, environmental ) Y Breast Cancer N Drug/Latex Allergies/Reactions N Lung Disease N Defects or Inherited Disease N Breast Problem Y Hematologic disorders N Anesthesia Complications N History of STI Y Deep Vein Thrombosis N Polycystic ovary syndrome N History of abnormal pap Y Endometriosis N High Cholesterol N Thyroid Problems N GI Problems N Anemia N Psychiatric Illness N Ovarian Cancer N Diabetes Y Pulmonary (TB, Asthma) N Eczema N Abuse/Domestic Violence N Depression/ depression Y Heart Disease N Pre-Eclampsia N Hypertension N Osteoporosis N Gynecological History Statement/Question Response Abnormal Pap [...] SNOMED-CT Code Diagnosis ICD10 Code Diagnosis Note [id number] Mirna Traylor CNM [place] [address] [address] 11/08/2024 17:13:06 11/08/2024 18:10:37 Gestation period, 32 weeks 6054177 Z3A.32 [id number] Roya Albrecht [place] [address] [address] 11/09/2024 09:01:13 11/09/2024 10:00:50 Gestational diabetes mellitus 62211297 O24.[id number] [facility] [address],[place] [address] 11/22/2024 15:56:03 11/22/2024 16:36:44 Gestational diabetes mellitus 55464231 O24.414 Z3A.34 [id number] Geoffrey Nguyen MD [place] [address] [address] 11/22/2024 16:24:33 11/23/2024 08:12:21 Routine care 928411373 Z34.83 [id number] Zoë Abebe [place] [address] [address] 11/22/2024 17:14:32 11/28/2024 03:52:01 Gestational diabetes mellitus 31887911 O24.414 Z3A.34 [id number] [facility] [address] [address] 11/29/2024 16:30:16 11/29/2024 16:58:05 Gestational diabetes mellitus 14258547 O24.410 Z3A.35 [id number] Mirna Traylor CNM [place] [address] [address] 11/29/2024 16:31:05 11/29/2024 18:24:43 Gestation period, 35 weeks 57539849 Z3A.35 Increased blood pressure 46109971 R03.0 Health Concerns Section Related Observation LastModified by Organization Detai ls LastModified Time None Recorded Concern Status LastModified by Organization Details LastModified Time None Recorded Payers Encounter Date Sequence Insurance Name Policy Number Policy Barry Covered Member ID Barry Member ID Guarantor Name 11/29/2024 1 [place] [id number] Briseida Stout [id number] Briseida Stout OBGyn Episode Ob Episode Information Episode Created Date Number of Fetuses Patient Bloodtype Patient rh Status Prepregnancy Weight lbs Domestic Partner Domestic Partner Phone Father Name Freight Broker Agent Status 06/21/20 24 1 O Positive 202 Nathana el Lovely l OPEN Fetus Data First Name Last Name Admitted to NICU Weight (g) Sex Living Outcome Pediatric Complications Fetus ID Race Codes Race Delivery Type [id number] Problems Problem Notes Problem Name Start Date End Date Resolution Snomed Code Not e Bicornuate uterus 51830725 Anxiety 37293459 sees mfm kristi Whitakercheduled 08/21 & 08/28 Level II US and consult 09/18 Level II US Louisbridgett [facility] Gestational diabetes mellitus 22657981 Checking bs QID and serial growthInsulin 10u [...] Weight in lbs Pre/Post Dialysis Refused Weight 200.181533198316 BP Diastolic BP Location Tested BP Systolic BP Type 66 137 Fetus Heart Rate Present Fetus Movement A No Comments Patient is having some pain and discharge. reviewed precaution, education, reviewed us bicornuate uterus, to [facility] to for consult, risk of depression/anxiety in and pp. begin routine care Flowsheet Date 07/19/2024 Fields Score Blood Edema Fundus Height Fundus Units Glucose Ketones Leukocytes Nitrite Labor Signs Protein Cervic Dilation Cervic Effacement Cervic Station none Type Weight in lbs Pre/Post Dialysis Refused 203.40658274079 BP Diastolic BP Location Tested BP Systolic [...] Type Weight in lbs Pre/Post Dialysis Refused 208.276684945792 BP Diastolic BP Location Tested BP Systolic BP Type 83 139 Fetus Heart Rate Present A 147 Present Fetus Movement A Yes Comments Patient step son bounce off stomach. Patient states that is having pain and cramping. Patient was seen yesterday and was told everything was okay. US wnl, discussed precautions and education, no FM yet, anterior placenta, has visit with [facility] for level 2 next week. discussed plan questions answered Flowsheet Date 08/24/2024 Fields Score Blood Edema Fundus Height Fundus Units Glucose Ketones Leukocytes Nitrite Labor Signs Protein Cervic Dilation Cervic Effacement Cervic Station neg none Type Weight in lbs Pre/Post Dialysis Refused 209.558763651905 BP Diastolic BP Location Tested BP Systolic [...] Type Weight in lbs Pre/Post Dialysis Refused 216.597671716167 BP Diastolic BP Location Tested BP Systolic BP Type 77 122 Fetus Heart Rate Present A 144 Present Fetus Movement A Yes Comments Patient is having some swell ing. precautions and education, +FM, has f/u at [facility], continue pelvic rest, f/u 4 weeks with gct Flowsheet Date 10/11/2024 Fields Score Blood Edema Fundus Height Fundus Units Glucose Ketones Leukocytes Nitrite Labor Signs Protein Cervic Dilation Cervic Effacement Cervic Station neg trace Type Weight in lbs Pre/Post Dialysis Refused 221.717887288144 BP Diastolic BP Location Tested BP Systolic BP Type 82 132 Fetus Heart Rate Present Fetus Movement A Yes Comments patient had rash on thigh an d is having some swelling. reviewed precautions and education +FM, GCT today plan growth, does not have f/u at [facility] scheduled Flowsheet Date 10/25/2024 Fields Score [...] Weight in lbs Pre/Post Dialysis Refused Weight 218.413741991738 BP Diastolic BP Location Tested BP Systolic [...] Weight in lbs Pre/Post Dialysis Refused Weight 220.216776446560 BP Diastolic BP Location Tested BP Systolic BP Type 83 133 Fetus Heart Rate Present Fetus Movement Comments Flowsheet Date 11/08/2024 Fields Score Blood Edema Fundus Height Fundus Units Glucose Ketones Leukocytes Nitrite Labor Signs Protein Cervic Dilation Cervic Effacement Cervic Station neg none Type Weight in lbs Pre/Post Dialysis Refused Weight 220.415746809553 BP Diastolic BP Location Tested BP Systolic [...] Type Weight in lbs Pre/Post Dialysis Refused 219.728660493024 BP Diastolic BP Location Tested BP Systolic [...] Type Weight in lbs Pre/Post Dialysis Refused 219.096818835819 BP Diastolic BP Location Tested BP Systolic [...] Type Weight in lbs Pre/Post Dialysis Refused 222.78748101271 BP Diastolic BP Location Tested BP Systolic [...]
--- OUTSIDE RECORDS SUMMARY | 2024-11-29 17:49 | XMS_ITS | Data Portability ---
Author Organization [facility] [place] Address [address] [place] [address] Assessment Encounter Date Assessment Date Assessment LastModified by Organization Details LastModified Time 11/22/2024 11/22/2024 Patient is ___weeks . Discussed plan. [email or web address] Not available 11/22/2024 17:10:52 11/29/2024 11/29/2024 Patient is _35__weeks . Discussed plan. [email or web address] Not available 11/29/2024 18:24:11 Plan of Treatment [...] available OB ROUTINE 2024 09:45A M Mirna Traylor, CNM Not available Not [...] + non-str ess test 2024 025 KENIA [place], [address], [place], [address], 11/29/2024 16:58:37 US, obstetr ic, follow- up 2024 025 [email or web address] [place], [address], [place], [address], 11/22/2024 17:09:39 US, obstetr ic, biophys ical profile + non-str ess test 2024 025 [email or web address] [address], [address], [place], [address], 11/22/2024 17:09:20 Medication Orders None recorde d. Patient TargetsNo targets recorded. Patient InstructionsNo instructions recorded. Reason for Referral None Reported. Results Created Date Observation Date Name Description Value Unit Range Abnormal Flag Note LastModifiedBy Organization Detail LastModifiedTime 10/26/1910/25/2024 GTT - GESTA JESUS L, 3 HOUR, ACOG glucose, fasting acog 96 mg/dL 70-94 high Not Available [facility] (Lab) [address], [place], [address], 10/26/2024 03:40:15 10/26/19 25 10/25/2024 GTT - GESTA JESUS L, 3 HOUR, ACOG glucose, 1 hour acog 181 mg/dL 70-179 high Not Available [facility] (Lab) [address] [facility], [place], [address], 10/26/2024 03:40:15 10/26/19 25 10/25/2024 GTT - GESTA JESUS L, 3 HOUR, ACOG glucose, 2 hour acog 155 mg/dL 70-154 high Not Available [facility] (Lab) [address] [facility], [place], [address], 10/26/2024 03:40:15 10/26/19 25 10/25/2024 GTT - GESTA JESUS L, 3 HOUR, ACOG glucose, 3 hour acog 138 mg/dL 70-139 Not Available [facility] (Lab) [address] [place], [address], 10/26/2024 03:40:15 10/26/19 25 10/25/2024 US, obste tric, follo w-up No observ ation record ed. [email or web address] [place] [address], [place], [address], 10/25/2024 12:55:16 10/26/19 25 10/25/2024 US, obste tric, follo w-up No observ ation record ed. [email or web address] [facility], [place], [address], 10/27/2024 13:40:59 11/10/19 25 11/08/2024 non-s tress test No observ ation record ed. [email or web address] [place] [address], [place], [address], 11/09/2024 09:30:19 11/10/19 25 11/08/2024 non-s tress test No observ ation record ed. [email or web address] [place] [address], [place], [address], 11/09/2024 10:15:59 11/23/19 25 11/22/2024 US, obste tric, follo w-up No observ ation record ed. [email or web address] [place] [address], [place], [address], 11/22/2024 17:08:53 11/23/19 25 11/22/2024 US, obstgio tric, bioph ysica l profi le + non-s tress test No observ ation record ed. [email or web address] [place] [address], [place], [address], 11/22/2024 17:09:03 11/23/19 25 11/22/2024 US, obste tric, follo w-up No observ ation record ed. [email or web address] [address], [place], [address], 11/23/2024 09:32:24 11/24/19 25 11/23/2024 US, obste tric, trans abdom inal + trans vagin al No observ ation record ed. [email or web address] [facility] [address], [place], [address], 11/23/2024 22:08:57 11/28/19 25 11/27/2024 non-s tress test No observ ation record ed. [email or web address] [place] [address], [place], [address], 11/27/2024 22:07:07 11/29/19 US, obstgio tric, bioph ysica l profi le + non-s tress test No observ ation record ed. [email or web address] [place] [address], [place], [address], 11/28/2024 09:34:08 11/29/19 25 11/28/2024 non-s tress test No observ ation record ed. [address], [place], [address], 11/29/2024 12:04:35 11/30/19 25 11/29/2024 US, obste tric, bioph ysica l profi le + non-s tress test No observ ation record ed. [email or web address] [place] [address], [place], [address], 11/29/2024 17:53:07 11/30/19 25 11/29/2024 US, obste tric, bioph ysica l profi le + non-s tress test No observ ation record ed. [email or web address], [place], [address], 11/29/2024 16:58:37 Result Notes None recorded. Problems Name Problem SNOMED Code Status Onset Date Resolution Date Notes Provider Name and Address Organization Details Recorded Time Anxiety 31106855 Active sees mfm at [facility] Scheduled 08/21 & 08/28 Level II US and consult 09/18 Level II [facility] Yaa zamora [facility] 5 09:46:38 Asthma 050923032 Active 2023 Roya zamora [facility] 4 20:15:22 47808943 Active 2023 Roya zamora [facility] 4 19:30:51 Bicornuat e uterus 75254304 Active Yaa zamora [facility] 4 15:42:51 Bicornuat e uterus 31418375 Active Yaa zamora [facility] 4 15:42:51 Anxiety 93784263 Active sees mfm at [facility] Scheduled 08/21 & 08/28 Level II US and consult 09/18 Level II [facility] Y[facility] 5 09:46:38 Gestation al diabetes mellitus 89507567 Active Checking bs QID and serial growth Insulin 10u @ bedtime on 11/22 antental testing Yaa zamora [facility] 5 22:23:57 Gestation al diabetes mellitus 16970004 Active Checking bs QID and serial growth Insulin 10u @ bedtime on 11/22 antental testing Yaa zamora [facility] 5 22:23:57 Problem Notes None recorded. Procedures Surgical History Date Name Laterality Status Provider Name and Address Organization Details Recorded Time 4 Date of Last Pap Smear completed Roya Albrecht [facility] 05/24/2024 18:21:00 8 Breast Surgery completed Roya Albrecht [facility] 05/24/2024 20:17:58 Imaging Results Imaging Date Name Status LastModified by Organization Details LastModified Time 10/25/2024 US, obstetric, follow-up completed [email or web address] [place] [address], [place], [address], 10/25/2024 12:55:16 10/25/2024 US, obstetric, follow-up completed [address], [place], [address], 10/27/2024 13:40:59 11/08/2024 non-stress test completed [place] [address], [place], [address], 11/09/2024 09:30:19 11/08/2024 non-stress test completed [email or web address] [place] [address], [place], [address], 11/09/2024 10:15:59 11/22/2024 US, obstetric, follow-up completed [email or web address] [place] [address], [place], [address], 11/22/2024 17:08:53 11/22/2024 US, obstetric, biophysical profile + non-stress test completed [email or web address] [place] [address], [place], [address], 11/22/2024 17:09:03 11/22/2024 US, obstetric, follow-up completed [email or web address] [address], [place], [address], 11/23/2024 09:32:24 11/23/2024 US, obstetric, transabdominal + transvaginal completed [email or web address] [address] [facility], [place], [address], 11/23/2024 22:08:57 11/27/2024 non-stress test completed [email or web address] [place] [address], [place], [address], 11/27/2024 22:07:07 11/28/2024 US, obstetric, biophysical profile + non-stress test completed [email or web address] [place] [address], [place], [address], 11/28/2024 09:34:08 11/28/2024 non-stress test active [email or web address] [place] [address] [address], [place], [address], 11/29/2024 12:04:35 11/29/2024 US, obstetric, biophysical profile + non-stress test completed [email or web address] [place] [address], [place], [address], 11/29/2024 17:53:07 11/29/2024 US, obstetric, biophysical profile + non-stress test active [email or web address], [place], [address], 11/29/2024 16:58:37 Procedure Notes None recorded. Medical Equipment None Reported. Allergies Allergen ID Allergen Name Allergen Category Reaction Reaction Severity Criticality Documentation Date Start Date Code Code System Note Provider Name and Address Organization Details Recorded Time 81273 ethinyl estradiol / levonorge strel medicatio n headache moderate Not available 05/24/2024 75481 8 RxNorm Roya Albrecht [facility] [...] Available Vitals Date Recorded Body weight Body weight Systolic blood pressure Diastolic blood pressure Systolic blood pressure Diastolic blood pressure Provider Name and Address Organization Details Last Updated DateTime 5 43309.7 2903 g 61243.7 2903 g 140 mm[Hg] 80 mm[Hg] 140 mm[Hg] 80 mm[Hg] Zoë Abebe [facility] 19:43:34 Date Recorded Body weight Body mass index (BMI) Body height Systolic blood pressure Diastolic blood pressure Provider Name and Address Organization Details Last Updated DateTime 11/29/2024 580812.5 0614 g 38.1 kg/m2 162.56 cm 158 mm[Hg] 89 mm[Hg] Roya Albrecht [facility] 17:37:48 Social History Question Answer Notes LastModified by Organizat ion Details LastModified Time Tobacco Smoking Status Never Smoker Roya Albrecht [facility], [facility] 05/24/2024 20:17:42 What Is Your Level Of Alcohol Consumption? None [email or web address] Information not available 05/24/2024 If You Are , What Was Your Level Of Alcohol Consumption Prior To ? Occasional [email or web address] Information not available 05/24/2024 How Many Years Have You Consumed Alcohol? 8 Information not available 05/24/2024 Are You Blind Or Do You Have Difficulty Seeing? No [email or web address] Information n ot available 05/24/2024 What Is Your Level Of Caffeine Consumption? Moderate [email or web address] Information not available 05/24/2024 In The 14 Days Before Symptom Onset, Have You Had Close Contact With A Laboratory-confirm ed COVID-19 While That Case Was Ill? No [email or web address] Information n ot available 05/24/2024 In The 14 Days Before Symptom Onset, Have You Had Close Contact With A Person Who Is Under Investigation For COVID-19 While That Person Was Ill? No [email or web address] Information not available 05/24/2024 Have You Been To An Area Known To Be High Risk For COVID-19? No [email or web address] Information not available 05/24/2024 Are You Currently Employed? Yes Information not available 10/25/2024 Are You Deaf Or Do You Have Serious Difficulty Hearing? No [email or web address] Information not available 05/24/2024 What Type Of Diet Are You Following? REGULAR [email or web address] Information n ot available 05/24/2024 What Is The Highest Grade Or Level Of School You Have Completed Or The Highest Degree You Have Received? 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 Yes [email or web address] Information not available 05/24/2024 Do You Use Protection During Sex? No [email or web address] Information not available 05/24/2024 Do You Use Your Seat Belt Or Car Seat Routinely? Yes [email or web address] Information not available 05/24/2024 Are You Sexually Active? Yes [email or web address] Information not available 10/25/2024 Do You Have Smoke And Carbon Monoxide Detectors In Your Home? Yes [email or web address] Information not available 05/24/2024 How Much Tobacco Do You Smoke? No [email or web address] Information not available 05/24/2024 Do You Feel Stressed (tense, Restless, Nervous, Or Anxious, Or Unable To Sleep At Night)? [id number] Information not available 05/24/2024 Do You Use Any Illicit Or Recreational Drugs? Yes [email or web address] Information not available 05/24/2024 Do You Use Sunscreen Routinely? No [email or web address] Information not available 05/24/2024 Has Tobacco Cessation Counseling Been Provided? Yes [email or web address] Information not available 05/24/2024 On What Date Was Tobacco Cessation Counseling Provided? 11/29/2024 [email or web address] Information not available 11/29/2024 Have You Used IV Drugs? No [email or web address] Information not available 05/24/2024 Do You Or Have You Ever Used Any Other Forms Of Tobacco Or Nicotine? No [email or web address] Information not available 05/24/2024 Sex: Unknown Functional Status Question Answer Note LastModified by Organizat ion Details LastModified Time Do you have difficulty walking or climbing stairs? No [email or web address] Information not available 05/24/2024 Are you able to walk? YESWOREST [email or web address] Information not available 05/24/2024 Are you able to care for yourself? Yes [email or web address] Information not available 05/24/2024 Do you have difficulty dressing or bathing? No [email or web address] Information not available 05/24/2024 What is your exercise level? Occasional [email or web address] Information not available 05/24/2024 Mental Status None recorded. Family History Relationship Description Onset Age of this Age Resolved Age Notes LastModified by Organization Details LastModified Time Father Diabetes mellitus [email or web address] Not available 05/24 18:21:00 Maternal Grandmother Malignant tumor of breast 60 [email or web address] Not available 05/24 20:17:04 Paternal Uncle Malignant tumor of lung [email or web address] Not available 05/24 20:17:14 Medical History Condition [...] SNOMED-CT Code Diagnosis ICD10 Code Diagnosis Note [id number] Lenore David [place] [address],[place] [address] 05/24/2024 16:32:42 05/24/2024 17:47:12 [id number] Mirna Traylor [facility] [address],[facility] [place] [address] 05/24/2024 16:33:03 05/25/2024 09:42:07 Amenorrhea 03286297 N91.2 pap not collected, records release signedasth ma-inhaler as neededPNV dailywill talk to dr. turner about clonazepam , will await her answer, only use as necessary prn usereviewe d office, precaution s and education plan 12 week new ob and first look with nipt Venereal d isease screening 731762759 Z11.3 Anxiety 47171142 F41.[address] [facility] [address],[place] [address] 06/21/2024 17:33:21 06/22/2024 02:59:39 screening 620406117 Z36.82 Z3A.12 [id number] [facility] [address],[place] [address] 06/21/2024 17:34:12 06/23/2024 12:41:54 Gestation period, 13 weeks 25631577 Z3A.13 Routine an tenatal care 043823326 Z34.90 [id number] Mirna Traylor [facility] [address],[place] [address] 07/19/2024 17:12:06 07/19/2024 17:48:43 [id number] [facility] [address],[place] [address] 08/15/2024 14:26:05 08/15/2024 15:13:27 Abdominal pain in 528965520 O99.891 Z3A.21 225115 Mirna Traylor [facility] [address],[place] [address] 08/16/2024 14:58:53 08/16/2024 16:21:44 Gestation period, 21 weeks 33085198 Z3A.21 [id number] [facility] [address],[place] [address] 08/24/2024 08:55:14 08/24/2024 10:27:52 Short cervical length in 850187270 O26.879 discussed and reviewed us, cerclage, progestero ne, f/u mfm and await rec [id number] Mirna Traylor CNM [place] [address] [address] 09/13/2024 16:44:22 09/13/2024 17:26:56 Gestation period, 24 weeks 111693652 Z3A.24 [id number] [facility] [address],[place] [address] 10/11/2024 16:47:58 10/11/2024 17:43:19 Gestation period, 28 weeks 53699466 Z3A.28 [id number] Bree Staton [place] [address],[place] [address] 10/25/2024 09:05:30 10/25/2024 10:51:00 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 Z3A.30 [id number] JAIR TURNER MD [place] [address],[place] [address] 10/25/2024 09:05:58 10/25/2024 12:13:25 Routine care 619114956 Z34.03 [id number] Mirna Traylor [facility] [address],[place] [address] 11/08/2024 17:13:06 11/08/2024 18:10:37 Gestation period, 32 weeks 1117977 Z3A.32 [id number] Roya Albrecht [place] [address],[place] [address] 11/09/2024 09:01:13 11/09/2024 10:00:50 Gestational diabetes mellitus 27701104 O24.419 [id number] Lenore Hernandez [place] [address],[place] [address] 11/22/2024 15:56:03 11/22/2024 16:36:44 Gestational diabetes mellitus 95118580 O24.414 Z3A.34 [id number] Geoffrey Nguyen MD [place] [address],[place] [address] 11/22/2024 16:24:33 11/23/2024 08:12:21 Routine care 295038030 Z34.83 [id number] Zoë Abebe [place] [address],[place] [address] 11/22/2024 17:14:32 11/28/2024 03:52:01 Gestational diabetes mellitus 39896848 O24.414 Z3A.34 [id number] Lenore Hernandez [place] [address] [address] 11/29/2024 16:30:16 11/29/2024 16:58:05 Gestational diabetes mellitus 23630453 O24.410 Z3A.35 [id number] [facility]GE[facility]HA [facility] [address] [address] 11/29/2024 16:31:05 11/29/2024 18:24:43 Gestation period, 35 weeks 34942885 Z3A.35 Increased blood pressure 97084091 R03.0 Health Concerns Section Related Observation LastModified by Organization Detai ls LastModified Time None Recorded Concern Status LastModified by Organization Details LastModified Time None Recorded Advance Directives Directive None Recorded Payers Encounter Date Sequence Insurance Name Policy Number Policy Barry Covered Member ID Barry Member ID Guarantor Name 11/22/2024 1 [id number] Radeana Gentzyel [id number] Radeana M Gentzyel 11/22/2024 1 [place] [id number] Radeana Gentzyel [id number] Radeana M Gentzyel 11/29/2024 1 [place] [id number] Radeana Gentzyel [id number] Radeana M Gentzyel 11/29/2024 1 [place] [id number] Radeana Gentzyel [id number] 27 Radeana M Gentzyel OBGyn Episode Ob Episode Information Episode Created Date Number of Fetuses Patient Bloodtype Patient rh Status Prepregnancy Weight lbs Domestic Partner Domestic Partner Phone Father Name Mop Maker Status 06/21/20 24 1 O Positive 202 Nathana el Gentzhenye l OPEN Fetus Data First Name Last Name Admitted to NICU Weight (g) Sex Living Outcome Pediatric Complications Fetus ID Race Codes Race Delivery Type [id number] Problems Problem Notes Problem Name Start Date End Date Resolution Snomed Code Not e Bicornuate uterus 14323375 Anxiety 25648527 sees mfm a t mercyScheduled 08/21 & 08/28 Level II US and consult 09/18 Level II US [facility] Gestational diabetes mellitus 09333175 Checking bs QID and serial growthInsulin 10u [...] Weight in lbs Pre/Post Dialysis Refused Weight 200.523270484057 BP Diastolic BP Location Tested BP Systolic [...] Type Weight in lbs Pre/Post Dialysis Refused 203.27775549290 BP Diastolic BP Location Tested BP Systolic [...] Type Weight in lbs Pre/Post Dialysis Refused 208.115437883978 BP Diastolic BP Location Tested BP Systolic BP Type 83 139 Fetus Heart Rate Present A 147 Present Fetus Movement A Yes Comments Patient step son bounce off stomach. Patient states that is having pain and cramping. Patient was seen yesterday and was told everything was okay. US wnl, discussed precautions and education, no FM yet, anterior placenta, has visit with [facility] for level 2 next week. discussed plan questions answered Flowsheet Date 08/24/2024 Fields Score Blood Edema Fundus Height Fundus Units Glucose Ketones Leukocytes Nitrite Labor Signs Protein Cervic Dilation Cervic Effacement Cervic Station neg none Type Weight in lbs Pre/Post Dialysis Refused 209.355550337474 BP Diastolic BP Location Tested BP Systolic [...] Type Weight in lbs Pre/Post Dialysis Refused 216.760915237324 BP Diastolic BP Location Tested BP Systolic BP Type 77 122 Fetus Heart Rate Present A 144 Present Fetus Movement A Yes Comments Patient is having some swell ing. precautions and education, +FM, has f/u at [facility], continue pelvic rest, f/u 4 weeks with gct Flowsheet Date 10/11/2024 Fields Score Blood Edema Fundus Height Fundus Units Glucose Ketones Leukocytes Nitrite Labor Signs Protein Cervic Dilation Cervic Effacement Cervic Station neg trace Type Weight in lbs Pre/Post Dialysis Refused 221.538937053717 BP Diastolic BP Location Tested BP Systolic BP Type 82 132 Fetus Heart Rate Present Fetus Movement A Yes Comments patient had rash on thigh an d is having some swelling. reviewed precautions and education +FM, GCT today plan growth, does not have f/u at [facility] scheduled Flowsheet Date 10/25/2024 Fields Score Blood [...] Weight in lbs Pre/Post Dialysis Refused Weight 218.130632640319 BP Diastolic BP Location Tested BP Systolic BP Type 85 L arm 132 sitting Fetus Heart Rate Present A Present Fetus Movement A Yes Comments Patient c/o [place]. C ontinues on progesterone supplementation. EFW 46%, normal fluid. 3h GTT today. Tdap discussed, declined RSV. Mood stable, anxiety improved. RTC 2 weeks. Flowsheet Date 11/08/2024 Fields Score Blood Edema Fundus Height Fundus Units Glucose Ketones Leukocytes Nitrite Labor Signs Protein Cervic Dilation Cervic Effacement Cervic Station Type Weight in lbs Pre/Post Dialysis Refused Weight 220.586852171298 BP Diastolic BP Location Tested BP Systolic BP Type 83 133 Fetus Heart Rate Present Fetus Movement Comments Flowsheet Date 11/08/2024 Fields Score Blood Edema Fundus Height Fundus Units Glucose Ketones Leukocytes Nitrite Labor Signs Protein Cervic Dilation Cervic Effacement Cervic Station neg none Type Weight in lbs Pre/Post Dialysis Refused Weight 220.755640673142 BP Diastolic BP Location Tested BP Systolic [...] Type Weight in lbs Pre/Post Dialysis Refused 219.639205618249 BP Diastolic BP Location Tested BP Systolic [...] Type Weight in lbs Pre/Post Dialysis Refused 219.569968234840 BP Diastolic BP Location Tested BP Systolic [...] Type Weight in lbs Pre/Post Dialysis Refused 222.77732268723 BP Diastolic BP Location Tested BP Systolic [...]
--- OUTSIDE RECORDS SUMMARY | 2024-11-29 17:49 | XMS_ITS | Referral Summary ---
Author Organization [facility] [address] Address [address] [place] [address] Care Team Providers Care Analytic Manager Name Role Phone Yamel Major NP Primary Care Provider [phone] Allergies No known active allergies Medications clonazePAM [...] on file Legal Sex Female 3:49 AM [facility] Gender Identity Not on file Sexual Orientation [...] Plan of Treatment Not on file Insurance [facility] [place] [address] [facility] Care Teams Analytic Manager Relationship Specialty Start Date End Date Yamel Major NP PCP - General 02/21/20
[2024-11-29 18:01] VITALS: BP 144/89; PULSE 80
[2024-11-29 18:01] LABS: Basophils Percent Auto 0.3 % (0.2-1.2); Eosinophils Absolute Auto 0.1 K/mm3 (0-0.3); Eosinophils Percent Auto 0.5 % (0-4.4); Hematocrit 34.9 % (37.0-47.0); Hemoglobin 11.6 g/dL (12.0-15.0); Immature Granulocyte Absolute 0.05 K/mm3 (0.00-0.031); Immature Granulocyte Percent A 0.4 % (0-0.5); Lymphocytes Absolute Auto 2.81 K/mm3 (0.9-3.2); Lymphocytes Percent Auto 22.3 % (18.3-44.2); Mean Corpuscular HGB Conc 33.2 g/dl (32-36); Mean Corpuscular Hemoglobin 29.7 pg (26-34); Mean Corpuscular Volume 89.5 fl (80-100); Mean Platelet Volume 10.5 fl (7.4-10.4); Monocytes Absolute Auto 1.1 K/mm3 (0.1-0.6); Monocytes Percent Auto 8.6 % (2.6-8.5); Neutrophils Absolute Auto 8.6 K/mm3 (1.3-6.7); Neutrophils Percent Auto 67.9 % (45.5-73.1); Platelet Count Result 252 k/mm3 (150-375); Red Cell Distribution Width 13.3 % (11.5-14.5); White Blood Count 12.6 K/mm3 (4.5-10.0)
[2024-11-29 18:02] LABS: Add Urine Microscopic? YES; Appearance Urine Clear (Clear); Bacteria Urine Rare /hpf; Bilirubin Urine Negative (Negative); Blood Urine 3+ (Negative); Color Urine Yellow (Yellow); Glucose Urine UA Negative (Negative); Ketones Urine Negative (Negative); Leukocyte Esterase Ur 1+ LEU/UL (Negative); Nitrate Urine Negative (Negative); Non Pathogenic Casts 0-2; Protein Urine Negative (Negative); RBC Urine 21-50 /hpf (0-2); Specific Grav Ur 1.012 (1.001-1.035); Squamous Epithelial Cell Urine Occasional /hpf (Few); Urobilinogen Urine 0.2 mg/dL (<2.0); WBC Urine 21-50 /hpf (0-3)
[2024-11-29 18:11] LABS: Alanine Aminotransferase 13 U/L (6-35); Alkaline Phosphatase 146 U/L (38-126); Anion Gap 13 mmol/L (4-12); Aspartate Amino Transferase 20 U/L (14-36); Bilirubin,Total 0.2 mg/dL (0.2-1.3); Blood Urea Nitrogen 9 mg/dL (7-17); Calcium 9.2 mg/dL (8.4-10.2); Carbon Dioxide 16 mmol/L (22-30); Chloride 106 mmol/L (98-107); Estimated CRCL calculation 190 ml/min; Estimated Glomerular Filt Rate > 60; Glucose 83 mg/dL (65-110); Potassium 3.9 mmol/L (3.4-5.0); Sodium 135 mmol/L (137-145); Uric Acid 4.7 mg/dL (2.5-7.5)
[2024-11-29 18:16] VITALS: BP 129/74; PULSE 69
[2024-11-29 18:19] LABS: Creatinine Urine 45.9 mg/dL; Total Protein Urine Random 19 mg/dL; Ur Ttl Prot Creatinine Ratio 0.41 mg/mg (0-0.20)
--- NOTE | 2024-11-29 18:20 | PC.NURSE ---
Stephanie Traylor CNM on unit, reviews labs, tracing, and blood pressure.
--- NOTE | 2024-11-29 18:24 | PC.NURSE ---
Addendum entered by Stella Ivey RN 11/29/24 20:03: Orders received to discharge pt with instructions for 24 hour urine collection, keep next scheduled appointment, and when to return to the unit. Original Note: Stephanie Traylor CNM at bedside, discusses plan of care with pt to collect 24 hour urine, induction scheduled for next week, 12/07 at 37 weeks.
[2024-11-29 18:36] VITALS: BP 156/75; PULSE 80
--- NOTE | 2024-11-29 18:51 | PC.NURSE ---
Pt discharged with instructions for 24 hour urine collection, keep next scheduled appointment, and when to return to the unit, pt verbalizes understanding.
== END 2024-11-29 18:51 | disposition home or self-care (01) ==
LOC: ANHOBOP 17:13 → ANHLDR 17:50
PROVIDERS: Visit Provider Advanced Practice Midwife
DX: O13.9 Gestational [pregnancy-induced] hypertension without significant proteinuria, unspecified trimester (principal); Z3A.00 Weeks of gestation of pregnancy not specified
CPT/HCPCS: 36415; 59025; 80053; 81001; 82570; 84156; 84550; 85025; 87086; 99199

== ENCOUNTER 2024-11-30 10:24 | Outpatient (NON) | payer BC, SELFPAY ==
--- OUTSIDE RECORDS SUMMARY | 2024-11-30 18:32 | XMS_ITS | Continuity of Care Document ---
Author Organization [facility] Address [address] [place] [address] Assessment No assessment recorded. Plan of Treatment Reminders Order Date Submit Date Provider Last Modified By Organization Details Last Modified Time Details Appointments NST 2024 04:00P M NST SCHEDULE Not available Not available Not available U/S OB BPP 2024 04:30P M ULTRASOUND Not available Not available Not available OB ROUTINE 2024 05:00P M GEETHA RomanoM Not available Not available [...] available OB ROUTINE 2024 09:45A M Mirna Traylor CNM Not available Not [...] + non-str ess test 2024 025 [email or web address] [facility], [address], [address], [place], [address], 11/30/2024 10:19:18 Medication Orders None recorde d. Patient TargetsNo targets recorded. Patient InstructionsNo instructions recorded. Reason for Referral None Reported. Results Created Date Observation Date Name Description Value Unit Range Abnormal Flag Note LastModifiedBy Organization Detail LastModifiedTime 06/21/20 24 06/21/2024 US, obste tric, nucha l trans lucen cy No observ ation record ed. [email or web address] [facility] [address], [place], [address], 06/21/2024 18:22:27 06/21/20 24 06/21/2024 US, obste tric, follo w-up No observ ation record ed. [email or web address] [address], [place], [address], 06/22/2024 17:30:11 07/24/20 24 07/24/2024 US, obste tric, trans abdom inal + trans vagin al No observ ation record ed. [email or web address] [facility] [address] [facility], [place], [address], 08/18/2024 17:50:21 07/24/20 24 07/24/2024 US, obste tric, trans abdom inal + trans vagin al No observ ation record ed. [email or web address] [facility] [address], [place], [address], 07/25/2024 07:35:37 08/15/19 25 08/15/2024 US, obste tric, limit ed No observ ation record ed. [email or web address] [facility] [address], [place], [address], 08/15/2024 16:34:43 08/15/19 25 08/15/2024 US, obste tric, limit ed No observ ation record ed. [email or web address] [address], [place], [address], 08/15/2024 21:49:01 08/21/19 25 08/21/2024 US, obste tric, trans abdom inal + trans vagin al No observ ation record ed. [address] [facility] [address], [place], [address], 08/23/2024 13:00:24 08/25/19 25 08/25/2024 US, obste tric, trans abdom inal + trans vagin al No observ ation record ed. [address] [facility] [place] [id number] [facility], [place], [address], 09/13/2024 09:46:05 08/28/19 25 08/28/2024 US, obste tric, trans abdom inal + trans vagin al No observ ation record ed. [address] [facility] [place] [address] [place], [address], 08/29/2024 07:26:16 08/28/19 25 08/28/2024 US, obste tric, trans abdom inal + trans vagin al No observ ation record ed. [address], [place], [address], 08/29/2024 07:26:40 09/18/19 25 09/18/2024 US, obste tric, trans abdom inal + trans vagin al No observ ation record ed. [email or web address] [facility] [place] [address] [place], [address], 09/20/2024 17:02:42 09/18/19 25 09/18/2024 US, obste tric, trans abdom inal + trans vagin al No observ ation record ed. [email or web address] [facility] [address], [place], [address], 09/19/2024 22:42:50 10/26/19 25 10/25/2024 US, obste tric, follo w-up No observ ation record ed. [email or web address] [facility] [address], [place], [address], 10/25/2024 12:55:16 10/26/19 25 10/25/2024 US, obste tric, follo w-up No observ ation record ed. [email or web address] [address], [place], [address], 10/27/2024 13:40:59 11/10/19 25 11/08/2024 non-s tress test No observ ation record ed. [email or web address] [facility] [address], [place], [address], 11/09/2024 09:30:19 11/10/1911/08/2024 non-s tress test No observ ation record ed. [email or web address] [facility] [address], [place], [address], 11/09/2024 10:15:59 11/23/19 25 11/22/2024 US, obste tric, follo w-up No observ ation record ed. [email or web address] [facility] [address], [place], [address], 11/22/2024 17:08:53 11/23/19 25 11/22/2024 US, obste tric, bioph ysica l profi le + non-s tress test No observ ation record ed. [email or web address] [facility] [address], [place], [address], 11/22/2024 17:09:03 11/23/19 25 11/22/2024 US, obste tric, follo w-up No observ ation record ed. [email or web address] [address], [place], [address], 11/23/2024 09:32:24 11/24/19 25 11/23/2024 US, obste tric, trans abdom inal + trans vagin al No observ ation record ed. [email or web address] [address], [place], [address], 11/23/2024 22:08:57 11/28/19 25 11/27/2024 non-s tress test No observ ation record ed. [email or web address] [facility] [address], [place], [address], 11/27/2024 22:07:07 11/29/19 US, obste tric, bioph ysica l profi le + non-s tress test No observ ation record ed. [email or web address] [facility] [address], [place], [address], 11/28/2024 09:34:08 11/29/19 25 11/28/2024 non-s tress test No observ ation record ed. [email or web address] [facility] [address], [place], [address], 11/30/2024 09:16:00 11/30/19 25 11/29/2024 US, obste tric, bioph ysica l profi le + non-s tress test No observ ation record ed. [email or web address] [facility] [address], [place], [address], 11/29/2024 17:53:07 11/30/19 25 11/29/2024 US, obste tric, bioph ysica l profi le + non-s tress test No observ ation record ed. [email or web address] [address], [place], [address], 11/30/2024 08:57:43 11/30/19 25 11/29/2024 non-s tress test No observ ation record ed. [email or web address] [facility] [address], [place], [address], 11/29/2024 20:30:32 11/30/19 25 US, obste tric, bioph ysica l profi le + non-s tress test No observ ation record ed. [facility] [address], [place], [address], 11/29/2024 20:38:26 12/01/19 25 11/30/2024 imagi ng/di agnos tic resul t No observ ation record ed. [facility] [address], [place], [address], 11/30/2024 17:25:17 Result Notes None recorded. Problems Name Problem SNOMED Code Status Onset Date Resolution Date Notes Provider Name and Address Organization Details Recorded Time Anxiety 80892807 Active sees mfm at [facility] Scheduled 08/21 & 08/28 Level II and consult 09/18 Level II [facility] Yaa zamora [facility] 5 09:46:38 Asthma 662128592 Active 2023 Roya zamora [facility] 4 20:15:22 88243390 Active 2023 Roya zamora [facility] 4 19:30:51 Bicornuat e uterus 82316734 Active Yaa zamora [facility] 4 15:42:51 Bicornuat e uterus 09127762 Active Yaa zamora [facility] 4 15:42:51 Anxiety 88828989 Active sees mfm at [facility] Scheduled 08/21 & 08/28 Level II US and consult 09/18 Level II US [facility] MFM Yaa zamora [facility] 5 09:46:38 Gestation al diabetes mellitus 22111066 Active Checking bs QID and serial growth Insulin 10u @ bedtime on 11/22 antental testing Yaa zamora [facility] 5 22:23:57 Gestation al diabetes mellitus 95744429 Active Checking bs QID and serial growth Insulin 10u @ bedtime on 11/22 antental testing [facility] 22:23:57 Problem Notes None recorded. Procedures Surgical History Date Name Laterality Status Provider Name and Address Organization Details Recorded Time 4 Date of Last Pap Smear completed Roya Albrecht [facility] 05/24/2024 18:21:00 8 Breast Surgery completed Roya Albrecht [facility] 05/24/2024 20:17:58 Imaging Results Imaging Date Name Status LastModified by Organiz ation Details LastModified Time 11/29/2024 US, obstetric, biophysical profile + non-stress test [email or web address] [address], [place], [address], 11/29/2024 17:53:07 Procedure Notes None recorded. Medical Equipment None Reported. Allergies Allergen ID Allergen Name Allergen Category Reaction Reaction Severity Criticality Documentation Date Start Date Code Code System Note Provider Name and Address Organization Details Recorded Time 26302 ethinyl estradiol / levonorge strel medicatio n headache moderate Not available 05/24/2024 47601 8 RxNorm Roya Albrecht [facility] 4 20:10:59 Medications Name Sig Start [...] weight Body mass index (BMI) Body height Body height Body mass index (BMI) Body weight Systolic blood pressure Diastolic blood pressure Systolic blood pressure Diastolic blood pressure Provider Name and Address Organization Details Last Updated DateTime 5 722691. 51135 g 38.1 kg/m2 162.56 cm 162.56 cm 38.1 kg/m2 907035. 51 g 158 mm[Hg] 89 mm[Hg] 158 mm[Hg] 89 mm[Hg] Roya Albrecht [facility] 20:27:33 Social History Question Answer Notes LastModified by Organizat ion Details LastModified Time Tobacco Smoking Status Never Smoker Roya Albrecht [facility], [facility] 05/24/2024 20:17:42 What Is Your Level Of Alcohol Consumption? None [email or web address] Information not available 05/24/2024 If You Are , What Was Your Level Of Alcohol Consumption Prior To ? Occasional [email or web address] Information not available 05/24/2024 How Many Years Have You Consumed Alcohol? 8 [email or web address] Information not available 05/24/2024 Are You Blind Or Do You Have Difficulty Seeing? No Information n ot available 05/24/2024 What Is Your Level Of Caffeine Consumption? Moderate [email or web address] Information not available 05/24/2024 In The 14 Days Before Symptom Onset, Have You Had Close Contact With A Laboratory-confirm ed COVID-19 While That Case Was Ill? No [email or web address] Information n ot available 05/24/2024 In The 14 Days Before Symptom Onset, Have You Had Close Contact With A Person Who Is Under Investigation For COVID-19 While That Person Was Ill? No [email or web address] Information not available 05/24/2024 Have You Been To An Area Known To Be High Risk For COVID-19? No [email or web address] Information not available 05/24/2024 Are You Currently Employed? Yes [email or web address] Information not available 10/25/2024 Are You Deaf Or Do You Have Serious Difficulty Hearing? No [email or web address] Information not available 05/24/2024 What Type Of Diet Are You Following? REGULAR [email or web address] Information n ot available 05/24/2024 What Is The Highest Grade Or Level Of School You Have Completed Or The Highest Degree You Have Received? 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 Yes [email or web address] Information not available 05/24/2024 Do You Use Protection During Sex? No [email or web address] Information not available 05/24/2024 Do You Use Your Seat Belt Or Car Seat Routinely? Yes [email or web address] Information not available 05/24/2024 Are You Sexually Active? Yes Information not available 10/25/2024 Do You Have Smoke And Carbon Monoxide Detectors In Your Home? Yes [email or web address] Information not available 05/24/2024 How Much Tobacco Do You Smoke? No [email or web address] Information not available 05/24/2024 Do You Feel Stressed (tense, Restless, Nervous, Or Anxious, Or Unable To Sleep At Night)? AP92030-9 [email or web address] Information not available 05/24/2024 Do You Use Any Illicit Or Recreational Drugs? Yes Information not available 05/24/2024 Do You Use Sunscreen Routinely? No [email or web address] Information not available 05/24/2024 Has Tobacco Cessation Counseling Been Provided? Yes Information not available 05/24/2024 On What Date Was Tobacco Cessation Counseling Provided? 11/29/2024 [email or web address] Information not available 11/29/2024 Have You Used IV Drugs? No [email or web address] Information not available 05/24/2024 Do You Or Have You Ever Used Any Other Forms Of Tobacco Or Nicotine? No [email or web address] Information not available 05/24/2024 Sex: Unknown Functional Status Question Answer Note LastModified by Organizat ion Details LastModified Time Do you have difficulty walking or climbing stairs? No [email or web address] Information not available 05/24/2024 Are you able to walk? YESWOREST [email or web address] Information not available 05/24/2024 Are you able to care for yourself? Yes [email or web address] Information not available 05/24/2024 Do you have difficulty dressing or bathing? No Information not available 05/24/2024 What is your exercise level? Occasional [email or web address] Information not available 05/24/2024 Mental Status None recorded. Family History Relationship Description Onset Age of this Age Resolved Age Notes LastModified by Organization Details LastModified Time Father Diabetes mellitus [email or web address] Not available 05/24 18:21:00 Maternal Grandmother Malignant tumor of breast 60 [email or web address] Not available 05/24 20:17:04 Paternal Uncle Malignant tumor of lung [email or web address] Not available 05/24 20:17:14 Medical History Condition [...] SNOMED-CT Code Diagnosis ICD10 Code Diagnosis Note [id number] [facility] [address],[place] [address] 11/08/2024 17:13:06 11/08/2024 18:10:37 Gestation period, 32 weeks 6411627 Z3A.32 738507 Roya Albrecht [facility] [address],[place] [address] 11/09/2024 09:01:13 11/09/2024 10:00:50 Gestational diabetes mellitus 89577407 O24.419 500604 [facility] [address],[place] [address] 11/22/2024 15:56:03 11/22/2024 16:36:44 Gestational diabetes mellitus 23609818 O24.414 Z3A.34 [id number] Geoffrey Nguyen MD [facility] [address],[place] [address] 11/22/2024 16:24:33 11/23/2024 08:12:21 Routine care 116157526 Z34.83 257553 Zoë Abebe [facility] [address],[place] [address] 11/22/2024 17:14:32 11/28/2024 03:52:01 Gestational diabetes mellitus 05544283 O24.414 Z3A.34 650818 [facility] [address],[place] [address] 11/29/2024 16:30:16 11/29/2024 16:58:05 Gestational diabetes mellitus 88246949 O24.410 Z3A.35 [id number] [facility] [address],[place] [address] 11/29/2024 16:31:05 11/30/2024 11:51:18 Gestation period, 35 weeks 27117463 Z3A.35 Increased blood pressure 51450595 R03.0 Health Concerns Section Related Observation LastModified by Organization Detai ls LastModified Time None Recorded Concern Status LastModified by Organization Details LastModified Time None Recorded Payers Encounter Date Sequence Insurance Name Policy Number Policy Barry Covered Member ID Barry Member ID Guarantor Name 11/29/2024 1 [place] [id number] Briseida Argelia [id number] Briseida Cee Argelia OBGyn Episode Ob Episode Information Episode Created Date Number of Fetuses Patient Bloodtype Patient rh Status Prepregnancy Weight lbs Domestic Partner Domestic Partner Phone Father Name Ems Driver Status 06/21/20 24 1 O Positive 202 Nathana arian Murry l OPEN Fetus Data First Name Last Name Admitted to NICU Weight (g) Sex Living Outcome Pediatric Complications Fetus ID Race Codes Race Delivery Type [id number] Problems Problem Notes Problem Name Start Date End Date Resolution Snomed Code Not e Bicornuate uterus 24985714 Anxiety 89942096 sees mfm kristi Whitakercheduled 08/21 & 08/28 Level II US and consult 09/18 Level II [facility] Gestational diabetes mellitus 17064860 Checking bs QID and serial growthInsulin 10u [...] Weight in lbs Pre/Post Dialysis Refused Weight 200.868560016262 BP Diastolic BP Location Tested BP Systolic [...] Type Weight in lbs Pre/Post Dialysis Refused 203.49797872494 BP Diastolic BP Location Tested BP Systolic [...] Type Fetus Heart Rate Present Fetus Movement 386239|[id number]|2024-12-21 10:33:00|2024-12-21 10:33:00|XMS_ITS|BKG DAJULIETTE|External Medical Summaries|[id number]|" Clinical Summary Created on: December 21, 2024 Briseida Stout : 1995 Sex: Female Author Organization [address] Address [address] [place] [address] Care Team Providers Care Clinical Resource Coordinator Name Role Phone Yamel Major NP Primary Care Provider [phone] Allergies No known active allergies Medications clonazePAM [...] Comments Back pain Back pain; Comme nts: [facility] 06/27/2015 - Family History Medical History [...] on file Legal 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 Gender Identity Not on file Sexual Orientation [...] patient's age to complete this topic Insurance [facility] CHOICE PLUS Member Subscriber Plan / Payer (Ef fective 2019-Present) Name:Briseida Stout Relation to Subscriber:Child Name:ELANA SALAZAR Date of :1962 (Home) Address: [address] [place] [address], [address] [address] Payer ID:[id number] (NAIC) Type:[facility] HMO/PPO Address: [facility] [address] [place] [address] [facility] Care Teams Clinical Resource Coordinator Relationship Specialty Start Date End Date Yamel Major NP PCP - General 02/21/20 "
--- OUTSIDE RECORDS SUMMARY | 2024-11-30 18:32 | XMS_ITS | Clinical Summary ---
Author Organization [facility] Address [address] [place] [address] Phone Care Team Providers Care Surgical First Assistant Name Role Phone Unavailable Primary Care Provider [...] Data STL ABSTRACTION Provider, Abstract 09/22/2024 Telephone [facility] - [facility] [place] [facility] [address] [facility] [address] [place] [address] Keanu Pyel MD Needs Appointment 09/18/2024 3:30 PM SLASH TRIMMER - 09/18/2024 11:59 PM SLASH TRIMMER Hospital Encounter [facility] [place] [address] [place] [address] Key Coulter MD Discharge Disposition: [...] Comments Blood Pressure 129/62 08/25/2024 3:00 PM SLASH TRIMMER Pulse 81 08/25/2024 3:00 PM SLASH TRIMMER Temperature 36.7 C (98.1 F) 08/25/2024 3:00 PM SLASH TRIMMER Respiratory Rate 18 08/25/2024 3:00 PM SLASH TRIMMER Oxygen Saturation 100% 08/25/2024 3:00 PM SLASH TRIMMER Inhaled Oxygen Concentration - - Weight 95.7 kg (211 lb) 08/25/2024 3:08 PM SLASH TRIMMER Height - - Body Mass Index - - Plan of Treatment Upcoming Encounters Date Type Department Care Team (Late st Contact Info) Description 12/29/2024 Hospital Encounter [facility] OB Triage [address] [place] [address] Dov Adkins MD [address] [facility] [address] [address] Health Maintenance Due Date Last Done Comments DTAP/TDAP/TD VACCINES (1 - Tdap) 2016 HEPATITIS B VACCINES (1 of 3 - 19+ 3-dose series) 2016 CERVICAL CANCER SCREENING 2018 HPV/Cotest (21-29) 2018 PAP SMEAR 2018 INFLUENZA VACCINE (#1) 2024 HPV VACCINES Aged Out No longer eligi ble based on patient's age to complete this topic RSV VACCINE (60+ or ) (No Doses Required) Completed Procedures Procedure Name Priority Date/Time Associated Diagnosis Comments US OB FOLLOW UP PER FETUS Routine 09/18/2024 4:16 PM SLASH TRIMMER drug exposure (CMS/HCC) Obesity (BMI 30-39.9) Anxiety during Short cervix affecting from Last 3 Months Results * US OB FOLLOW UP PER FETUS (09/18/2024 4:16 PM SLASH TRIMMER) Anatomical Region Laterality Modality Pelvis Ultrasound 09/18/2024 3:39 PM SLASH TRIMMER Narrative 09/18/2024 4:15 PM SLASH TRIMMER STL FOLLOW UP ----- Pat. Name: JORDI STOUT Study Date: 09/18/2024 3:39pm Pat. NO: [id number] Referring MD: COSME CASTANEDA CNM Site: [place] Medical Device Assembler: Stacy Vargas RDMS : 1995 Age: 29 [...] fetus by drugs O26.872: Cervical shortening Procedures 46281: Ultrasound, uterus, real time with image documentation, [...] 2 lb 0 oz EFW by Hadlock ([id number]) Head / Face / Neck Biometry: Consumer Services Advisor 5.2 mm Outer IOD 38.7 mm 24w [...] and date of were verified by the photographer's assistant prior to the exam IMPRESSION ----- 1. [...] Pat. Name:Chantale STOUT Date:09/18/2024 3:39pm Pat. NO: [id number] MD:GEETHA SMITH Site:[place]:Stacy Vargas RDMS :1995Age:29 ----- INDICATION ----- Cervical Shortening, Confirmed Exposure to Medications / Drugs, Suspected Damage to Fetus Asthma Complicating Maternal Obesity (BMI<40) Complicating Anxiety, Maternal CODING ----- Diagnoses Z3A.25: Weeks of gestation O99.342: Other mental disorders complicatingpregnancy O99.212: Obesity complicating O99.512: Diseases of the respiratory systemcomplicating O35.5XX0: Maternal care for (suspected) damage tofetus by drugs O26.872: Cervical shortening Procedures 63061: Ultrasound, uterus, real time withimage documentation, follow up, transabdominal approach per fetus HISTORY ----- OB History 1. Para 0 MATERNAL ASSESSMENT ----- Physical Exam Initial weight 93 kg, 204 lb. Initial BMI 35.02kg/m METHOD ----- Transabdominal ultrasound examination ----- Barboza . Number of fetuses: 1 DATING ----- Cycle:regular cycle GA by prior [id number] w + 3 d BIANCA by prior [...] 2 lb 0 oz EFW by Hadlock ([id number]) Head / Face / Neck Biometry: Consumer Services Advisor 5.2mm Outer IOD 38.7 mm 24w 4d [...] and date of were verified by the photographer's assistant prior tothe exam IMPRESSION ----- 1. Single [...] Advance Directives For more information, please contact: [phone] * Full Code (Latest Code Status on File) Date Activated Date Inactivated Comments 08/25/2024 3:08 PM 08/25/2024 7:38 PM
--- OUTSIDE RECORDS SUMMARY | 2024-11-30 18:32 | XMS_ITS | Continuity of Care Document ---
Author Organization [facility] Address [address] [place] [address] Assessment Encounter Date Assessment Date Assessment LastModified [...] cy No observ ation record ed. [email or web address] [facility] [address], [place], [address], 06/21/2024 18:22:27 06/21/20 24 06/21/2024 US, obste tric, follo w-up No observ ation record ed. [email or web address] [address], [place], [address], 06/22/2024 17:30:11 07/24/20 24 07/24/2024 US, obste tric, trans abdom inal + trans vagin al No observ ation record ed. [email or web address] [facility] [address], [place], [address], 08/18/2024 17:50:21 07/24/20 24 07/24/2024 US, obste tric, trans abdom inal + trans vagin al No observ ation record ed. [email or web address] [facility] [address], [place], [address], 07/25/2024 07:35:37 08/15/19 25 08/15/2024 US, obste tric, limit ed No observ ation record ed. [email or web address] [facility] [address], [place], [address], 08/15/2024 16:34:43 08/15/19 25 08/15/2024 US, obste tric, limit ed No observ ation record ed. [email or web address] [address], [place], [address], 08/15/2024 21:49:01 08/21/19 25 08/21/2024 US, obste tric, trans abdom inal + trans vagin al No observ ation record ed. [address] [facility] [address], [place], [address], 08/23/2024 13:00:24 08/25/19 25 08/25/2024 US, obste tric, trans abdom inal + trans vagin al No observ ation record ed. [address] [place] [address], [place], [address], 09/13/2024 09:46:05 08/28/19 25 08/28/2024 US, obste tric, trans abdom inal + trans vagin al No observ ation record ed. [address] [place] [address], [place], [address], 08/29/2024 07:26:16 08/28/19 25 08/28/2024 US, obste tric, trans abdom inal + trans vagin al No observ ation record ed. [address], [place], [address], 08/29/2024 07:26:40 09/18/19 25 09/18/2024 US, obste tric, trans abdom inal + trans vagin al No observ ation record ed. [email or web address] [place] [address], [place], [address], 09/20/2024 17:02:42 09/18/19 25 09/18/2024 US, obste tric, trans abdom inal + trans vagin al No observ ation record ed. [address] [facility] [address], [place], [address], 09/19/2024 22:42:50 10/26/19 25 10/25/2024 US, obste tric, follo w-up No observ ation record ed. [email or web address] [facility] [address], [place], [address], 10/25/2024 12:55:16 10/26/19 25 10/25/2024 US, obste tric, follo w-up No observ ation record ed. [email or web address] [address], [place], [address], 10/27/2024 13:40:59 11/10/19 25 11/08/2024 non-s tress test No observ ation record ed. [email or web address] [facility] [address], [place], [address], 11/09/2024 09:30:19 11/10/19 25 11/08/2024 non-s tress test No observ ation record ed. [email or web address] [facility] [address], [place], [address], 11/09/2024 10:15:59 11/23/19 25 11/22/2024 US, sonya tric, follo w-up No observ ation record ed. [email or web address] [facility] [address], [place], [address], 11/22/2024 17:08:53 11/23/19 25 11/22/2024 US, sonya comer, bioph ysica l profi le + non-s tress test No observ ation record ed. [email or web address] [facility] [address], [place], [address], 11/22/2024 17:09:03 11/23/19 25 11/22/2024 US, obste tric, follo w-up No observ ation record ed. [email or web address] [address], [place], [address], 11/23/2024 09:32:24 11/24/19 25 11/23/2024 US, obste tric, trans abdom inal + trans vagin al No observ ation record ed. [address], [place], [address], 11/23/2024 22:08:57 11/28/19 25 11/27/2024 non-s tress test No observ ation record ed. [email or web address], [place], [address], 11/27/2024 22:07:07 11/29/19 US, obste tric, bioph ysica l profi le + non-s tress test No observ ation record ed. [email or web address] [facility] [address], [place], [address], 11/28/2024 09:34:08 11/29/1911/28/2024 non-s tress test No observ ation record ed. [email or web address] [place] [address] [address] [facility], [place], [address], 11/30/2024 09:16:00 11/30/19 25 11/29/2024 US, obste tric, bioph ysica l profi le + non-s tress test No observ ation record ed. [email or web address] [facility] [address], [place], [address], 11/29/2024 17:53:07 11/30/19 25 11/29/2024 US, obste tric, bioph ysica l profi le + non-s tress test No observ ation record ed. [email or web address] [address], [place], [address], 11/30/2024 08:57:43 11/30/19 25 11/29/2024 non-s tress test No observ ation record ed. [email or web address] [facility] [address], [place], [address], 11/29/2024 20:30:32 11/30/19 25 US, obste tric, bioph ysica l profi le + non-s tress test No observ ation record ed. [facility] [address], [place], [address], 11/29/2024 20:38:26 12/01/19 25 11/30/2024 imagi ng/di agnos tic resul t No observ ation record ed. [facility] [address], [place], [address], 11/30/2024 17:25:17 Result Notes None recorded. Problems Name Problem SNOMED Code Status Onset Date Resolution Date Notes Provider Name and Address Organization Details Recorded Time Anxiety 97992284 Active sees [facility] Scheduled 08/21 & 08/28 Level II US and consult 09/18 Level II [facility] Yaa zamora [facility] 5 09:46:38 Asthma 203644977 Active 2023 Roya zamora [facility] 4 20:15:22 42369533 Active 2023 Roya zamora [facility] 4 19:30:51 Bicornuat e uterus 01134772 Active Yaa zamora [facility] 4 15:42:51 Bicornuat e uterus 60301440 Active Yaa zamora [facility] 4 15:42:51 Anxiety 24833888 Active sees [facility] Scheduled 08/21 & 08/28 Level II US and consult 2/10 [facility] 5 09:46:38 Gestation al diabetes mellitus 44108779 Active Checking bs QID and serial growth Insulin 10u @ bedtime on 11/22 antental [address] Alma[address] [facility] 5 22:23:57 Gestation al diabetes mellitus 51856091 Active Checking bs QID and serial growth Insulin 10u @ bedtime on 11/22 antental testing Yaa Almazan [facility] 5 22:23:57 Problem Notes None recorded. Procedures Surgical History Date Name Laterality Status Provider Name and Address Organization Details Recorded Time 4 Date of Last Pap Smear completed Roya Maystz [facility] 05/24/2024 18:21:00 8 [facility] 20:17:58 Imaging Results None recorded. Procedure Notes None recorded. Medical Equipment None Reported. Allergies Allergen ID Allergen Name Allergen Category Reaction Reaction Severity Criticality Documentation Date Start Date Code Code System Note Provider Name and Address Organization Details Recorded Time 97070 ethinyl estradiol / levonorge strel medicatio n headache moderate Not available 05/24/2024 94972 8 RxNorm Roya Albrecht [facility] 4 20:10:59 Medications Name Sig [...] Address Organization Details Last Updated DateTime 5 147522. 64496 g 38.1 kg/m2 162.56 cm 162.56 cm 38.1 kg/m2 434171. 51 g 158 mm[Hg] 89 mm[Hg] 158 mm[Hg] 89 mm[Hg] Roya Maystz [facility] 20:27:33 Social History Question Answer Notes LastModified by Organizat ion Details LastModified Time Tobacco Smoking Status Never Smoker Roya Albrecht [facility], [facility] 05/24/2024 20:17:42 What Is Your Level Of Alcohol Consumption? None [email or web address] Information not available 05/24/2024 If You Are , What Was Your Level Of Alcohol Consumption Prior To ? Occasional [email or web address] Information not available 05/24/2024 How Many Years Have You Consumed Alcohol? 8 [email or web address] Information not available 05/24/2024 Are You Blind Or Do You Have Difficulty Seeing? No Information n ot available 05/24/2024 What Is Your Level Of Caffeine Consumption? Moderate Information not available 05/24/2024 In The 14 Days Before Symptom Onset, Have You Had Close Contact With A Laboratory-confirm ed COVID-19 While That Case Was Ill? No [email or web address] Information n ot available 05/24/2024 In The 14 Days Before Symptom Onset, Have You Had Close Contact With A Person Who Is Under Investigation For COVID-19 While That Person Was Ill? No [email or web address] Information not available 05/24/2024 Have You Been To An Area Known To Be High Risk For COVID-19? No [email or web address] Information not available 05/24/2024 Are You Currently Employed? Yes [email or web address] Information not available 10/25/2024 Are You Deaf Or Do You Have Serious Difficulty Hearing? No [email or web address] Information not available 05/24/2024 What Type Of Diet Are You Following? REGULAR [email or web address] Information n ot available 05/24/2024 What Is The Highest Grade Or Level Of School You Have Completed Or The Highest Degree You Have Received? 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 Yes [email or web address] Information not available 05/24/2024 Do You Use Protection During Sex? No [email or web address] Information not available 05/24/2024 Do You Use Your Seat Belt Or Car Seat Routinely? Yes [email or web address] Information not available 05/24/2024 Are You Sexually Active? Yes [email or web address] Information not available 10/25/2024 Do You Have Smoke And Carbon Monoxide Detectors In Your Home? Yes [email or web address] Information not available 05/24/2024 How Much Tobacco Do You Smoke? No Information not available 05/24/2024 Do You Feel Stressed (tense, Restless, Nervous, Or Anxious, Or Unable To Sleep At Night)? [id number] [email or web address] Information not available 05/24/2024 Do You Use Any Illicit Or Recreational Drugs? Yes [email or web address] Information not available 05/24/2024 Do You Use Sunscreen Routinely? No [email or web address] Information not available 05/24/2024 Has Tobacco Cessation Counseling Been Provided? Yes [email or web address] Information not available 05/24/2024 On What Date Was Tobacco Cessation Counseling Provided? 11/29/2024 [email or web address] Information not available 11/29/2024 Have You Used IV Drugs? No [email or web address] Information not available 05/24/2024 Do You Or Have You Ever Used Any Other Forms Of Tobacco Or Nicotine? No [email or web address] Information not available 05/24/2024 Sex: Unknown Functional Status Question Answer Note LastModified by Organizat ion Details LastModified Time Do you have difficulty walking or climbing stairs? No [email or web address] Information not available 05/24/2024 Are you able to walk? YESWOREST [email or web address] Information not available 05/24/2024 Are you able to care for yourself? Yes [email or web address] Information not available 05/24/2024 Do you have difficulty dressing or bathing? No [email or web address] Information not available 05/24/2024 What is your exercise level? Occasional [email or web address] Information not available 05/24/2024 Mental Status None recorded. Family History Relationship Description Onset Age of this Age Resolved Age Notes LastModified by Organization Details LastModified Time Father Diabetes mellitus [email or web address] Not available 05/24 18:21:00 Maternal Grandmother Malignant tumor of breast 60 [email or web address] Not available 05/24 20:17:04 Paternal Uncle Malignant tumor of lung [email or web address] Not available 05/24 20:17:14 Medical History Condition [...] SNOMED-CT Code Diagnosis ICD10 Code Diagnosis Note [id number] Mirna Traylor CNM [facility] [address] [address] 11/08/2024 17:13:06 11/08/2024 18:10:37 Gestation period, 32 weeks 6073421 Z3A.32 [id number] Roya Albrecht [facility] [address],[place] [address] 11/09/2024 09:01:13 11/09/2024 10:00:50 Gestational diabetes mellitus 53496076 O24.419 [id number] [facility] [address],[place] [address] 11/22/2024 15:56:03 11/22/2024 16:36:44 Gestational diabetes mellitus 98120887 O24.414 Z3A.34 [id number] Geoffrey Nguyen MD [facility] [address],[place] [address] 11/22/2024 16:24:33 11/23/2024 08:12:21 Routine care 821527645 Z34.83 [id number] Zoë Abebe [facility] [address],[place] [address] 11/22/2024 17:14:32 11/28/2024 03:52:01 Gestational diabetes mellitus 53003926 O24.414 Z3A.34 [id number] [facility] [address],[place] [address] 11/29/2024 16:30:16 11/29/2024 16:58:05 Gestational diabetes mellitus 16285134 O24.410 Z3A.35 [id number] Mirna Traylor CNM [facility] [address],[place] [address] 11/29/2024 16:31:05 11/30/2024 11:51:18 Gestation period, 35 weeks 14222085 Z3A.35 Increased blood pressure 84160816 R03.0 Health Concerns Section Related Observation LastModified by Organization Detai ls LastModified Time None Recorded Concern Status LastModified by Organization Details LastModified Time None Recorded Payers Encounter Date Sequence Insurance Name Policy Number Policy Barry Covered Member ID Barry Member ID Guarantor Name 11/29/2024 1 [place] [id number] Briseida Stout [id number] Briseida Cee Luiszuri OBGyn Episode Ob Episode Information Episode Created Date Number of Fetuses Patient Bloodtype Patient rh Status Prepregnancy Weight lbs Domestic Partner Domestic Partner Phone Father Name General 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 Status 06/21/20 24 1 O Positive 202 [place]ar[employer] price OPEN Fetus Data First Name Last Name Admitted to NICU Weight (g) Sex Living Outcome Pediatric Complications Fetus ID Race Codes Race Delivery Type [id number] Problems Problem Notes Problem Name Start Date End Date Resolution Snomed Code Not e Bicornuate uterus 84593405 Anxiety 77157031 sees mfm a [facility] mercyScheduled 08/21 & 08/28 Level II US and consult 09/18 Level II US [facility] Gestational diabetes mellitus 53491070 Checking bs QID and serial growthInsulin 10u @ bedtime on 11/22 antental testing Esteban Calculation Initial Esteban Date Initial Exam Date Initial Exam Provider Initial Ultrasound Date Last Menstrual Period Date Ultra Sound Weeks Gestation 12/23/2024 05/24/2024 iMrna Traylor 05/24/2024 03/18/2024 8 Eighteen To Twenty [...] Weight in lbs Pre/Post Dialysis Refused Weight 200.812080302790 BP Diastolic BP Location Tested BP Systolic [...] Type Weight in lbs Pre/Post Dialysis Refused 203.28098198741 BP Diastolic BP Location Tested BP Systolic [...] Present Fetus Movement Comments Flowsheet Date 08/16/2024 [id number]|2024-11-30 18:32:00|2024-11-30 18:32:00|XMS_ITS|LEONARD GUERRIER|External Medical Summaries|[id number]|" Clinical Summary Created on: November 30, 2024 Briseida Stout : 1995 Sex: Female Author Organization [address] [address] Care Team Providers Care [employer] Worker Name Role Phone Yamel Major NP Primary Care Provider [phone] Allergies No known active allergies Medications clonazePAM [...] Comments Back pain Back pain; Comme nts: [facility] 06/27/2015 - Family History Medical [...] on file Legal Sex Female 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
--- OUTSIDE RECORDS SUMMARY | 2024-11-30 18:32 | XMS_ITS | Data Portability ---
Author Organization [facility] [place] Address [address] [place] [address] Assessment Encounter Date Assessment Date Assessment LastModified by Organization Details LastModified Time 11/22/2024 11/22/2024 Patient is ___weeks . Discussed plan. [email or web address] Not available 11/22/2024 17:10:52 11/29/2024 11/29/2024 Patient is _35__weeks . Discussed plan. [email or web address] Not available 11/29/2024 18:24:11 Plan of Treatment [...] available OB ROUTINE 2024 09:30A M Mirna LopezgleFLORY Not available Not available Not available Lab None recorde d. Referral None recorde d. Procedures None recorde d. Surgeries None recorde d. Imaging US, obstetr ic, biophys ical profile + non-str ess test 2024 025 [email or web address] [address], [address], [place], [address], 11/30/2024 10:19:18 US, obstetr ic, follow- up 2024 025 [email or web address] [address], [address], [place], [address], 11/22/2024 17:09:39 US, obstetr ic, biophys ical profile + non-str ess test 2024 025 [email or web address] [address], [address], [place], [address], 11/22/2024 17:09:20 Medication Orders None recorde d. Patient TargetsNo targets recorded. Patient InstructionsNo instructions recorded. Reason for Referral None Reported. Results Created Date Observation Date Name Description Value Unit Range Abnormal Flag Note LastModifiedBy Organization Detail LastModifiedTime 10/26/1910/25/2024 GTT - GESTA JESUS L, 3 HOUR, ACOG glucose, fasting acog 96 mg/dL 70-94 high Not Available [facility] (Lab) [address], [place], [address], 10/26/2024 03:40:15 10/26/1910/25/2024 GTT - GESTA JESUS L, 3 HOUR, ACOG glucose, 1 hour acog 181 mg/dL 70-179 high Not Available [facility] (Lab) [address], [place], [address], 10/26/2024 03:40:15 10/26/19 25 10/25/2024 GTT - GESTA JESUS L, 3 HOUR, ACOG glucose, 2 hour acog 155 mg/dL 70-154 high Not Available [facility] (Lab) [address] [place], [address], 10/26/2024 03:40:15 10/26/19 25 10/25/2024 GTT - GESTA JESUS L, 3 HOUR, ACOG glucose, 3 hour acog 138 mg/dL 70-139 Not Available [facility] (Lab) [address] [place], [address], 10/26/2024 03:40:15 10/26/19 25 10/25/2024 US, obste tric, follo w-up No observ ation record ed. [email or web address] [place] [address], [place], [address], 10/25/2024 12:55:16 10/26/19 25 10/25/2024 US, obste tric, follo w-up No observ ation record ed. [email or web address] [facility] [address] [facility], [place], [address], 10/27/2024 13:40:59 11/10/19 25 11/08/2024 non-s tress test No observ ation record ed. [email or web address] [place] [address], [place], [address], 11/09/2024 09:30:19 11/10/19 25 11/08/2024 non-s tress test No observ ation record ed. [email or web address] [place] [address], [place], [address], 11/09/2024 10:15:59 11/23/19 25 11/22/2024 US, obste tric, follo w-up No observ ation record ed. [email or web address] [place] [address], [place], [address], 11/22/2024 17:08:53 11/23/19 25 11/22/2024 US, obste tric, bioph ysica l profi le + non-s tress test No observ ation record ed. [email or web address] [place] [address], [place], [address], 11/22/2024 17:09:03 11/23/19 25 11/22/2024 US, obste tric, follo w-up No observ ation record ed. [facility] [address], [place], [address], 11/23/2024 09:32:24 11/24/19 25 11/23/2024 US, obste tric, trans abdom inal + trans vagin al No observ ation record ed. [address], [place], [address], 11/23/2024 22:08:57 11/28/1911/27/2024 non-s tress test No observ ation record ed. [email or web address] [place] [address], [place], [address], 11/27/2024 22:07:07 11/29/19 US, obste tric, bioph ysica l profi le + non-s tress test No observ ation record ed. [email or web address] [place] [address], [place], [address], 11/28/2024 09:34:08 11/29/19 25 11/28/2024 non-s tress test No observ ation record ed. [place] [id number] [facility] [address], [place], [address], 11/30/2024 09:16:00 11/30/19 25 11/29/2024 US, obste tric, bioph ysica l profi le + non-s tress test No observ ation record ed. [email or web address] [place] [address], [place], [address], 11/29/2024 17:53:07 11/30/19 25 11/29/2024 US, obste tric, bioph ysica l profi le + non-s tress test No observ ation record ed. [email or web address] [address], [place], [address], 11/30/2024 08:57:43 11/30/19 25 11/29/2024 non-s tress test No observ ation record ed. [email or web address] [place] [address], [place], [address], 11/29/2024 20:30:32 11/30/19 US, obste tric, bioph ysica l profi le + non-s tress test No observ ation record ed. [email or web address] [place] [address], [place], [address], 11/29/2024 20:38:26 12/01/19 25 11/30/2024 imagi ng/di agnos tic resul t No observ ation record ed. [facility] [address], [place], [address], 11/30/2024 17:25:17 Result Notes None recorded. Problems Name Problem SNOMED Code Status Onset Date Resolution Date Notes Provider Name and Address Organization Details Recorded Time Anxiety 07704056 Active sees mfm at [facility] Scheduled 08/21 & 08/28 Level II US and consult 09/18 Level II [facility] MF Yaa zamora, [facility] 5 09:46:38 Asthma 180872148 Active 2023 Roya zamora [facility] 4 20:15:22 21523105 Active 2023 Roya zamora [facility] 4 19:30:51 Bicornuat e uterus 62245899 Active Yaa zamora [facility] 4 15:42:51 Bicornuat e uterus 16575597 Active Yaa zamora [facility] 4 15:42:51 Anxiety 09220868 Active sees mfm at [facility] Scheduled 08/21 & 08/28 Level II US and consult 09/18 Level II US [facility] Yaa zamora [facility] 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 5 22:23:57 Gestation al diabetes mellitus 99820571 Active Checking bs QID and serial growth Insulin 10u @ bedtime on 11/22 antental testing Yaa Almazan [facility] 5 22:23:57 Problem Notes None recorded. Procedures Surgical History Date Name Laterality Status Provider Name and Address Organization Details Recorded Time 4 Date of Last Pap Smear completed Roya Albrecht [facility] 05/24/2024 18:21:00 8 Breast Surgery completed Roya Albrecht [facility] 05/24/2024 20:17:58 Imaging Results Imaging Date Name Status LastModified by Organization Details LastModified Time 10/25/2024 US, obstetric, follow-up completed [email or web address] [place] [address], [place], [address], 10/25/2024 12:55:16 10/25/2024 US, obstetric, follow-up completed [email or web address] [address], [place], [address], 10/27/2024 13:40:59 11/08/2024 non-stress test completed [email or web address] [place] [address] [address], [place], [address], 11/09/2024 09:30:19 11/08/2024 non-stress test completed [address], [place], [address], 11/09/2024 10:15:59 11/22/2024 US, obstetric, follow-up completed [email or web address] [place] [address], [place], [address], 11/22/2024 17:08:53 11/22/2024 US, obstetric, biophysical profile + non-stress test [email or web address] [place] [address], [place], [address], 11/22/2024 17:09:03 11/22/2024 US, obstetric, follow-up completed [email or web address] [address], [place], [address], 11/23/2024 09:32:24 11/23/2024 US, obstetric, transabdominal + transvaginal completed [email or web address] [address], [place], [address], 11/23/2024 22:08:57 11/27/2024 non-stress test completed [email or web address] [place] [address], [place], [address], 11/27/2024 22:07:07 11/28/2024 US, obstetric, biophysical profile + non-stress test completed [email or web address] [place] [address], [place], [address], 11/28/2024 09:34:08 11/28/2024 non-stress test completed [address], [place], [address], 11/30/2024 09:16:00 11/29/2024 US, obstetric, biophysical profile + non-stress test completed [email or web address] [place] [address], [place], [address], 11/29/2024 17:53:07 11/29/2024 US, obstetric, biophysical profile + non-stress test completed [email or web address] [address], [place], [address], 11/30/2024 08:57:43 11/29/2024 non-stress test completed [email or web address] [place] [address], [place], [address], 11/29/2024 20:30:32 11/29/2024 US, obstetric, biophysical profile + non-stress test completed [email or web address] [place] [address], [place], [address], 11/29/2024 20:38:26 11/30/2024 imaging/diagnostic result active [facility] [address], [place], [address], 11/30/2024 17:25:17 Procedure Notes None recorded. Medical Equipment None Reported. Allergies Allergen ID Allergen Name Allergen Category Reaction Reaction Severity Criticality Documentation Date Start Date Code Code System Note Provider Name and Address Organization Details Recorded Time 93990 ethinyl estradiol / levonorge strel medicatio n headache moderate Not available 05/24/2024 88202 8 RxNorm Roya Albrecht [facility] [place] - [facility] 20:10:59 Medications Name Sig Start Date [...] Address Organization Details Last Updated DateTime 5 86263.7 2903 g 61162.7 2903 g 140 mm[Hg] 80 mm[Hg] 140 mm[Hg] 80 mm[Hg] Zoë Abebe [facility] 5 19:43:34 Date Recorded Body weight Body mass index (BMI) Body height Body height Body mass index (BMI) Body weight Systolic blood pressure Diastolic blood pressure Systolic blood pressure Diastolic blood pressure Provider Name and Address Organization Details Last Updated DateTime 5 970185. 19414 g 38.1 kg/m2 162.56 cm 162.56 cm 38.1 kg/m2 287717. 51 g 158 mm[Hg] 89 mm[Hg] 158 mm[Hg] 89 mm[Hg] Roya Albrecht [facility] 20:27:33 Social History Question Answer Notes LastModified by Organizat ion Details LastModified Time Tobacco Smoking Status Never Smoker Roya Albrecht [facility], [facility] 05/24/2024 20:17:42 What Is Your Level Of Alcohol Consumption? None [email or web address] Information not available 05/24/2024 If You Are , What Was Your Level Of Alcohol Consumption Prior To ? Occasional [email or web address] Information not available 05/24/2024 How Many Years Have You Consumed Alcohol? 8 [email or web address] Information not available 05/24/2024 Are You Blind Or Do You Have Difficulty Seeing? No [email or web address] Information n ot available 05/24/2024 What Is Your Level Of Caffeine Consumption? Moderate [email or web address] Information not available 05/24/2024 In The 14 Days Before Symptom Onset, Have You Had Close Contact With A Laboratory-confirm ed COVID-19 While That Case Was Ill? No [email or web address] Information n ot available 05/24/2024 In The 14 Days Before Symptom Onset, Have You Had Close Contact With A Person Who Is Under Investigation For COVID-19 While That Person Was Ill? No [email or web address] Information not available 05/24/2024 Have You Been To An Area Known To Be High Risk For COVID-19? No [email or web address] Information not available 05/24/2024 Are You Currently Employed? Yes [email or web address] Information not available 10/25/2024 Are You Deaf Or Do You Have Serious Difficulty Hearing? No [email or web address] Information not available 05/24/2024 What Type Of Diet Are You Following? REGULAR [email or web address] Information n ot available 05/24/2024 What Is The Highest Grade Or Level Of School You Have Completed Or The Highest Degree You Have Received? 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 Yes [email or web address] Information not available 05/24/2024 Do You Use Protection During Sex? No [email or web address] Information not available 05/24/2024 Do You Use Your Seat Belt Or Car Seat Routinely? Yes Information not available 05/24/2024 Are You Sexually Active? Yes [email or web address] Information not available 10/25/2024 Do You Have Smoke And Carbon Monoxide Detectors In Your Home? Yes [email or web address] Information not available 05/24/2024 How Much Tobacco Do You Smoke? No [email or web address] Information not available 05/24/2024 Do You Feel Stressed (tense, Restless, Nervous, Or Anxious, Or Unable To Sleep At Night)? [id number] [email or web address] Information not available 05/24/2024 Do You Use Any Illicit Or Recreational Drugs? Yes [email or web address] Information not available 05/24/2024 Do You Use Sunscreen Routinely? No [email or web address] Information not available 05/24/2024 Has Tobacco Cessation Counseling Been Provided? Yes [email or web address] Information not available 05/24/2024 On What Date Was Tobacco Cessation Counseling Provided? 11/29/2024 [email or web address] Information not available 11/29/2024 Have You Used IV Drugs? No [email or web address] Information not available 05/24/2024 Do You Or Have You Ever Used Any Other Forms Of Tobacco Or Nicotine? No [email or web address] Information not available 05/24/2024 Sex: Unknown Functional Status Question Answer Note LastModified by Organizat ion Details LastModified Time Do you have difficulty walking or climbing stairs? No [email or web address] Information not available 05/24/2024 Are you able to walk? YESWOREST [email or web address] Information not available 05/24/2024 Are you able to care for yourself? Yes [email or web address] Information not available 05/24/2024 Do you have difficulty dressing or bathing? No [email or web address] Information not available 05/24/2024 What is your exercise level? Occasional [email or web address] Information not available 05/24/2024 Mental Status None recorded. Family History Relationship Description Onset Age of this Age Resolved Age Notes LastModified by Organization Details LastModified Time Father Diabetes mellitus [email or web address] Not available 05/24 18:21:00 Maternal Grandmother Malignant tumor of breast 60 [email or web address] Not available 05/24 20:17:04 Paternal Uncle Malignant tumor of lung [email or web address] Not available 05/24 20:17:14 Medical History Condition [...] SNOMED-CT Code Diagnosis ICD10 Code Diagnosis Note [id number] Lenore Hernandez [place] [address] [address] 05/24/2024 16:32:42 05/24/2024 17:47:12 [id number] Mirna Traylor [facility] [address],[place] [address] 05/24/2024 16:33:03 05/25/2024 09:42:07 Amenorrhea 26141902 N91.2 pap not collected, records release signedasth ma-inhaler as neededPNV dailywill talk to dr. turner about clonazepam , will await her answer, only use as necessary prn usereviewe d office, precaution s and education plan 12 week new ob and first look with nipt Venereal d isease screening 208641008 Z11.3 Anxiety 65176225 F41.9 [id number] Bree [facility] [address],[place] [address] 06/21/2024 17:33:21 06/22/2024 02:59:39 screening 912277402 Z36.82 Z3A.12 [id number] [facility] [address],[place] [address] 06/21/2024 17:34:12 06/23/2024 12:41:54 Gestation period, 13 weeks 08121443 Z3A.13 Routine an tenatal care 312816540 Z34.90 [id number] Mirna Traylor [facility] [address],[place] [address] 07/19/2024 17:12:06 07/19/2024 17:48:43 [id number] Lenore Hernandez [place] [address],[place] [address] 08/15/2024 14:26:05 08/15/2024 15:13:27 Abdominal pain in 777491738 O99.891 Z3A.21 [id number] Mirna Traylor [facility] [address],[place] [address] 08/16/2024 14:58:53 08/16/2024 16:21:44 Gestation period, 21 weeks 55269620 Z3A.21 [id number] Mirna Traylor [facility] [address],[place] [address] 08/24/2024 08:55:14 08/24/2024 10:27:52 Short cervical length in 837058365 O26.879 discussed and reviewed us, cerclage, progestero ne, f/u mfm and await rec [id number] Mirna Traylor [facility] [address],[place] [address] 09/13/2024 16:44:22 09/13/2024 17:26:56 Gestation period, 24 weeks 086892959 Z3A.24 [id number] Mirna Traylor [facility] [address],[place] [address] 10/11/2024 16:47:58 10/11/2024 17:43:19 Gestation period, 28 weeks 80999383 Z3A.28 [id number] Bree Staton [place] [address],[place] [address] 10/25/2024 09:05:30 10/25/2024 10:51:00 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 Z3A.30 [id number] JAIR TURNER MD [place] [address] [address] 10/25/2024 09:05:58 10/25/2024 12:13:25 Routine care 440576305 Z34.03 [id number] [facility] [address],[place] [address] 11/08/2024 17:13:06 11/08/2024 18:10:37 Gestation period, 32 weeks 9610633 Z3A.32 [id number] Roya Ambrocio [place] [address],[place] [address] 11/09/2024 09:01:13 11/09/2024 10:00:50 Gestational diabetes mellitus 25145858 O24.419 [id number] [facility] [address],[place] [address] 11/22/2024 15:56:03 11/22/2024 16:36:44 Gestational diabetes mellitus 23347956 O24.414 Z3A.34 [id number] Geoffrey Nguyen MD [place] [address] [address] 11/22/2024 16:24:33 11/23/2024 08:12:21 Routine care 000718189 Z34.83 [id number] Zoë Abebe [place] [address] [address] 11/22/2024 17:14:32 11/28/2024 03:52:01 Gestational diabetes mellitus 90822733 O24.414 Z3A.34 [id number] [facility] [address],[place] [address] 11/29/2024 16:30:16 11/29/2024 16:58:05 Gestational diabetes mellitus 32753110 O24.410 Z3A.35 [id number] [facility] [address] [address] 11/29/2024 16:31:05 11/30/2024 11:51:18 Gestation period, 35 weeks 20224985 Z3A.35 056136|[id number]|2024-11-30 18:32:00|2024-11-30 18:32:00|XMS_ITS|LEONARD GUERRIRE|External Medical Summaries|[id number]|" Referral Summary Created on: November 30, 2024 Briseida Stout : 1995 Sex: Female Author Organization [facility] [place] Address [address] [place] [address] Care Team Providers Care Carpet Cleaning Technician Name Role Phone Yamel Major NP Primary Care Provider [phone] Allergies No known active allergies Medications clonazePAM [...] hours as needed for wheezing 1 each Active Active Problems No known active problems [...] on file 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
[2024-11-30 18:50] VITALS: BMI 38.2
[2024-11-30 19:13] LABS: Collection Time Urine 24 HOURS
[2024-11-30 19:16] LABS: Total Volume 24 Hour Urine 500 ml
[2024-11-30 19:22] LABS: Creatinine Clearance Urine 116.3 ml/min (75-125); Creatinine Urine 169.6 mg/dL; Patient Weight 222 Lbs; Serum Creat 0.43; Total Protein Urine 24 Hr 70 mg/24hr (28-141); Total Protein Urine Random 14 mg/dL
--- OUTSIDE RECORDS SUMMARY | 2024-12-21 10:33 | XMS_ITS | Referral Summary ---
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
--- OUTSIDE RECORDS SUMMARY | 2024-12-21 10:33 | XMS_ITS | Clinical Summary ---
Author Organization [facility] Address [address] [place] [phone] Phone Care Team Providers Care Case Management Coordinator Name Role Phone Unavailable Primary Care Provider [...] Comments Blood Pressure 129/62 08/25/2024 3:00 PM IN TUBE CONVERSION TECHNICIAN Pulse 81 08/25/2024 3:00 PM IN TUBE CONVERSION TECHNICIAN Temperature 36.7 C (98.1 F) 08/25/2024 3:00 PM IN TUBE CONVERSION TECHNICIAN Respiratory Rate 18 08/25/2024 3:00 PM IN TUBE CONVERSION TECHNICIAN Oxygen Saturation 100% 08/25/2024 3:00 PM IN TUBE CONVERSION TECHNICIAN Inhaled Oxygen Concentration - - Weight 95.7 kg (211 lb) 08/25/2024 3:08 PM IN TUBE CONVERSION TECHNICIAN Height - - Body Mass Index - - Plan of Treatment Upcoming Encounters Date Type Department Care Team (Late st Contact Info) Description 12/29/2024 Hospital Encounter [facility] OB Triage [address] [place] [address] Dov Adkins MD [address] [facility] [address] [place] [address] Health Maintenance Due Date Last [...] (60+ or ) (No Doses Required) Completed Insurance [employer]/TRUE BLUE PPO RX [employer] Commercial Advance Directives For more information, please contact: [phone] * Full Code (Latest Code Status on File) Date Activated Date Inactivated Comments 08/25/2024 3:08 PM 08/25/2024 7:38 PM
== END 2024-11-30 18:18 | disposition home or self-care (01) ==
PROVIDERS: Visit Provider Advanced Practice Midwife
DX: O13.9 Gestational [pregnancy-induced] hypertension without significant proteinuria, unspecified trimester (principal); Z3A.00 Weeks of gestation of pregnancy not specified
CPT/HCPCS: 81050; 82575; 84156

== ENCOUNTER 2024-12-06 09:36 | Outpatient (RCR) | payer BC, SELFPAY ==
[2024-12-06 10:16] LABS: Basophils Percent Auto 0.4 % (0.2-1.2); Eosinophils Percent Auto 0.3 % (0-4.4); Hematocrit 35.5 % (37.0-47.0); Hemoglobin 11.8 g/dL (12.0-15.0); Immature Granulocyte Absolute 0.04 K/mm3 (0.00-0.031); Immature Granulocyte Percent A 0.4 % (0-0.5); Lymphocytes Percent Auto 22.1 % (18.3-44.2); Mean Corpuscular HGB Conc 33.2 g/dl (32-36); Mean Corpuscular Hemoglobin 30.3 pg (26-34); Mean Corpuscular Volume 91.3 fl (80-100); Mean Platelet Volume 10.9 fl (7.4-10.4); Monocytes Absolute Auto 0.6 K/mm3 (0.1-0.6); Monocytes Percent Auto 5.8 % (2.6-8.5); Neutrophils Absolute Auto 7.7 K/mm3 (1.3-6.7); Platelet Count Result 230 k/mm3 (150-375); Red Blood Count 3.89 M/mm3 (4.2-5.4); Red Cell Distribution Width 13.6 % (11.5-14.5); White Blood Count 10.8 K/mm3 (4.5-10.0)
[2024-12-06 10:18] LABS: Bacteria Urine 1+ /hpf; Non Pathogenic Casts 0-2; RBC Urine 0-2 /hpf (0-2); Squamous Epithelial Cell Urine Few /hpf (Few); WBC Urine 51-100 /hpf (0-3)
[2024-12-06 10:23] LABS: Alanine Aminotransferase 14 U/L (6-35); Albumin Level 3.8 g/dL (3.5-5.1); Alkaline Phosphatase 141 U/L (38-126); Anion Gap 11 mmol/L (4-12); Aspartate Amino Transferase 17 U/L (14-36); Bilirubin,Total 0.3 mg/dL (0.2-1.3); Blood Urea Nitrogen 12 mg/dL (7-17); Calcium 8.8 mg/dL (8.4-10.2); Carbon Dioxide 19 mmol/L (22-30); Chloride 106 mmol/L (98-107); Estimated Glomerular Filt Rate > 60; Glucose 119 mg/dL (65-110); Potassium 4.2 mmol/L (3.4-5.0); Sodium 136 mmol/L (137-145); Uric Acid 5.3 mg/dL (2.5-7.5)
[2024-12-06 10:24] LABS: Add Urine Microscopic? YES; Appearance Urine Clear (Clear); Color Urine Yellow (Yellow); Protein Urine Trace mg/dL (Negative)
[2024-12-06 10:25] LABS: Bilirubin Urine Negative (Negative); Blood Urine Negative (Negative); Glucose Urine UA Negative (Negative); Ketones Urine Negative (Negative); Leukocyte Esterase Ur 1+ LEU/UL (Negative); Nitrate Urine Negative (Negative); Urobilinogen Urine Negative mg/dL (<2.0)
[2024-12-06 10:26] LABS: Total Protein Urine Random 9 mg/dL; Ur Ttl Prot Creatinine Ratio 0.06 mg/mg (0-0.20)
[2024-12-06 11:45] VITALS: BP 134/79; PULSE 78
== END 2024-12-12 17:59 | disposition home or self-care (01) ==
LOC: ANHOBOP 09:36
PROVIDERS: Advanced Practice Midwife; Visit Provider Obstetrics & Gynecology
DX: O26.893 Other specified pregnancy related conditions, third trimester (principal); R03.0 Elevated blood-pressure reading, without diagnosis of hypertension; Z3A.36 36 weeks gestation of pregnancy
CPT/HCPCS: 36415; 59025; 80053; 81001; 82570; 84156; 84550; 85025; 87086

== ENCOUNTER 2024-12-08 00:02 | Inpatient (IN) | payer BC, SELFPAY ==
[2024-12-08] VITALS (142 sets, daily range): BP systolic 97–165; BP diastolic 12–134; PULSE 32–298; RESP 18–20; TEMP 36.6–36.8; O2SAT 86–100; BMI 37.0
--- OUTSIDE RECORDS SUMMARY | 2024-12-08 00:10 | XMS_ITS | Data Portability ---
Author Organization [facility] Address [address] [place] [address] [place] [address] Assessment Encounter Date Assessment Date Assessment LastModified by Organization Details LastModified Time 12/06/2024 12/06/2024 Patient is _36__weeks . Discussed plan. Not available 12/06/2024 10:17:42 Plan of Treatment Reminders Order Date Submit Date Provider Last Modified By Organization Details Last Modified Time Details Appointments NST 2024 10:30A M NST SCHEDULE Not [...] recorde d. Surgeries None recorde d. Imaging non-str ess test 2024 025 [email or web address] [place], [address], [address], [place], [address], 12/08/2024 00:15:16 US, obstetr ic, biophys ical profile + non-str ess test 2024 025 [email or web address] [place], [address], [place], [address], 12/06/2024 15:13:10 US, [facility], biophys ical profile + non-str ess test 2024 025 [email or web address] [address], [address], [place], [address], 11/30/2024 10:19:18 Medication Orders None recorde d. Patient TargetsNo targets recorded. Patient InstructionsNo instructions recorded. Reason for Referral None Reported. Results Created Date Observation Date Name Description Value Unit Range Abnormal Flag Note LastModifiedBy Organization Detail LastModifiedTime 11/30/1911/29/2024 CULTU RE: GROUP B STREP SCREE N, REFLE X SUSCE PTIBI LITY result report SEE RESULT S BELOW Test: Cultu re: Group B Strep , Refle x Susce ptibi lity ([facility] ) Speci men Sourc e: Vagin a/Rec logan Speci men Type: Vagin al/Re ctal Speci men Date: 2024 1719 Resul t Date: 2024 0955 Resul t Statu s: Final resul t Abnor mal: No Resul ting Lab: [facility] [address] [facility] [address] Tel: CULTU RE ----- ----- ----- --- No Group B strep isola sharif at 2 days (joseph ctive broth enhan cemen t) Not Available [facility] (Lab) [address] [facility], [place], [address], 12/02/2024 10:59:15 11/10/19 25 11/08/2024 non-s tress test No observ ation record ed. [email or web address] [place] [address], [place], [address], 11/09/2024 09:30:19 11/10/19 25 11/08/2024 non-s tress test No observ ation record ed. [email or web address] [place] [address], [place], [address], 11/09/2024 10:15:59 11/23/19 25 11/22/2024 US, obste tric, follo w-up No observ ation record ed. [email or web address] [place] [address], [place], [address], 11/22/2024 17:08:53 11/23/19 25 11/22/2024 US, obstgio tric, bioph ysica l profi le + non-s tress test No observ ation record ed. [email or web address] [place] [address], [place], [address], 11/22/2024 17:09:03 11/23/19 25 11/22/2024 US, obste tric, follo w-up No observ ation record ed. [email or web address] [address] [facility], [place], [address], 11/23/2024 09:32:24 11/24/19 25 11/23/2024 US, obste tric, trans abdom inal + trans vagin al No observ ation record ed. [email or web address] [facility] [address], [place], [address], 11/23/2024 22:08:57 11/28/19 25 11/27/2024 non-s tress test No observ ation record ed. [email or web address] [place] [address], [place], [address], 11/27/2024 22:07:07 11/29/19 25 US, obste tric, bioph ysica l profi le + non-s tress test No observ ation record ed. [email or web address] [place] [address], [place], [address], 11/28/2024 09:34:08 11/29/19 25 11/28/2024 non-s tress test No observ ation record ed. [address], [place], [address], 11/30/2024 09:16:00 11/30/19 25 11/29/2024 US, obste tric, bioph ysica l profi le + non-s tress test No observ ation record ed. [email or web address] [place] [address], [place], [address], 11/29/2024 17:53:07 11/30/19 25 11/29/2024 US, obste tric, bioph ysica l profi le + non-s tress test No observ ation record ed. [email or web address] [address] [facility], [place], [address], 11/30/2024 08:57:43 11/30/19 25 11/29/2024 non-s tress test No observ ation record ed. [email or web address] [place] [address], [place], [address], 11/29/2024 20:30:32 11/30/19 US, obste tric, bioph ysica l profi le + non-s tress test No observ ation record ed. [email or web address] [place] [address], [place], [address], 11/29/2024 20:38:26 12/01/19 25 11/30/2024 imagi ng/di agnos tic resul t No observ ation record ed. [facility] [address], [place], [address], 11/30/2024 17:25:17 12/07/19 25 12/06/2024 US, obste tric, bioph ysica l profi le + non-s tress test No observ ation record ed. [email or web address] [place] [address], [place], [address], 12/06/2024 13:26:25 12/07/19 25 12/06/2024 US, obste tric, bioph ysica l profi le + non-s tress test No observ ation record ed. [email or web address] [address], [place], [address], 12/06/2024 23:31:38 12/07/19 25 12/06/2024 imagi ng/di agnos tic resul t No observ ation record ed. [facility] [address], [place], [address], 12/06/2024 14:40:53 12/08/19 25 12/06/2024 non-s tress test No observ ation record ed. [email or web address] [place] [address], [place], [address], 12/07/2024 20:20:09 Result Notes None recorded. Problems Name Problem SNOMED Code Status Onset Date Resolution Date Notes Provider Name and Address Organization Details Recorded Time Anxiety 60165787 Active sees mfm at [facility] Scheduled 08/21 & 08/28 Level II US and consult 09/18 [facility] 5 09:46:38 Asthma 472545493 Active 2023 Roya zamora [facility] 4 20:15:22 78742849 Active 2023 Roya zamora [facility] 4 19:30:51 Bicornuat e uterus 66677380 Active Yaa zamora [facility] 4 15:42:51 Bicornuat e uterus 96352958 Active Yaa zamora [facility] 4 15:42:51 Anxiety 72521092 Active sees mfm at [facility] Scheduled 08/21 & 08/28 Level II US and consult 09/18 Level II US [facility] Yaa zamora [facility] 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 5 22:23:57 Gestation al diabetes mellitus 72469669 Active Checking bs QID and serial growth Insulin 10u @ bedtime on 11/22 antental testing Yaa zamora [facility] 5 22:23:57 Problem Notes None recorded. Procedures Surgical History Date Name Laterality Status Provider Name and Address Organization Details Recorded Time 4 Date of Last Pap Smear completed Roya Albrecht [facility] 05/24/2024 18:21:00 8 [facility]24 20:17:58 Imaging Results Imaging Date Name Status LastModified by Organization Details LastModified Time 11/08/2024 non-stress test completed [email or web address] [place] [address] [address], [place], [address], 11/09/2024 09:30:19 11/08/2024 non-stress test completed [email or web address] [place] [address], [place], [address], 11/09/2024 10:15:59 11/22/2024 US, obstetric, follow-up completed [email or web address] [place] [address], [place], [address], 11/22/2024 17:08:53 11/22/2024 US, obstetric, biophysical profile + non-stress test completed [email or web address] [place] [address], [place], [address], 11/22/2024 17:09:03 11/22/2024 US, obstetric, follow-up completed [email or web address] [address], [place], [address], 11/23/2024 09:32:24 11/23/2024 US, obstetric, transabdominal + transvaginal completed [address] [facility], [place], [address], 11/23/2024 22:08:57 11/27/2024 non-stress test completed [email or web address] [place] [address], [place], [address], 11/27/2024 22:07:07 11/28/2024 US, obstetric, biophysical profile + non-stress test completed [email or web address] [place] [address], [place], [address], 11/28/2024 09:34:08 11/28/2024 non-stress test completed [address] [facility], [place], [address], 11/30/2024 09:16:00 11/29/2024 US, obstetric, biophysical profile + non-stress test completed [email or web address] [place] [address], [place], [address], 11/29/2024 17:53:07 11/29/2024 US, obstetric, biophysical profile + non-stress test completed [email or web address] [address], [place], [address], 11/30/2024 08:57:43 11/29/2024 non-stress test completed [email or web address] [place] [address], [place], [address], 11/29/2024 20:30:32 11/29/2024 US, obstetric, biophysical profile + non-stress test completed [address], [place], [address], 11/29/2024 20:38:26 11/30/2024 imaging/diagnostic result active [place] [address] [place] [address], [address], 11/30/2024 17:25:17 12/06/2024 US, obstetric, biophysical profile + non-stress test completed [email or web address] [place] [address], [place], [address], 12/06/2024 13:26:25 12/06/2024 US, obstetric, biophysical profile + non-stress test completed [email or web address] [address], [place], [address], 12/06/2024 23:31:38 12/06/2024 imaging/diagnostic result active [address], [place], [address], 12/06/2024 14:40:53 12/06/2024 non-stress test completed [email or web address] [place] [address], [place], [address], 12/07/2024 20:20:09 Procedure Notes None recorded. Medical Equipment None Reported. Allergies Allergen ID Allergen Name Allergen Category Reaction Reaction Severity Criticality Documentation Date Start Date Code Code System Note Provider Name and Address Organization Details Recorded Time 67716 ethinyl estradiol / levonorge strel medicatio n headache moderate Not available 05/24/2024 19739 8 RxNorm Roya Albrecht [facility] 20:10:59 Medications Name Sig Start Date [...] Address Organization Details Last Updated DateTime 5 285286. 26256 g 38.1 kg/m2 162.56 cm 162.56 cm 38.1 kg/m2 371199. 51 g 158 mm[Hg] 89 mm[Hg] 158 mm[Hg] 89 mm[Hg] Roya Albrecht [facility] 5 20:27:33 Date Recorded Body weight Body mass index (BMI) Body height Body weight Body mass index (BMI) Body height Systolic blood pressure Diastolic blood pressure Systolic blood pressure Diastolic blood pressure Provider Name and Address Organization Details Last Updated DateTime 5 568790. 97002 g 38.3 kg/m2 162.56 cm 258388. 1 g 38.3 kg/m2 162.56 cm 129 mm[Hg] 90 mm[Hg] 129 mm[Hg] 90 mm[Hg] Roya Albrecht [facility] 5 20:03:54 Social History Question Answer Notes LastModified by Organizat ion Details LastModified Time Tobacco Smoking Status Never Smoker Roya Albrecht [facility] 05/24/2024 20:17:42 What Is Your Level Of Alcohol Consumption? None [email or web address] Information not available 05/24/2024 If You Are , What Was Your Level Of Alcohol Consumption Prior To ? Occasional Information not available 05/24/2024 How Many Years Have You Consumed Alcohol? 8 [email or web address] Information not available 05/24/2024 Are You Blind Or Do You Have Difficulty Seeing? No [email or web address] Information n ot available 05/24/2024 What Is Your Level Of Caffeine Consumption? Moderate [email or web address] Information not available 05/24/2024 In The 14 Days Before Symptom Onset, Have You Had Close Contact With A Laboratory-confirm ed COVID-19 While That Case Was Ill? No Information n ot available 05/24/2024 In The 14 Days Before Symptom Onset, Have You Had Close Contact With A Person Who Is Under Investigation For COVID-19 While That Person Was Ill? No [email or web address] Information not available 05/24/2024 Have You Been To An Area Known To Be High Risk For COVID-19? No Information not available 05/24/2024 Are You Currently Employed? Yes Information not available 10/25/2024 Are You Deaf Or Do You Have Serious Difficulty Hearing? No [email or web address] Information not available 05/24/2024 What Type Of Diet Are You Following? REGULAR Information n ot available 05/24/2024 What Is The Highest Grade Or Level Of School You Have Completed Or The Highest Degree You Have Received? 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 Yes [email or web address] Information not available 05/24/2024 Do You Use Protection During Sex? No [email or web address] Information not available 05/24/2024 Do You Use Your Seat Belt Or Car Seat Routinely? Yes [email or web address] Information not available 05/24/2024 Are You Sexually Active? Yes [email or web address] Information not available 10/25/2024 Do You Have Smoke And Carbon Monoxide Detectors In Your Home? Yes [email or web address] Information not available 05/24/2024 How Much Tobacco Do You Smoke? No [email or web address] Information not available 05/24/2024 Do You Feel Stressed (tense, Restless, Nervous, Or Anxious, Or Unable To Sleep At Night)? [id number] [email or web address] Information not available 05/24/2024 Do You Use Any Illicit Or Recreational Drugs? Yes [email or web address] Information not available 05/24/2024 Do You Use Sunscreen Routinely? No [email or web address] Information not available 05/24/2024 Has Tobacco Cessation Counseling Been Provided? Yes Information not available 05/24/2024 On What Date Was Tobacco Cessation Counseling Provided? 12/06/2024 [email or web address] Information not available 12/06/2024 Have You Used IV Drugs? No [email or web address] Information not available 05/24/2024 Do You Or Have You Ever Used Any Other Forms Of Tobacco Or Nicotine? No Information not available 05/24/2024 Sex: Unknown Functional Status Question Answer Note LastModified by Organizat ion Details LastModified Time Do you have difficulty walking or climbing stairs? No [email or web address] Information not available 05/24/2024 Are you able to walk? YESWOREST [email or web address] Information not available 05/24/2024 Are you able to care for yourself? Yes [email or web address] Information not available 05/24/2024 Do you have difficulty dressing or bathing? No [email or web address] Information not available 05/24/2024 What is your exercise level? Occasional [email or web address] Information not available 05/24/2024 Mental Status None recorded. Family History Relationship Description Onset Age of this Age Resolved Age Notes LastModified by Organization Details LastModified Time Father Diabetes mellitus [email or web address] Not available 05/24 18:21:00 Maternal Grandmother Malignant tumor of breast 60 [email or web address] Not available 05/24 20:17:04 Paternal Uncle Malignant neoplasm of lung [email or web address] Not available 05/24 20:17:14 Medical History Condition [...] SNOMED-CT Code Diagnosis ICD10 Code Diagnosis Note [id number] Geoffrey Nguyen MD [place] [address],[facility] [place] [address] 05/24/2024 16:32:42 05/24/2024 17:47:12 [id number] [place]HA [place] [address],[facility] [place] [address] 05/24/2024 16:33:03 05/25/2024 09:42:07 Amenorrhea 85893121 N91.2 pap not collected, records release signedasth ma-inhaler as neededPNV dailywill talk to dr. turner about clonazepam , will await her answer, only use as necessary prn usereviewe d office, precaution s and education plan 12 week new ob and first look with nipt Venereal d isease screening 296015878 Z11.3 Anxiety 62787562 F41.9 [id number] Geoffrey Nguyen MD [place] [address] [address] 06/21/2024 17:33:21 06/22/2024 02:59:39 screening 739926151 Z36.82 Z3A.12 [id number] Mirna Traylor [facility] [address],[place] [address] 06/21/2024 17:34:12 06/23/2024 12:41:54 Gestation period, 13 weeks 91298768 Z3A.13 Routine an tenatal care 988651255 Z34.90 [id number] [facility] [address],[place] [address] 07/19/2024 17:12:06 07/19/2024 17:48:43 [id number] Geoffrey Nguyen MD [place] [address],[place] [address] 08/15/2024 14:26:05 08/15/2024 15:13:27 Abdominal pain in 292758323 O99.891 Z3A.21 [id number] [facility] [address],[place] [address] 08/16/2024 14:58:53 08/16/2024 16:21:44 Gestation period, 21 weeks 70048959 Z3A.21 [id number] [facility] [address],[place] [address] 08/24/2024 08:55:14 08/24/2024 10:27:52 Short cervical length in 040918743 O26.879 discussed and reviewed us, cerclage, progestero ne, f/u [facility] and [place] rec [id number] [facility] [address],[place] [address] 09/13/2024 16:44:22 09/13/2024 17:26:56 Gestation period, 24 weeks 682305333 Z3A.24 [id number] Mirna Traylor CNM [place] [address],[place] [address] 10/11/2024 16:47:58 10/11/2024 17:43:19 Gestation period, 28 weeks 53876007 Z3A.28 [id number] Geoffrey Nguyen MD [place] [address],[place] [address] 10/25/2024 09:05:30 10/25/2024 10:51:00 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 Z3A.30 [id number] JAIR TURNER MD [place] [address],[place] [address] 10/25/2024 09:05:58 10/25/2024 12:13:25 Routine care 850709183 Z34.03 [id number] Mirna Traylor [facility] [address],[place] [address] 11/08/2024 17:13:06 11/08/2024 18:10:37 Gestation period, 32 weeks 4390023 Z3A.32 [id number] Mirna Traylor [facility] [address],[place] [address] 11/09/2024 09:01:13 11/09/2024 10:00:50 Gestational diabetes mellitus 33477694 O24.419 [id number] Geoffrey Nguyen MD [place] [address],[place] [address] 11/22/2024 15:56:03 11/22/2024 16:36:44 Gestational diabetes mellitus 90166609 O24.414 Z3A.34 [id number] Geoffrey Nguyen MD [place] [address],[place] [address] 11/22/2024 16:24:33 11/23/2024 08:12:21 Routine care 035688599 Z34.83 [id number] MD [place] [address],[place] [address] 11/22/2024 17:14:32 11/28/2024 03:52:01 Gestational diabetes mellitus 61753759 O24.414 Z3A.34 [id number] Geoffrey Nguyen MD [place] [address],[place] [address] 11/29/2024 16:30:16 11/29/2024 16:58:05 Gestational diabetes mellitus 07786723 O24.410 Z3A.35 [id number] Mirna Traylor [facility] [address],[place] [address] 11/29/2024 16:31:05 11/30/2024 11:51:18 Gestation period, 35 weeks 67404174 Z3A.35 Increased blood pressure 44578579 R03.0 [id number] Geoffrey Nguyen MD [place] [address],[place] [address] 12/06/2024 09:03:12 12/06/2024 09:39:13 Gestational diabetes mellitus class A2 74596935 O24.414 Z3A.36 [id number] Mirna Traylor [facility] [address],[place] [address] 12/06/2024 09:04:03 12/07/2024 20:21:19 Gestational diabetes mellitus 48573730 O24.414 [id number] Mirna Traylor [facility] [address],[place] [address] 12/06/2024 09:04:25 12/06/2024 10:20:39 Gestation period, 36 weeks 26983287 Z3A.36 Health Concerns Section Related Observation LastModified by Organization Detai ls LastModified Time None Recorded Concern Status LastModified by Organization Details LastModified Time None Recorded Advance Directives Directive None Recorded Payers Encounter Date Sequence Insurance Name Policy Number Policy Barry Covered Member ID Barry Member ID Guarantor Name 11/29/2024 1 [place] [id number] Radeana Gentzyel [id number] Radeana Coleman Gentzyel 12/06/2024 1 [place] [id number] Radeana Gentzyel [id number] Radeana M Gentzyel 12/06/2024 1 [place] [id number] Briseida Smithyel [id number] 27 Briseida Smithyel 12/06/2024 1 [place] [id number] Briseida Smithyel [id number] 27 Briseida Stout OBGyn Episode Ob Episode Information Episode Created Date Number of Fetuses Patient Bloodtype Patient rh Status Prepregnancy Weight lbs Domestic Partner Domestic Partner Phone Father Name [employer] Teacher Status 06/21/20 24 1 O Positive 202 Amarilis price OPEN Fetus Data First Name Last Name Admitted to NICU Weight (g) Sex Living Outcome Pediatric Complications Fetus ID Race Codes Race Delivery Type [id number] Problems Problem Notes Problem Name Start Date End Date Resolution Snomed Code Not e Bicornuate uterus 33606291 Anxiety 89589166 sees mfm kristi Whitakercheduled 08/21 & 08/28 Level II US and consult 09/18 Level II US [facility] Gestational diabetes mellitus 56088474 Checking bs QID and serial growthInsulin 10u [...] Weight in lbs Pre/Post Dialysis Refused Weight 200.960591479050 BP Diastolic BP Location Tested BP Systolic [...] Type Weight in lbs Pre/Post Dialysis Refused 203.52775329728 BP Diastolic BP Location Tested BP Systolic [...] Type Weight in lbs Pre/Post Dialysis Refused 208.099082931468 BP Diastolic BP Location Tested BP Systolic [...] Type Weight in lbs Pre/Post Dialysis Refused 209.516695779218 BP Diastolic BP Location Tested BP Systolic [...] Type Weight in lbs Pre/Post Dialysis Refused 216.872820597882 BP Diastolic BP Location Tested BP Systolic BP Type 77 122 Fetus Heart Rate Present A 144 Present Fetus Movement A Yes Comments Patient is having some swell ing. precautions and education, +FM, has f/u at [facility], continue pelvic rest, f/u 4 weeks with gct Flowsheet Date 10/11/2024 Fields Score Blood Edema Fundus Height Fundus Units Glucose Ketones Leukocytes Nitrite Labor Signs Protein Cervic Dilation Cervic Effacement Cervic Station neg trace Type Weight in lbs Pre/Post Dialysis Refused 221.443325700187 BP Diastolic BP Location Tested BP Systolic BP Type 82 132 Fetus Heart Rate Present Fetus Movement A Yes Comments patient had rash on thigh an d is having some swelling. reviewed precautions and education +FM, GCT today plan growth, does not have f/u at [facility] scheduled Flowsheet Date 10/25/2024 Fields Score [...] Weight in lbs Pre/Post Dialysis Refused Weight 218.462742722005 BP Diastolic BP Location Tested BP Systolic BP Type 85 L arm 132 sitting Fetus Heart Rate Present A Present Fetus Movement A Yes Comments Patient c/o [facility] [place]. C ontinues on progesterone supplementation. EFW 46%, normal fluid. 3h GTT today. Tdap discussed, declined RSV. Mood stable, anxiety improved. RTC 2 weeks. Flowsheet Date 11/08/2024 Fields Score Blood Edema Fundus Height Fundus Units Glucose Ketones Leukocytes Nitrite Labor Signs Protein Cervic Dilation Cervic Effacement Cervic Station Type Weight in lbs Pre/Post Dialysis Refused Weight 220.358402766933 BP Diastolic BP Location Tested BP Systolic BP Type 83 133 Fetus Heart Rate Present Fetus Movement Comments Flowsheet Date 11/08/2024 Fields Score Blood Edema Fundus Height Fundus Units Glucose Ketones Leukocytes Nitrite Labor Signs Protein Cervic Dilation Cervic Effacement Cervic Station neg none Type Weight in lbs Pre/Post Dialysis Refused Weight 220.635757360284 BP Diastolic BP Location Tested BP Systolic [...] Type Weight in lbs Pre/Post Dialysis Refused 219.689824253894 BP Diastolic BP Location Tested BP Systolic [...] Type Weight in lbs Pre/Post Dialysis Refused 219.689569156036 BP Diastolic BP Location Tested BP Systolic [...] Weight in lbs Pre/Post Dialysis Refused Weight 222.5522829384 BP Diastolic BP Location Tested BP Systolic BP Type 89 158 Fetus Heart Rate Present Fetus Movement Comments Flowsheet Date 11/29/2024 Fields Score Blood Edema Fundus Height Fundus Units Glucose Ketones Leukocytes Nitrite Labor Signs Protein Cervic Dilation Cervic Effacement Cervic Station neg none Type Weight in lbs Pre/Post Dialysis Refused 222.87483265483 BP Diastolic BP Location Tested BP Systolic BP Type 89 158 Fetus Heart Rate Present Fetus Movement A Yes Comments Patient is having some, cram ping, contractions and had some bleeding on . continue 10 u insulin at hs, bp elevated rpt similar denies headache, visual changes, epigastric pain, to ld for evaluation, +FM Flowsheet Date 12/06/2024 Fields Score Blood Edema Fundus Height Fundus Units Glucose Ketones Leukocytes Nitrite Labor Signs Protein Cervic Dilation Cervic Effacement Cervic Station Type Weight in lbs Pre/Post Dialysis Refused BP Diastolic BP Location Tested BP Systolic BP Type Fetus Heart Rate Present Fetus Movement Comments Flowsheet Date 12/06/2024 Fields Score Blood Edema Fundus Height Fundus Units Glucose Ketones Leukocytes Nitrite Labor Signs Protein Cervic Dilation Cervic Effacement Cervic Station Type Weight in lbs Pre/Post Dialysis Refused Weight 223.183704018559 BP Diastolic BP Location Tested BP Systolic BP Type 90 129 Fetus Heart Rate Present Fetus Movement Comments Flowsheet Date 12/06/2024 Fields Score Blood Edema Fundus Height Fundus Units Glucose Ketones Leukocytes Nitrite Labor Signs Protein Cervic Dilation Cervic Effacement Cervic Station neg none Type Weight in lbs Pre/Post Dialysis Refused [id number] BP Diastolic BP Location Tested BP Systolic BP Type 90 129 Fetus Heart Rate Present Fetus Movement A Yes Comments Patient is having contractio n and discharge. reviewed blood sugars will cont 10 u at hs, 24 hour urine was 70, IOL tomorrow for gestational HTN, +FM bpp 8/8 nst NR, large variable with cntx to ld for monitoring Menstrual History Last Menstrual Date Menses Monthly [...]
--- OUTSIDE RECORDS SUMMARY | 2024-12-08 00:10 | XMS_ITS | Referral Summary ---
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
--- OUTSIDE RECORDS SUMMARY | 2024-12-08 00:10 | XMS_ITS | Clinical Summary ---
Author Organization [facility] [address] Address [address] [place] [phone] Care Team Providers Care Ice Skater Name Role Phone Yamel Major NP Primary Care Provider [phone] Allergies No known active allergies Medications clonazePAM [...] Comments Back pain Back pain; Comme nts: [facility] 06/27/2015 - Family History Medical History Relation [...] on file Legal Sex Female 3:49 AM FACILITY COORDINATOR Gender Identity Not on file Sexual Orientation [...] patient's age to complete this topic Insurance [facility] CHOICE PLUS Care Teams Ice Skater Relationship Specialty Start Date End Date Yamel Major NP PCP - General 02/21/20
--- OUTSIDE RECORDS SUMMARY | 2024-12-08 00:11 | XMS_ITS | Clinical Summary ---
Author Organization [facility] Address [address] [place] [address] Phone Care Team Providers Care Personal Health Coach Name Role Phone Unavailable Primary Care Provider [...] Data STL ABSTRACTION Provider, Abstract 09/22/[address] [facility] - Medical [place] [address] [facility] [address] [place] [phone] Keanu Pyle MD Needs Appointment 09/18/2024 3:30 PM SALES ORDER COORDINATOR - 09/18/2024 11:59 PM SALES ORDER COORDINATOR Hospital Encounter [facility] [place] [address] [place] [address] Key Coulter MD Discharge Disposition: Home or Self Care from [...] Comments Blood Pressure 129/62 08/25/2024 3:00 PM SALES ORDER COORDINATOR Pulse 81 08/25/2024 3:00 PM SALES ORDER COORDINATOR Temperature 36.7 C (98.1 F) 08/25/2024 3:00 PM SALES ORDER COORDINATOR Respiratory Rate 18 08/25/2024 3:00 PM SALES ORDER COORDINATOR Oxygen Saturation 100% 08/25/2024 3:00 PM SALES ORDER COORDINATOR Inhaled Oxygen Concentration - - Weight 95.7 kg (211 lb) 08/25/2024 3:08 PM SALES ORDER COORDINATOR Height - - Body Mass Index - - Plan of Treatment Upcoming Encounters Date Type Department Care Team (Late st Contact Info) Description 12/29/2024 Hospital Encounter [facility] OB Triage [address] [place] [address] Dov Adkins MD [address] [facility] [address] [address] Health Maintenance Due Date Last [...] UP PER FETUS Routine 09/18/2024 4:16 PM SALES ORDER COORDINATOR drug exposure (CMS/HCC) Obesity (BMI 30-39.9) Anxiety during Short cervix affecting from Last 3 Months Results * US OB FOLLOW UP PER FETUS (09/18/2024 4:16 PM SALES ORDER COORDINATOR) Anatomical Region Laterality Modality Pelvis Ultrasound 09/18/2024 3:39 PM SALES ORDER COORDINATOR Narrative 09/18/2024 4:15 PM SALES ORDER COORDINATOR STL FOLLOW UP ----- Pat. Name: JORDI STOUT Study Date: 09/18/2024 3:39pm Pat. NO: [id number] Referring MD: COSME CASTANEDA CNM Site: [place] Revival Clerk: Stacy Vargas RDMS : 1995 Age: 29 [...] fetus by drugs O26.872: Cervical shortening Procedures 45156: Ultrasound, uterus, real time with image documentation, [...] 2 lb 0 oz EFW by Hadlock ([id number]) Head / Face / Neck Biometry: Guest Relations Agent 5.2 mm Outer IOD 38.7 mm 24w [...] and date of were verified by the collision technician prior to the exam IMPRESSION ----- 1. [...] Pat. Name:Chantale STOUT Date:09/18/2024 3:39pm Pat. NO: [id number] :COSME CASTANEDA CNM [facility]:Stacy Vargas RDMS :1995Age:29 ----- INDICATION ----- Cervical Shortening, Confirmed Exposure to Medications / Drugs, Suspected Damage to Fetus Asthma Complicating Maternal Obesity (BMI<40) Complicating Anxiety, Maternal CODING ----- Diagnoses Z3A.25: Weeks of gestation O99.342: Other mental disorders complicatingpregnancy O99.212: Obesity complicating O99.512: Diseases of the respiratory systemcomplicating O35.5XX0: Maternal care for (suspected) damage tofetus by drugs O26.872: Cervical shortening Procedures 40762: Ultrasound, uterus, real time withimage documentation, follow up, transabdominal approach per fetus HISTORY ----- OB History 1. Para 0 MATERNAL ASSESSMENT ----- Physical Exam Initial weight 93 kg, 204 lb. Initial BMI 35.02kg/m METHOD ----- Transabdominal ultrasound examination ----- Barboza . Number of fetuses: 1 DATING ----- Cycle:regular cycle GA by prior [id number] w + 3 d BIANCA by prior [...] 2 lb 0 oz EFW by Hadlock ([id number]) Head / Face / Neck Biometry: Guest Relations Agent 5.2mm Outer IOD 38.7 mm 24w 4d [...] and date of were verified by the collision technician prior tothe exam IMPRESSION ----- 1. Single [...] Final Result from Last [address] [place] [address] [address] BLUE ACCESS/TRUE BLUE PPO RX [employer] Commercial Advance Directives For more information, please contact: [phone] * Full Code (Latest Code Status on File) Date Activated Date Inactivated Comments 08/25/2024 3:08 PM 08/25/2024 7:38 PM
--- NOTE | 2024-12-08 00:55 | LDADM ---
This patient, Briseida Stout, was admitted to Labor/Delivery/Recovery 107 on 12/08/24 at 00:02. Plans for labor, pain management and were discussed with patient. Patient/family oriented to hospital policies and general routines including ID bracelet, bed and alarms, visiting hours, pain management, procedures, bathroom and other care routines, personal items, smoking policy, room service/diet and guest tray routines, infant security routines, and visiting hours. Patient/Family are encouraged to report perceived risks to care and to ask questions if they do not understand what they are told or what they should do. See OBIX for further documentation.
[2024-12-08] MEDS: miSOPROStol 25 MCG TABLET 50 MCG BUCCAL (01:15)
[2024-12-08 01:21] LABS: Basophils Absolute Auto 0.1 K/mm3 (0.0-0.1); Basophils Percent Auto 0.4 % (0.2-1.2); Eosinophils Absolute Auto 0.1 K/mm3 (0-0.3); Eosinophils Percent Auto 0.5 % (0-4.4); Hematocrit 33.9 % (37.0-47.0); Hemoglobin 11.5 g/dL (12.0-15.0); Immature Granulocyte Absolute 0.04 K/mm3 (0.00-0.031); Immature Granulocyte Percent A 0.3 % (0-0.5); Lymphocytes Absolute Auto 3.16 K/mm3 (0.9-3.2); Lymphocytes Percent Auto 25.9 % (18.3-44.2); Mean Corpuscular HGB Conc 33.9 g/dl (32-36); Mean Corpuscular Hemoglobin 30.4 pg (26-34); Mean Corpuscular Volume 89.7 fl (80-100); Monocytes Absolute Auto 1.3 K/mm3 (0.1-0.6); Monocytes Percent Auto 10.9 % (2.6-8.5); Neutrophils Absolute Auto 7.6 K/mm3 (1.3-6.7); Platelet Count Result 252 k/mm3 (150-375); Red Blood Count 3.78 M/mm3 (4.2-5.4); Red Cell Distribution Width 13.4 % (11.5-14.5); White Blood Count 12.2 K/mm3 (4.5-10.0)
[2024-12-08 01:49] LABS: Syphilis IgG/IgM Antibody Negative (Negative)
[2024-12-08 01:50] LABS: Alanine Aminotransferase 13 U/L (6-35); Albumin Level 3.8 g/dL (3.5-5.1); Alkaline Phosphatase 136 U/L (38-126); Anion Gap 9 mmol/L (4-12); Aspartate Amino Transferase 25 U/L (14-36); Bilirubin,Total 0.1 mg/dL (0.2-1.3); Blood Urea Nitrogen 11 mg/dL (7-17); Calcium 9.1 mg/dL (8.4-10.2); Carbon Dioxide 22 mmol/L (22-30); Chloride 105 mmol/L (98-107); Estimated CRCL calculation 166 ml/min; Estimated Glomerular Filt Rate > 60; Glucose 84 mg/dL (65-110); Sodium 136 mmol/L (137-145); Uric Acid 5.4 mg/dL (2.5-7.5)
[2024-12-08 02:03] LABS: HIV 1/2 Ab P24 Ag Result Negative (Negative)
[2024-12-08 05:10] LABS: Glucose Point of Care 85 mg/dl (65-105)
[2024-12-08] MEDS: LACTATED RINGERS 500 ML 999 ML IV CONT (05:49)
--- NOTE | 2024-12-08 06:32 | P.PNAN_ITS ---
Anes - Initial Pre Proc Eval Procedure: labor epidural Date/Time: 12/08/24 06:32 Surgeon: Mirna Traylor CNM Pre Op Diagnosis: labor pain Pre Op Diagnosis: IOL Patient Data Age: 29 Gender: F Height: 1.63 m Weight: 98 kg Last Vital Signs Temp 36.6 C 12/08/24 05:30 Pulse 77 12/08/24 06:31 BP 142/68 H 12/08/24 06:31 Pulse Ox 99 12/08/24 06:32 O2 Del Method Room Air 12/08/24 00:54 Allergies Allergy/AdvReac Type Severity Reaction Status Date / Time No Known Allergies Allergy Verified 12/08/24 01:01 Home Medications ?Medication ?Instructions ?Recorded ?Confirmed ?Type insulin glargine 100 unit/mL (3 10 unit subcut HS 12/02/24 12/08/24 History mL) subcutaneous pen (Lantus Solostar U-100 Insulin) vit no.95-ferrous 1 tablet PO DAILY 12/02/24 12/08/24 History fumarate 28 mg-folic acid 800 mcg tablet () Laboratory Tests 12/08/24 12/08/24 00:53 05:04 WBC 12.2 H K/mm3 (4.5-10.0) RBC 3.78 L M/mm3 (4.2-5.4) Hgb 11.5 L g/dL (12.0-15.0) Hct 33.9 L % (37.0-47.0) MCV 89.7 fl (80-100) MCH 30.4 pg (26-34) MCHC 33.9 g/dl (32-36) RDW 13.4 % (11.5-14.5) Plt Count 252 k/mm3 (150-375) MPV 11.0 H fl (7.4-10.4) Immature Gran % (Auto) 0.3 % (0-0.5) Neut % (Auto) 62.0 % (45.5-73.1) Lymph % (Auto) 25.9 % (18.3-44.2) Tama % (Auto) 10.9 H % (2.6-8.5) Eos % (Auto) 0.5 % (0-4.4) Baso % (Auto) 0.4 % (0.2-1.2) Lymph # (Auto) 3.16 K/mm3 (0.9-3.2) Tama # (Auto) 1.3 H K/mm3 (0.1-0.6) Eos # (Auto) 0.1 K/mm3 (0-0.3) Baso # (Auto) 0.1 K/mm3 (0.0-0.1) Abs Immat Gran (auto) 0.04 H K/mm3 (0.00-0.031) Absolute Neuts (auto) 7.6 H K/mm3 (1.3-6.7) Absolute Nucleated RBC 0.000 K/mm3 (0.0-0.012) Nucleated RBC % 0.0 % (0.0-0.2) Sodium 136 L mmol/L (137-145) Potassium 4.0 mmol/L (3.4-5.0) Chloride 105 mmol/L (98-107) Carbon Dioxide 22 mmol/L (22-30) Anion Gap 9 mmol/L (4-12) BUN 11 mg/dL (7-17) Creatinine 0.48 L mg/dL (0.7-1.0) Estim Creat Clear Calc 166 ml/min Estimated GFR > 60 (59 - ) Glucose 84 mg/dL (65-110) POC Capillary Glucose 85 mg/dl (65-105) Uric Acid 5.4 mg/dL (2.5-7.5) Calcium 9.1 mg/dL (8.4-10.2) Total Bilirubin 0.1 L mg/dL (0.2-1.3) AST 25 U/L (14-36) ALT 13 U/L (6-35) Alkaline Phosphatase 136 H U/L (38-126) Total Protein 7.0 g/dL (6.3-8.2) Albumin 3.8 g/dL (3.5-5.1) Syphilis IgG/IgM Ab Negative (Negative) HIV 1&2 Ab/P24 Ag 4thGn Negative (Negative) Blood Type O Positive Antibody Screen Negative Patient hx anesthesia problems: none Family hx anesthesia problems: none Results Review: All pre-operative results and documents have been reviewed as part of the pre- operative evaluation. [facility] Family History Family History (Updated 12/02/24 @ 12:57 by Beatrice N. Bartelso, RN) Father Diabetes mellitus Mother Hypertension Other Depression Social History Social History Smoking status: Never smoker Substance use: never Do You Feel Safe in your Home?: Yes Lack of Transportation: No Lack of Food: Never True Current Housing: I Have Housing Concerned About Future Housing: No Difficulty Paying Gas/Electric Bills: No Difficulty Paying for Meds: No Currently Unemployed: No Education: Bachelor's Degree Difficulty w/ Childcare or Family Care: No Spiritual care concerns: No Anes - Eval Final PreProcedure Day of Procedure 12/08/24 06:32 Patient weight: obese Heart: regular rate and rhythm Lungs: clear to auscultation and normal air movement Airway: Mallampati scale class II Neurological: alert and oriented Results Review: All pre-operative results and documents have been reviewed as part of the pre- operative evaluation. Informed Consent: The patient's anesthetic plan and its attendant risks and benefits were discussed with the patient/family/POA. Questions were solicited and answers provided to the satisfaction of the patient/family/POA.
[2024-12-08] MEDS: LACTATED RINGERS 1,000 ML 125 ML IV CONT (06:53)
[2024-12-08] MEDS: OXYTOCIN 30 UNITS/NS 500 ML 30 UNITS/500 ML BAG IV CONT (07:42)
[2024-12-08 09:08] LABS: Glucose Point of Care 79 mg/dl (65-105)
[2024-12-08 11:20] LABS: Glucose Point of Care 74 mg/dl (65-105)
[2024-12-08] MEDS: miSOPROStol 200 MCG TABLET 1000 MCG RECTAL (11:50)
--- NOTE | 2024-12-08 11:58 | WPDOBADMIT ---
Obstetrics - Admit Note Admission Note: record reviewed. No pertinent additions to the history and/or any subsequent changes in the physical findings that are not consistent with the expected course of the were found. Additions to the history and/or subsequent changes in the physical findings follow. Admit for IOL, gestational hTN, SVE 4cm SROM
--- NOTE | 2024-12-08 11:58 | PM.OBPRVD ---
OB - Vaginal Delivery Note Procedure Delivery date: 12/08/24 Events: Gestational Hypertension Induction method: AROM, Per Misoprostol Protocol and Per Pitocin Protocol Delivery monitor: External FHT and External Uterine Route of delivery: Episiotomy description: None Laceration Description: Perineal - 2nd Degree Delivery repair: vicryl Specimen: No Quantitative Blood Loss (ml): 275 Anesthesia type: Epidural Disposition: Floor Complications: No immediate complications [place] Baby Date of : 12/08/24 Time of : 11:34 Gestational Age by Date: 37 Infant gender: Male presentation: vertex position: Left Occiput Anterior Placenta delivery description: Spontaneous Cord Vessel Description: 3 Vessels, Clamped/Cut and Delayed Cord Clamping score one minute: 8 score five minutes: 9
[2024-12-08] MEDS: OXYTOCIN 30 UNITS/NS 500 ML 30 UNITS/500 ML BAG 125 UNITS IV CONT (12:10)
--- NOTE | 2024-12-08 12:35 | PC.NURSE ---
Met with patient for assistance with the initial . Baby had fed on one side but they were unable to latch him to the right. When I entered the room, baby was already on the right breast with assistance from dad. Mom had some concerns about knowing if baby is 'getting enough'. We reviewed the expected output and weight loss for newborns. Mom states that she has a history of a breast reduction in which the nipple was completely removed. We talked about how the milk ducts can regrow and the only way to know if will be successful is to try. Recommended some hand expression so mom can see if she is able to remove colostrum from the breast. We reviewed that giving formula is her preference at this time and that if baby doesn't meet his expected output and weight goals, we would let her know that supplementation is medically necessary. Mom verbalizes her understanding of this information.
[2024-12-08] MEDS: IBUPROFEN 600 MG TABLET PO ×2 (14:08→20:48)
[2024-12-08] MEDS: BENZOCAINE 20% AER SPR (*SP) 56 GM CAN 1 SPRAY TOPICAL (14:09)
[2024-12-08] MEDS: WITCH HAZEL 40 PADS 1 PAD TOPICAL (14:09)
--- NOTE | 2024-12-08 16:28 | OBPPTRN ---
Patient transferred to post room # 284 via wheelchair. Support person present. Oriented to unit, room, information board, rooming in, admission packet and security measures. Patient verbalizes understanding.
--- NOTE | 2024-12-08 16:45 | PC.NURSE ---
Provided patient with the hand expression visual aid. She is encouraged to practice tonight to see if she is able to express some colostrum. Baby had a low glucose downstairs and had to be given gel and formula. Mom says she will continue to give formula after due to the glucose issues. Encouraged her to call out for assistance with feeding and I or her night nurse will come in to help her. We will meet again in the morning to see how feeding is going and work more on latching. RN updated.
[2024-12-08] MEDS: DOCUSATE SODIUM 100 MG CAPSULE PO (18:24)
[2024-12-09 03:45] VITALS: BP 135/78; PULSE 69; RESP 16; TEMP 36.5; O2SAT 98
[2024-12-09] MEDS: IBUPROFEN 600 MG TABLET PO ×3 (03:58→17:41)
[2024-12-09 05:25] LABS: Hematocrit 30.6 % (37.0-47.0); Hemoglobin 9.9 g/dL (12.0-15.0)
[2024-12-09] MEDS: MULTIVIT/MIN/PREN/FOL AC/IRON TABLET 1 TAB PO (08:11)
[2024-12-09] MEDS: ACETAMINOPHEN 325 MG TABLET 650 MG PO ×3 (08:11→20:56)
[2024-12-09] MEDS: DOCUSATE SODIUM 100 MG CAPSULE PO ×2 (08:11→16:40)
[2024-12-09] MEDS: POLYSACCHARIDE IRON COMPLEX 150 MG CAPSULE PO ×2 (08:11→16:40)
[2024-12-09 08:33] VITALS: BP 117/71; PULSE 92; RESP 18; TEMP 36.4; O2SAT 99
--- NOTE | 2024-12-09 09:15 | PC.NURSE ---
0915: Patient called out and requested a breast pump. She has a history of a breast reduction with complete nipple removal (free-nipple technique). We reviewed that if we stimulate her breasts and her milk comes in, it's possible that milk won't be able to flow out of the nipple due to severed ducts. This could be painful and may take effort to resolve and decrease supply. Mom is very dedicated to and makes the informed decision to try pumping and . She has a breast pump at home and would like to use a hospital pump today. 1000: Set mom up with a hospital pump and the 21 mm flanges. Her nipples are flat at rest but do evonne with stimulation. Mom had increased cramping when she started pumping and she states that she has good nipple sensation. We discussed this is positive because it indicated that the nerves are somewhat intact and can signal her body to release oxytocin. Mom was able to get some drops from the right breast and was very excited. Father is very supportive. Mom is encouraged to pump 8x a day and to was her pump pieces thoroughly after each use. RN updated.
--- NOTE | 2024-12-09 10:56 | P.PNOB_ITS ---
OB - PN: Subj Subjective Date/time seen: 12/09/24 10:56 Patient comments: no complaints, pain well controlled, incisional pain, tolerating diet and flatus present OB - PN: Obj Data Labs 12/09/24 03:47 12/08/24 00:53 Labs: Laboratory Results - last 24 hr 12/08/24 12/09/24 11:06 03:47 Hgb 9.9 L Hct 30.6 L POC Capillary Glucose 74 OB - PN A/P Plan day: 1 Plan: routine care Comments: No problems, routine care Time Spent With Patient Time: Total time spent is greater than 50% in coordination of care (as documented) at patient's floor/unit and/or counseling patient: Exam 2 Const: General: comfortable, no acute distress and alert Resp: Effort & Inspection: normal respiratory effort Auscultation: no crackles, no rales and no rhonchi Cardio: Rate: regular rate Heart sounds: no click, no murmurs and no rubs GI: Inspection: non-distended GI Palp: No Tenderness to palpation present (GI) Auscultation: normal bowel sounds Other: Incision - CDI Extrem: General: normal to inspection, no pedal edema and no calf tenderness
[2024-12-09] MEDS: WITCH HAZEL 40 PADS 1 PAD TOPICAL (11:32)
[2024-12-09] MEDS: BENZOCAINE 20% AER SPR (*SP) 56 GM CAN 1 SPRAY TOPICAL (11:32)
--- NOTE | 2024-12-09 12:46 | WPDANLDPN2 ---
Anes-Prog Note L&D Date/Time: 12/09/24 12:46 Comfortable throughout: labor and delivery Neuraxial method: epidural Epidural/Spinal procedure site: clean & non-tender Neuro status: Neuro function grossly intact. Cardiovascular status: normal Respiratory status: normal Airway patency: baseline Mental status: baseline Post-Op hydration status: normal Vital Signs: Last Vital Signs Temp 36.4 C 12/09/24 08:33 Pulse 92 12/09/24 08:33 Resp 18 12/09/24 08:33 BP 117/71 12/09/24 08:33 Pulse Ox 99 12/09/24 08:33 O2 Del Method Room Air 12/08/24 20:30 Pain score (VAS): 2 Post-procedural complaints: none Patient feedback: Patient satisfied with anesthetic care.
--- NOTE | 2024-12-09 16:45 | PC.NURSE ---
Addendum entered by Pamela Wing RN 12/09/24 17:00: Feeding attempt was at 1550, not 1645. Original Note: Nursery RN requested assistance for baby. He is in the room and mom is going to attempt feeding. Per the combination presser, she is allowed to attempt at breast for 15 minutes maximum before feeding formula supplementation. Baby was sleepy and we placed him in football hold on the right breast. Mom is shown how to make a bite for baby parallel to his mouth. He is able to latch and maintain suction well. He suckled a few times and with some stimulation. We tried for about 7 minutes and mom was very excited that he was able to latch even though he did not suckle much. She was ready to move on to feeding the bottle because she is dedicated to making sure his blood sugars are stable so he can be weaned from fluids. Mom is working well with baby using chin and cheek support as well as rocking the bottle in his mouth to stimulate a suck/swallow. Nursery RN present in room to assist with bottle feeding if needed. Mother was given the option of trying the nipple shield at the next feeding if baby won't suckle. This may help keep baby at breast which is mom's ultimate goal (she knows he will most likely continue to need supplementation penitentiary) and may help him transition from bottle to breast. Parents are given education on feeding options and are supported to make feeding choices that reflect their goals. Dr. Cain aware of feeding attempt. RN updated and will pass on to night RN that patient may need assistance with using the nipple shield.
[2024-12-09 19:50] VITALS: BP 139/70; PULSE 76; RESP 16; TEMP 36
[2024-12-09 23:30] VITALS: BP 142/65; PULSE 68; RESP 16; TEMP 36.2
[2024-12-10] MEDS: IBUPROFEN 600 MG TABLET PO ×2 (02:22→09:31)
[2024-12-10] MEDS: BENZOCAINE 20% AER SPR (*SP) 56 GM CAN 1 SPRAY TOPICAL (02:23)
[2024-12-10] MEDS: ACETAMINOPHEN 325 MG TABLET 650 MG PO ×2 (02:23→09:31)
[2024-12-10] MEDS: WITCH HAZEL 40 PADS 1 PAD TOPICAL (02:23)
[2024-12-10 06:40] VITALS: BP 139/73; PULSE 74; RESP 20; TEMP 36.1
[2024-12-10] MEDS: MULTIVIT/MIN/PREN/FOL AC/IRON TABLET 1 TAB PO (09:27)
[2024-12-10] MEDS: POLYSACCHARIDE IRON COMPLEX 150 MG CAPSULE PO (09:27)
[2024-12-10] MEDS: DOCUSATE SODIUM 100 MG CAPSULE PO (09:27)
--- NOTE | 2024-12-10 10:33 | P.PNOB_ITS ---
OB - PN: Subj Subjective Date/time seen: 12/10/24 10:33 Patient comments: no complaints, pain well controlled and tolerating diet OB - PN: Obj Data Labs 12/09/24 03:47 12/08/24 00:53 OB - PN A/P Plan day: 2 Plan: routine care and discharge home Time Spent With Patient Time: Total time spent is greater than 50% in coordination of care (as documented) at patient's floor/unit and/or counseling patient: Exam 2 Const: General: comfortable and no acute distress Resp: Effort & Inspection: normal respiratory effort Auscultation: no rales, no rhonchi and no wheezes Cardio: Rate: regular rate Heart sounds: no click, no murmurs and no rubs GI: GI Palp: Yes Soft to palpation and No Tenderness to palpation present (GI) Auscultation: normal bowel sounds Extrem: General: normal to inspection, no pedal edema and no calf tenderness
--- NOTE | 2024-12-10 10:34 | PM.OBDSVD ---
DS: Admitting Diagnosis Discharge Date 12/10/2024 Admitting Diagnosis Term DS: Discharge Diagnosis Discharge Diagnosis (1) Term delivered: Code(s): O80 - Encounter for full-term uncomplicated delivery Status: Acute OB - DS: Summary OB Procedures : None OB Procedures Intrapartum: Spontaneous Vag Delivery OB Procedures: : None Peripartum Data Laceration Description: Perineal - 2nd Degree Episiotomy description: None Time Spent with Patient Time attestation: Total time spent providing and/or coordinating discharge services: Discharge Plan Discharge Discharging Clinician: Geoffrey Nguyen Patient Disposition: Home Activity: pelvic rest Diet: regular Patient Instructions: Antibiotic Form Patient Language: Upper Sorbian Stand Alone Forms: General Discharge Information Follow-up/Referrals: Geoffrey Nguyen MD [Physician] - Discharge Medications: Continued insulin glargine [Lantus Solostar U-100 Insulin] 100 unit/mL (3 mL) insulin pen 10 unit SUBCUT HS PNV cmb#95-ferrous fumarate-FA [] 28 mg iron- 800 mcg tablet 1 tablet PO DAILY Date of admission: 12/08/24 00:02 Primary Care Provider: UNKNOWN,DOCTOR Admitting Provider: Geoffrey Nguyen Attending physician on admission: Mirna Traylor Condition: Stable
[2024-12-12 08:46] VITALS: BP 135/74; PULSE 77; RESP 18; TEMP 36.6; O2SAT 100
== END 2024-12-10 12:00 | disposition home or self-care (01) | DRG 807 ==
LOC: ANHLDR 00:09 → ANHOB2 16:32
PROVIDERS: Admitting Provider Obstetrics & Gynecology; Visit Provider Advanced Practice Midwife
DX: O13.4 Gestational [pregnancy-induced] hypertension without significant proteinuria, complicating childbirth (principal); Z37.0 Single live birth; O24.429 Gestational diabetes mellitus in childbirth, unspecified control; O70.1 Second degree perineal laceration during delivery; Z3A.37 37 weeks gestation of pregnancy
CPT/HCPCS: 36415; 80053; 82948; 84550; 85014; 85018; 85025; 86593; 86703; 86850; 86900; 86901; A9270; G0432; J2590; J2795; J7120